=== PATIENT | female | born 1930 | race Caucasian/White ===

== ENCOUNTER 2017-04-21 15:26 | Emergency (ER) | payer MEDICARE ==
[~2017-04-21] VITALS: Ht 152.4 cm; Wt 44.5 kg
[~2017-04-21 15:26] MED LIST: ACET325T9 PO; ALBU2.5V14 NEB; AMOX1TAB10 PO; ASPI-630 PO; BIFI1CAP PO; CALC-614 PO; CHOL100013 PO; HYDR500C16 PO; LORA0.5T PO; OMEG1CAP27 PO
--- NOTE | 2017-04-21 15:51 | PHYS DOC ---
Past Medical History Past Medical History: Anxiety, COPD, Depression, GERD, Pneumonia, UTI Additional Past Medical Histor: ULCER BRONCHIECTASIS POLYCYTHEMIA Past Surgical History: Hysterectomy Additional Past Surgical Histo: RIGHT MESECTOMY COLON RESECTION Alcohol Use: None Drug Use: None Adult General Chief Complaint Chief Complaint: WEAKNESS/GENERALIZED HPI HPI Patient is a 87 year old female who presents with complaint of fatigue and weakness. The patient was brought to the emergency department from a half-way by EMS after they were called due to patient being reported as unresponsive prior to their arrival. The patient has been undergoing care at the half-way after being recently hospitalized and treated for pneumonia. Patient recently finished her last dose of Levaquin for treatment. Patient also notes "they've been giving me a bunch of junk." When asked to clarify the patient was able to identify that she has been taking Ativan and states they have been treating her for anxiety with the medication. The patient states she has not been asking for it but states that they have been giving it to her daily. Patient has history of COPD. The patient currently is on oxygen to keep her oxygen saturations above 92%. Patient states that she does not normally wear oxygen regularly. Patient is currently under the care of Dr. Power at her half-way. Patient denies any other complaints at this time including chest pain, abdominal pain, nausea, vomiting, or shortness of breath. Review of Systems Review of Systems Constitutional: Generalized weakness, fatigue, denies fever or chills [] Eyes: Denies change in visual acuity, redness, or eye pain [] HENT: Denies nasal congestion or sore throat [] Respiratory: Denies cough or shortness of breath [] Cardiovascular: Denies chest pain or edema[] GI: Denies abdominal pain, nausea, vomiting, bloody stools or diarrhea [] : Denies dysuria or hematuria [] Musculoskeletal: Denies back pain or joint pain [] Integument: Denies rash or skin lesions [] Neurologic: Denies headache, focal weakness or sensory changes [] Allergies Allergies Allergies Coded Allergies Type Severity Reaction Last Updated Verified Sulfa (Sulfonamide Antibiotics) Allergy Intermediate Rash 01/12/14 Yes codeine Allergy Intermediate 04/07/16 Yes colloidal oatmeal Allergy Intermediate 04/07/16 Yes cyclobenzaprine Allergy Intermediate 04/07/16 Yes dimethicone Allergy Intermediate 04/07/16 Yes fentanyl Allergy Intermediate Shortness of Air 01/02/14 Yes menthol Allergy Intermediate 04/07/16 Yes morphine Allergy Intermediate 04/07/16 Yes moxifloxacin Allergy Intermediate 04/07/16 Yes soap Allergy Intermediate 04/07/16 Yes Physical Exam Physical Exam Constitutional: Alert, afebrile, no acute distress. [] HENT: Normocephalic, atraumatic, bilateral external ears normal, oropharynx moist, no oral exudates, nose normal. [] Eyes: PERRLA, EOMI, conjunctiva normal, no discharge. [] Neck: Normal range of motion, no tenderness, supple, no stridor. [] Cardiovascular:Heart rate regular rhythm, no murmur. [] Lungs & Thorax: Mild to moderate shortness of air movement bilaterally, no wheezes, coarse dry rales bilaterally.[] Abdomen: Bowel sounds normal, soft, no tenderness, no masses, no pulsatile masses. [] Skin: Warm, dry, no erythema, no rash. [] Back: No tenderness, no CVA tenderness. [] Extremities: No tenderness, no cyanosis, no clubbing, ROM intact, no edema. [] Neurologic: Alert and oriented X 3, normal motor function, normal sensory function, no focal deficits noted. [] Current Patient Data Vital Signs Vital Signs Date Time Temp Pulse Resp B/P (MAP) Pulse Ox O2 Delivery O2 Flow Rate FiO2 04/21/17 21:00 72 16 134/67 (89) 94 Room Air 04/21/17 19:00 2.0 04/21/17 15:30 99.0 99.0 Lab Values Laboratory Tests Test 04/21/17 16:00 04/21/17 18:25 White Blood Count 22.5 x10^3/uL (4.0-11.0) H Red Blood Count 3.64 x10^6/uL (3.50-5.40) Hemoglobin 12.1 g/dL (12.0-15.5) Hematocrit 37.3 % (36.0-47.0) Mean Corpuscular Volume 102 fL (79-100) H Mean Corpuscular Hemoglobin 33 pg (25-35) Mean Corpuscular Hemoglobin Concent 33 g/dL (31-37) Red Cell Distribution Width 18.5 % (11.5-14.5) H Platelet Count 741 x10^3/uL (140-400) H Neutrophils (%) (Auto) 98 % (31-73) H Lymphocytes (%) (Auto) 1 % (24-48) L Monocytes (%) (Auto) 0 % (0-9) Eosinophils (%) (Auto) 0 % (0-3) Basophils (%) (Auto) 0 % (0-3) Neutrophils # (Auto) 22.1 x10^3uL (1.8-7.7) H Lymphocytes # (Auto) 0.3 x10^3/uL (1.0-4.8) L Monocytes # (Auto) 0.1 x10^3/uL (0.0-1.1) Eosinophils # (Auto) 0.0 x10^3/uL (0.0-0.7) Basophils # (Auto) 0.1 x10^3/uL (0.0-0.2) Segmented Neutrophils % 89 % (35-66) H Band Neutrophils % 5 % (0-9) Lymphocytes % 5 % (24-48) L Monocytes % 1 % (0-10) Platelet Estimate Increased (ADEQUATE) Giant Platelets Present Poikilocytosis Slight Anisocytosis Slight Macrocytosis Slight Tear Drop Cells Occ Ovalocytes Few Schistocytes Occ Sodium Level 133 mmol/L (136-145) L Potassium Level 4.2 mmol/L (3.5-5.1) Chloride Level 98 mmol/L (98-107) Carbon Dioxide Level 26 mmol/L (21-32) Anion Gap 9 (6-14) Blood Urea Nitrogen 17 mg/dL (7-20) Creatinine 0.9 mg/dL (0.6-1.0) Estimated GFR (Cockcroft-Gault) 59.4 BUN/Creatinine Ratio 19 (6-20) Glucose Level 205 mg/dL (70-99) H Calcium Level 8.5 mg/dL (8.5-10.1) Magnesium Level 2.0 mg/dL (1.8-2.4) Total Bilirubin 0.7 mg/dL (0.2-1.0) Aspartate Amino Transferase (AST) 21 U/L (15-37) Alanine Aminotransferase (ALT) 15 U/L (14-59) Alkaline Phosphatase 86 U/L (46-116) Creatine Kinase 157 U/L (26-192) Creatine Kinase MB (Mass) 1.5 ng/mL (0.0-3.6) Creatine Kinase MB Relative Index 1.0 % (0-4) Troponin I Quantitative < 0.017 ng/mL (0.000-0.055) DO-Pmo-O-Type Natriuretic Peptide 916 pg/mL (0-449) H Total Protein 6.9 g/dL (6.4-8.2) Albumin 3.0 g/dL (3.4-5.0) L Albumin/Globulin Ratio 0.8 (1.0-1.7) L Urine Collection Type U cath Urine Color Yellow Urine Clarity Clear Urine pH 6.5 Urine Specific Saffell 1.015 Urine Protein Negative mg/dL (NEG-TRACE) Urine Glucose (UA) Negative mg/dL (NEG) Urine Ketones (Stick) Negative mg/dL (NEG) Urine Blood Negative (NEG) Urine Nitrite Negative (NEG) Urine Bilirubin Negative (NEG) Urine Urobilinogen Dipstick 0.2 mg/dL (0.2 mg/dL) Urine Leukocyte Esterase Negative (NEG) Urine RBC 0 /HPF (0-2) Urine WBC Occ /HPF (0-4) Urine Bacteria 0 /HPF (0-FEW) Urine Hyaline Casts Few /HPF Urine Mucus Mod /LPF Laboratory Tests 04/21/17 16:00 Laboratory Tests 04/21/17 16:00 EKG EKG Interpreted by me: Heart rate 80, sinus rhythm, normal intervals, normal axis, no acute ST/T-wave abnormalities present[] Radiology/Procedures Radiology/Procedures One view AP chest x-ray interpreted by me: Stable right upper lobe mass, no new pulmonary infiltrates or effusions[] Course & Med Decision Making Course & Med Decision Making Pertinent Labs and Imaging studies reviewed. (See chart for details) Patient was observed in the emergency department. The patient's blood work was remarkable for an elevated white count of 22, however patient has recently completed treatment for pneumonia and was on steroid therapy which could explain the patient's leukocytosis. The patient shows no other obvious signs of acute infection. I suspect that the patient's altered mental status may have been related to administration of Ativan in her half-way for treatment of her anxiety. I recommended that this be held at this time. I spoke with the patient's primary doctor, Dr. Power, who stated he would follow-up with patient in the half-way and reorder a CBC to ensure resolution leukocytosis. Spoke with patient regarding plan of care and she is in agreement with transfer back to the half-way. Advised return emergency department for any worsening symptoms. Patient voiced understanding and in agreement with treatment plan. Dragon Disclaimer Dragon Disclaimer This electronic medical record was generated, in whole or in part, using a voice recognition dictation system. Departure Departure Impression: Primary Impression: Altered mental status Additional Impression: Leukocytosis Disposition: 03 TRANSFER SNF Condition: STABLE Referrals: [facility] HUTCHISON (PCP) Patient Instructions: Altered Mental Status Additional Instructions: It is believed that your symptoms may be due to receiving Ativan for treatment of anxiety. It is recommended that staff hold your Ativan dosing until you have been reevaluated by your physician. Your white count was found to be elevated in the emergency department. We did not identify any source of infection at this time. After speaking with your doctor, it is recommended that you have a CBC rechecked in 2-3 days. Return to the emergency department for any worsening symptoms. Problem Qualifiers Primary Impression: Altered mental status Altered mental status type: somnolence Qualified Codes: R40.0 - Somnolence Additional Impression: Leukocytosis Leukocytosis type: unspecified Qualified Codes: D72.829 - Elevated white blood cell count, unspecified LUZMA FINN MD Apr 21, 2017 15:50
--- NOTE | 2017-04-21 15:59 | EKG ---
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
[2017-04-21 16:18] LABS: BASO % 0 % (0-3); EOS % 0 % (0-3); HEMATOCRIT 37.3 % (36.0-47.0); HEMOGLOBIN 12.1 g/dL (12.0-15.5); LYMPH # 0.3 x10^3/uL (1.0-4.8); LYMPH % 1 % (24-48); MEAN CORPUSCULAR HEMOGLOBIN 33 pg (25-35); MEAN CORPUSCULAR HGB CONC 33 g/dL (31-37); MEAN CORPUSCULAR VOLUME 102 fL (79-100); MONO % 0 % (0-9); NEUT % 98 % (31-73); PLATELET COUNT 741 x10^3/uL (140-400); RED BLOOD COUNT 3.64 x10^6/uL (3.50-5.40); RED CELL DISTRIBUTION WIDTH 18.5 % (11.5-14.5); WHITE BLOOD COUNT 22.5 x10^3/uL (4.0-11.0)
[2017-04-21 16:19] LABS: BASO # 0.1 x10^3/uL (0.0-0.2)
[2017-04-21 16:39] LABS: ANISOCYTOSIS SLIGHT; PLT ESTIMATE INCREASED (ADEQUATE); POIKILOCYTOSIS SLIGHT
[2017-04-21 16:40] LABS: OVALOCYTES FEW; SCHISTOCYTES OCC; TEAR DROP CELLS OCC
[2017-04-21 16:43] LABS: CALCIUM 8.5 mg/dL (8.5-10.1); CREATININE 0.9 mg/dL (0.6-1.0); GFR 59.4; POTASSIUM 4.2 mmol/L (3.5-5.1)
[2017-04-21 16:48] LABS: ALBUMIN/GLOBULIN RATIO 0.8 (1.0-1.7); TOTAL BILIRUBIN 0.7 mg/dL (0.2-1.0); TOTAL PROTEIN 6.9 g/dL (6.4-8.2)
[2017-04-21 16:58] LABS: CKMB MASS 1.5 ng/mL (0.0-3.6)
[2017-04-21 18:49] LABS: BILIRUBIN,URINE NEGATIVE (NEG); GLUCOSE,URINE NEGATIVE (NEG); NITRITE,URINE NEGATIVE (NEG); PH,URINE 6.5; PROTEIN,URINE NEGATIVE (NEG-TRACE); UROBILINOGEN,URINE 0.2 mg/dL (0.2 mg/dL)
[2017-04-21 19:04] LABS: BACTERIA,URINE 0 /HPF (0-FEW); RBC,URINE 0 /HPF (0-2); WBC,URINE OCC /HPF (0-4)
[2017-04-21 21:00] VITALS: BP 134/67
--- NOTE | 2017-04-22 08:47 | RAD ---
Indication change in mental status. Suspect CVA. Protocol exam. A single view of the chest was obtained and is compared to an examination 03/30/2017. Chronic background changes of fibrosis are seen appearing similar to the previous exam. Parenchymal opacity in the right upper lobe is also unchanged. A consolidated pneumonia is not seen. Significant pleural fluid is not seen. There is no pneumothorax. A significant change relative to the previous exam is not seen. IMPRESSION: No acute or focal process. No significant change. Chronic changes are noted.
== END 2017-04-21 21:22 | disposition home or self-care (01) ==
LOC: ER 15:26
DX: D72.829 Elevated white blood cell count, unspecified (principal); R41.82 Altered mental status, unspecified; J44.9 Chronic obstructive pulmonary disease, unspecified; K21.9 Gastro-esophageal reflux disease without esophagitis; Z87.440 Personal history of urinary (tract) infections; Z90.710 Acquired absence of both cervix and uterus; Z88.2 Allergy status to sulfonamides; Z88.5 Allergy status to narcotic agent; Z88.1 Allergy status to other antibiotic agents; Z88.8 Allergy status to other drugs, medicaments and biological substances; Z88.4 Allergy status to anesthetic agent; Z91.018 Allergy to other foods
CPT/HCPCS: 36415; 71010; 80053; 81001; 82553; 83735; 83880; 84484; 85007; 85025; 93005; 99285; P9612

== ENCOUNTER 2017-08-29 15:56 | Emergency (ER) | payer MEDICARE ==
[2017-08-29 16:58] LABS: BASO % 0 % (0-3); EOS % 0 % (0-3); HEMATOCRIT 22.9 % (36.0-47.0); HEMOGLOBIN 7.6 g/dL (12.0-15.5); LYMPH # 0.4 x10^3/uL (1.0-4.8); LYMPH % 9 % (24-48); MEAN CORPUSCULAR HEMOGLOBIN 36 pg (25-35); MEAN CORPUSCULAR HGB CONC 33 g/dL (31-37); MEAN CORPUSCULAR VOLUME 110 fL (79-100); MONO # 0.1 x10^3/uL (0.0-1.1); MONO % 3 % (0-9); NEUT # 3.8 x10^3uL (1.8-7.7); NEUT % 87 % (31-73); PLATELET COUNT 571 x10^3/uL (140-400); RED BLOOD COUNT 2.09 x10^6/uL (3.50-5.40); RED CELL DISTRIBUTION WIDTH 37.9 % (11.5-14.5); WHITE BLOOD COUNT 4.4 x10^3/uL (4.0-11.0)
[2017-08-29 17:02] LABS: ADD MAN DIFF? YES
[2017-08-29 17:12] LABS: ANION GAP 4 (6-14); BLOOD UREA NITROGEN 17 mg/dL (7-20); BUN/CREATININE RATIO 28 (6-20); CALCIUM 8.5 mg/dL (8.5-10.1); CARBON DIOXIDE 29 mmol/L (21-32); CHLORIDE 96 mmol/L (98-107); CREATININE 0.6 mg/dL (0.6-1.0); GFR 94.8; GLUCOSE 125 mg/dL (70-99); SODIUM 129 mmol/L (136-145)
[2017-08-29 17:27] LABS: ALBUMIN 2.9 g/dL (3.4-5.0); ALBUMIN/GLOBULIN RATIO 0.7 (1.0-1.7); ALK PHOS 56 U/L (46-116); ALT (SGPT) 13 U/L (14-59); AST (SGOT) 12 U/L (15-37); MAGNESIUM 2.1 mg/dL (1.8-2.4); TOTAL BILIRUBIN 1.1 mg/dL (0.2-1.0); TOTAL PROTEIN 6.8 g/dL (6.4-8.2)
[2017-08-29] MEDS: diphenhydrAMINE 50 MG/ML VIAL IVP (17:30)
[2017-08-29] MEDS: IV NORMAL SALINE 1000ML BAG 1,000 ML IV (17:30)
[2017-08-29] MEDS: PROCHLORPERAZINE 10 MG/2 ML VIAL. IV (17:31)
[2017-08-29 17:49] LABS: BILIRUBIN,URINE NEGATIVE (NEG); CLARITY,URINE CLEAR; COLOR,URINE YELLOW; GLUCOSE,URINE NEGATIVE (NEG); NITRITE,URINE NEGATIVE (NEG); PROTEIN,URINE NEGATIVE (NEG-TRACE); UROBILINOGEN,URINE 0.2 mg/dL (0.2 mg/dL)
[2017-08-29 18:07] LABS: BACTERIA,URINE FEW /HPF (0-FEW); RBC,URINE 0 /HPF (0-2); SQUAMOUS EPITHELIAL CELL,UR MOD /LPF; WBC,URINE 0 /HPF (0-4)
[2017-08-29 18:27] LABS: % BANDS 7 % (0-9); % BASOS 1 % (0-3); % LYMPHS 7 % (24-48); % MONOS 4 % (0-10); % SEGS 81 % (35-66); PLT ESTIMATE INCREASED (ADEQUATE)
[2017-08-29 18:28] LABS: ANISOCYTOSIS MARKED; BIZZARE CELLS FEW; HYPOCHROMIA SLIGHT; OVALOCYTES MOD; STOMATOCYTES FEW; TEAR DROP CELLS OCC
== END 2017-08-29 19:35 | disposition home or self-care (01) ==
LOC: ER 15:56
DX: G43.909 Migraine, unspecified, not intractable, without status migrainosus (principal); J44.9 Chronic obstructive pulmonary disease, unspecified; D64.9 Anemia, unspecified; E87.1 Hypo-osmolality and hyponatremia; F32.9 Major depressive disorder, single episode, unspecified; F41.9 Anxiety disorder, unspecified; I10 Essential (primary) hypertension; K21.9 Gastro-esophageal reflux disease without esophagitis; Z88.2 Allergy status to sulfonamides; Z88.5 Allergy status to narcotic agent; Z88.4 Allergy status to anesthetic agent; Z88.1 Allergy status to other antibiotic agents; Z88.6 Allergy status to analgesic agent; Z88.8 Allergy status to other drugs, medicaments and biological substances
CPT/HCPCS: 36415; 71045; 80053; 81001; 83735; 85007; 85025; 93005; 96361; 96374; 96375; 99285-25; J0780; J1200; J7030

== ENCOUNTER → 2018-04-04 | Outpatient (CLI) | payer MEDICARE ==
[2017-08-29 18:46] VITALS: BP 124/59
[~2018-04-04] MED LIST changes: +ALPR0.25 PO; +FLUT9.9S NS; +GUAI-108 PO; +LEVO500T59 PO; +MELA3TAB2 PO; +PANT40TA3 PO; +PRED-220 PO; +PRED20TA PO; +PRED5TAB PO
--- NOTE | 2018-04-04 14:22 | RAD ---
Right ankle brachial index.. 04/04/2018 INDICATION: Right lower extremity wound COMPARISON STUDY: None Discussion: Left brachial pressure: 120 mmHg Right brachial pressure: Unobtainable secondary to prior mastectomy Right ankle pressure: 111 mmHg Right LU is 1.08 Impression: Normal right ankle brachial index Electronically signed by: Qasim Souza MD (04/04/2018 2:18 PM) [id number]
--- NOTE | 2018-04-04 16:46 | RAD ---
Right lower extremity arterial Doppler ultrasound HISTORY: non healing wound rt foot TECHNIQUE: Color Doppler, grayscale and duplex analysis performed of the right lower extremity arterial structures, from the common femoral artery through the runoff vessels. COMPARISON: None are available Findings: All velocity measurements are in centimeters per second. Mostly biphasic waveforms from the right common femoral artery through the calf and ankle. Mild irregular mural plaquing identified throughout. Velocities range from 46 through 111. No occlusive disease or high-grade stenosis identified. IMPRESSION: Mild atherosclerotic disease without evidence of high-grade stenosis or occlusion. Electronically signed by: Aldair Paredes MD (04/04/2018 4:42 PM) [id number]
== END | disposition home or self-care (01) ==
LOC: PMGWOUND 09:53
PROVIDERS: ATTEND Emergency Medicine Undersea and Hyperbaric Medicine
DX: I87.311 Chronic venous hypertension (idiopathic) with ulcer of right lower extremity (principal); L97.211 Non-pressure chronic ulcer of right calf limited to breakdown of skin; L89.613 Pressure ulcer of right heel, stage 3; F41.9 Anxiety disorder, unspecified; F32.9 Major depressive disorder, single episode, unspecified; J44.9 Chronic obstructive pulmonary disease, unspecified; M81.0 Age-related osteoporosis without current pathological fracture; G43.909 Migraine, unspecified, not intractable, without status migrainosus; K21.9 Gastro-esophageal reflux disease without esophagitis; Z90.710 Acquired absence of both cervix and uterus; Z85.828 Personal history of other malignant neoplasm of skin; Z85.038 Personal history of other malignant neoplasm of large intestine; Z86.711 Personal history of pulmonary embolism; Z85.3 Personal history of malignant neoplasm of breast; Z87.891 Personal history of nicotine dependence
CPT/HCPCS: 93922; 93926; 99204

== ENCOUNTER → 2018-04-25 | Outpatient (CLI) | payer MEDICARE ==
[2017-08-29 18:46] VITALS: BP 124/59
[~2018-04-25] MED LIST changes: +ACET-1574 PO; +CYAN10005 PO; +DIAZ2TAB PO; +DOCU-109 PO; +FURO40TA4 PO; +GABA-585 PO; +IBUP-1027 PO; +MAG355OR12 PO; +MAGN400O7 PO; +MENT118G TP; +METO25TA4 PO; +MINE396O2 TP; +MIRA25TA PO; +ONDA4TAB10 SL; +POLY119P19 PO; +SODI50DR NS; +TRAM50TA PO
== END | disposition home or self-care (01) ==
LOC: PMGWOUND 13:43
PROVIDERS: ATTEND Emergency Medicine Undersea and Hyperbaric Medicine
DX: I87.311 Chronic venous hypertension (idiopathic) with ulcer of right lower extremity (principal); L97.211 Non-pressure chronic ulcer of right calf limited to breakdown of skin; L89.613 Pressure ulcer of right heel, stage 3; L84 Corns and callosities; F41.9 Anxiety disorder, unspecified; F32.9 Major depressive disorder, single episode, unspecified; J44.9 Chronic obstructive pulmonary disease, unspecified; G43.909 Migraine, unspecified, not intractable, without status migrainosus; M81.0 Age-related osteoporosis without current pathological fracture; K21.9 Gastro-esophageal reflux disease without esophagitis; H91.90 Unspecified hearing loss, unspecified ear; Z90.710 Acquired absence of both cervix and uterus; Z85.3 Personal history of malignant neoplasm of breast; Z86.711 Personal history of pulmonary embolism; Z87.891 Personal history of nicotine dependence; Z85.038 Personal history of other malignant neoplasm of large intestine
CPT/HCPCS: 97597

== ENCOUNTER 2018-05-06 11:51 | Inpatient (IN) | payer MEDICARE ==
[2018-05-06] VITALS (11 sets, daily range): BP systolic 93–135; BP diastolic 43–60
[~2018-05-06] VITALS: Ht 157.5 cm; Wt 41.3 kg
[~2018-05-06 11:51] MED LIST changes: -ACET-1574 PO; -CYAN10005 PO; -DIAZ2TAB PO; -DOCU-109 PO; -FURO40TA4 PO; -GABA-585 PO; -IBUP-1027 PO; -MAG355OR12 PO; -MAGN400O7 PO; -MENT118G TP; -METO25TA4 PO; -MINE396O2 TP; -MIRA25TA PO; -ONDA4TAB10 SL; -POLY119P19 PO; -SODI50DR NS; -TRAM50TA PO
[2018-05-06 12:45] LABS: FECAL OB PT NEGATIVE (NEG)
[2018-05-06 13:03] LABS: BASO % 0 % (0-3); EOS % 0 % (0-3); LYMPH # 0.2 x10^3/uL (1.0-4.8); LYMPH % 7 % (24-48); MEAN CORPUSCULAR HEMOGLOBIN 45 pg (25-35); MEAN CORPUSCULAR HGB CONC 35 g/dL (31-37); MEAN CORPUSCULAR VOLUME 128 fL (79-100); MONO # 0.1 x10^3/uL (0.0-1.1); MONO % 5 % (0-9); NEUT # 2.4 x10^3uL (1.8-7.7); NEUT % 88 % (31-73); PLATELET COUNT 289 x10^3/uL (140-400); WHITE BLOOD COUNT 2.7 x10^3/uL (4.0-11.0)
[2018-05-06 13:08] LABS: HEMATOCRIT 15.3 % (36.0-47.0); HEMOGLOBIN 5.3 g/dL (12.0-15.5)
[2018-05-06 13:11] LABS: PROTHROMBIN TIME PATIENT 14.9 SEC (11.7-14.0)
[2018-05-06 13:14] LABS: CALCIUM 8.7 mg/dL (8.5-10.1); CREATININE 0.8 mg/dL (0.6-1.0); GFR 67.8; POTASSIUM 3.7 mmol/L (3.5-5.1)
[2018-05-06 13:20] LABS: ALBUMIN 3.4 g/dL (3.4-5.0); DIRECT BILIRUBIN 0.4 mg/dL (0.0-0.2); TOTAL BILIRUBIN 1.9 mg/dL (0.2-1.0); TOTAL PROTEIN 7.2 g/dL (6.4-8.2)
[2018-05-06 13:28] LABS: % BANDS 11 % (0-9); % BASOS 1 % (0-3); % LYMPHS 5 % (24-48); % MONOS 3 % (0-10); % SEGS 80 % (35-66); PLT ESTIMATE ADEQUATE (ADEQUATE)
[2018-05-06 13:29] LABS: ANISOCYTOSIS MARKED; POLYCHROMASIA PRESENT; TEAR DROP CELLS FEW
[2018-05-06 13:30] LABS: HYPERSEGS PRESENT; OVALOCYTES MOD; SCHISTOCYTES OCC
[2018-05-06] MEDS ORDERED: ONDANSETRON PF 4 MG/2 ML VIAL. IV PRN (13:30)
[2018-05-06] MEDS ORDERED: ACETAMINOPHEN 325 MG TABLET. PO PRN (13:30)
--- NOTE | 2018-05-06 14:23 | PHYS DOC ---
Past Medical History Past Medical History: Anxiety, COPD, Depression, GERD, Hypertension, Pneumonia , UTI Additional Past Medical Histor: ULCER; BRONCHIECTASIS; POLYCYTHEMIA VERA Past Surgical History: Hysterectomy Additional Past Surgical Histo: RIGHT MASTECTOMY; COLON RESECTION Alcohol Use: None Drug Use: None Adult General Chief Complaint Chief Complaint: OTHER COMPLAINTS [facility] HPI Patient is a 88 year old female who presents with anemia. The patient denies complaints. She [facility] Her hemoglobin was checked this morning and noted to be less than 6. The patient states she was having breakfast when the ambulance personnel came to pick her up and she was unaware why. On arrival to the ER she is awake and alert and pleasant. She has no complaints of dizziness, tachycardia. She denies melena or hematochezia. No abdominal pain. Review of Systems Review of Systems Constitutional: Denies fever or chills Eyes: Denies change in visual acuity HENT: Denies Respiratory: Denies cough Cardiovascular: No additional information not addressed in HPI GI: Denies abdominal pain : Denies dysuria or hematuria Musculoskeletal: Denies back pain Integument: Denies rash Neurologic: Denies headache All other systems were reviewed and found to be within normal limits, except as documented in this note. Allergies Allergies Allergies Coded Allergies Type Severity Reaction Last Updated Verified Sulfa (Sulfonamide Antibiotics) Allergy Intermediate Rash 01/12/14 Yes codeine Allergy Intermediate 04/07/16 Yes colloidal oatmeal Allergy Intermediate 04/07/16 Yes cyclobenzaprine Allergy Intermediate 04/07/16 Yes dimethicone Allergy Intermediate 04/07/16 Yes fentanyl Allergy Intermediate Shortness of Air 01/02/14 Yes menthol Allergy Intermediate 04/07/16 Yes morphine Allergy Intermediate 04/07/16 Yes moxifloxacin Allergy Intermediate 06/26/17 Yes soap Allergy Intermediate 04/07/16 Yes Physical Exam Physical Exam Constitutional: Well developed, well nourished, no acute distress, non-toxic appearance HENT: Normocephalic, atraumatic, bilateral external ears normal, oropharynx moist Eyes: PERRLA, EOMI, conjunctiva are pale Neck: Normal range of motion, no tenderness, supple Cardiovascular:Heart rate regular rhythm, 3/6 systolic murmur heard over globally Lungs & Thorax: Bilateral breath sounds clear to auscultation Abdomen: Bowel sounds normal, soft, no tenderness Skin: Warm, dry, no erythema, no rash, pale Back: No tenderness Extremities: No edema. clean dry dressing over left heel Neurologic: Alert and oriented X 3, normal motor function Psychologic: Affect normal Current Patient Data Vital Signs Vital Signs Date Time Temp Pulse Resp B/P (MAP) Pulse Ox O2 Delivery O2 Flow Rate FiO2 05/06/18 11:51 97.7 81 14 103/52 (69) 97 Room Air 97.7 Lab Values Laboratory Tests Test 05/06/18 12:20 05/06/18 12:45 Stool Occult Blood Negative (NEG) White Blood Count 2.7 x10^3/uL (4.0-11.0) L Red Blood Count 1.20 x10^6/uL (3.50-5.40) L Hemoglobin 5.3 g/dL (12.0-15.5) *L Hematocrit 15.3 % (36.0-47.0) *L Mean Corpuscular Volume 128 fL (79-100) H Mean Corpuscular Hemoglobin 45 pg (25-35) H Mean Corpuscular Hemoglobin Concent 35 g/dL (31-37) Red Cell Distribution Width 21.0 % (11.5-14.5) H Platelet Count 289 x10^3/uL (140-400) Neutrophils (%) (Auto) 88 % (31-73) H Lymphocytes (%) (Auto) 7 % (24-48) L Monocytes (%) (Auto) 5 % (0-9) Eosinophils (%) (Auto) 0 % (0-3) Basophils (%) (Auto) 0 % (0-3) Neutrophils # (Auto) 2.4 x10^3uL (1.8-7.7) Lymphocytes # (Auto) 0.2 x10^3/uL (1.0-4.8) L Monocytes # (Auto) 0.1 x10^3/uL (0.0-1.1) Eosinophils # (Auto) 0.0 x10^3/uL (0.0-0.7) Basophils # (Auto) 0.0 x10^3/uL (0.0-0.2) Segmented Neutrophils % 80 % (35-66) H Band Neutrophils % 11 % (0-9) H Lymphocytes % 5 % (24-48) L Monocytes % 3 % (0-10) Basophils % 1 % (0-3) Hypersegmented Neutrophils Present Platelet Estimate Adequate (ADEQUATE) Large Platelets Few Polychromasia Present Anisocytosis Marked Macrocytosis Marked Tear Drop Cells Few Ovalocytes Mod Schistocytes Occ Reticulocyte Count (auto) 0.9 % (0.5-2.5) Prothrombin Time 14.9 SEC (11.7-14.0) H Prothrombin Time INR 1.2 (0.8-1.1) H PTT 32 SEC (24-38) Sodium Level 137 mmol/L (136-145) Potassium Level 3.7 mmol/L (3.5-5.1) Chloride Level 101 mmol/L (98-107) Carbon Dioxide Level 29 mmol/L (21-32) Anion Gap 7 (6-14) Blood Urea Nitrogen 21 mg/dL (7-20) H Creatinine 0.8 mg/dL (0.6-1.0) Estimated GFR (Cockcroft-Gault) 67.8 Glucose Level 140 mg/dL (70-99) H Calcium Level 8.7 mg/dL (8.5-10.1) Total Bilirubin 1.9 mg/dL (0.2-1.0) H Direct Bilirubin 0.4 mg/dL (0.0-0.2) H Aspartate Amino Transferase (AST) 16 U/L (15-37) Alanine Aminotransferase (ALT) 8 U/L (14-59) L Alkaline Phosphatase 61 U/L (46-116) Lactate Dehydrogenase 398 U/L (81-234) H Total Protein 7.2 g/dL (6.4-8.2) Albumin 3.4 g/dL (3.4-5.0) Laboratory Tests 05/06/18 12:45 Laboratory Tests 05/06/18 12:45 EKG EKG [] Radiology/Procedures Radiology/Procedures [] Course & Med Decision Making Course & Med Decision Making Pertinent Labs and Imaging studies reviewed. (See chart for details) Patient was evaluated in the emergency department for anemia. Her hemoglobin was found to be 5.2. 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 Because of this, I did consult with hematology physician liaison. Some additional labs were ordered at the request including reticulocyte count, vitamin B studies, iron studies. Today, the patient is macrocytic with an MCV over 120. In the emergency department, her vital signs remained stable. She was not tachycardic. She had no complaints. Orders are placed to type and cross and transfuse for 2 units of packed red blood cells on admission. Consult was placed for oncology to see the patient. Bridge orders placed. I spoke to Dr. Mckoy, the patient's primary, who was agreeable to admit the patient. Dragon Disclaimer Dragon Disclaimer This electronic medical record was generated, in whole or in part, using a voice recognition dictation system. Departure Departure Referrals: KYLE MCKOY MD (PCP) JOHNNY JOHNSON DO May 06, 2018 14:23
--- NOTE | 2018-05-06 16:04 | PDOC2 ---
CONSULT Date of Consult Date of Consult DATE: 05/06/18 TIME: 15:51 Reason for Consult Reason for Consult: Anemia with MCV >120 Referring Physician Referring Physician: Dr. Zamna Source Source: Chart review, Patient History of Present Illness Reason for Visit: 88 yo female who has a history of polycythemia with myelofibrosis for many years. She was last seen by hematology 07/19/[address] Salazar. At that time she was on Hydrea 1000mg daily. She had a cbc that showed her hgb was <6 and she was sent to the ED for evaluation. Upon arrival she had a repeat cbc that showed a wbc of 2.7, hgb of 5.3 and plt count of 289 with an MCV of 128. The patient denies any bleeding or other symptoms. From talking to her and reviewing her med list it appears she has been continuing her hydrea but at a dose of 1000mg twice daily. She denies any sob, chest pain. I spoke to the ED about her case and iron studies, b12, folic acid, retic, haptoglobin, LDH labs were ordered prior to her being transfused. Past Medical History Cardiovascular: HTN Pulmonary: COPD, Other Heme/Onc: Cancer Past Surgical History Past Surgical History: Mastectomy, Tonsillectomy, Hysterectomy, Colon Resection Family History Family History: Cancer Social History ALCOHOL: occassional Drugs: None Current Medications Current Medications Current Medications Ondansetron HCl (Zofran) 4 mg PRN Q8HRS PRN IV NAUSEA/VOMITING; Start at 13:30; Stop 05/07/18 at 13:29 Acetaminophen (Tylenol) 650 mg PRN Q4HRS PRN PO FEVER; Start 05/06/18 at 13:30 ; Stop 05/07/18 at 13:29 Active Scripts Active Reported Xanax (Alprazolam) 0.25 Mg Tablet 1 Tab PO DAILY Protonix (Pantoprazole Sodium) 40 Mg Tablet.dr 1 Tab PO DAILY Prednisone 20 Mg Tablet 40 Mg PO DAILY Prednisone 20 Mg Tablet 1 Tab PO DAILY Prednisone 10 Mg Tablet 30 Mg PO DAILY Prednisone 5 Mg Tablet 5 Mg PO Melatonin 3 Mg Tablet 6 Mg PO Levaquin (Levofloxacin) 500 Mg Tablet 1 Tab PO DAILY Mucinex Dm Er 600-30 Mg Tablet (Guaifenesin/Dextromethorphan) 1 Each Tab.er.12h 1 Tab PO PRN Q12HRS Flonase Allergy Relief (Fluticasone Propionate) 9.9 Ml [place].susp 2 Sprays NS DAILY Albuterol Sulfate Conc Neb Soln (Albuterol Sulfate) 2.5 Mg/0.5 Ml Vial.neb 2.5 Mg NEB PRN Q4HRS PRN Tylenol (Acetaminophen) 325 Mg Tablet 1 Tab PO PRN Q4HRS PRN Digestive Probiotic (Bifidobacterium Infantis) 1 Each Capsule 1 Each PO DAILY Lorazepam 0.5 Mg Tablet 0.5 Mg PO BID Fish Oil 1,000 Mg Softgel (Fellows-3 Fatty Acids/Fish Oil) 1 Each Capsule 1 Each PO DAILY Vitamin D (Cholecalciferol (Vitamin D3)) 1,000 Unit Capsule 1,000 Unit PO DAILY Calcium Citrate 200 Mg Tablet 200 Mg PO DAILY Hydroxyurea 500 Mg Capsule 500 Mg PO DAILY Allergies Allergies: Coded Allergies: Sulfa (Sulfonamide Antibiotics) (Verified Allergy, Intermediate, Rash, ) codeine (Verified Allergy, Intermediate, 05/06/18) colloidal oatmeal (Verified Allergy, Intermediate, 05/06/18) cyclobenzaprine (Verified Allergy, Intermediate, 05/06/18) dimethicone (Verified Allergy, Intermediate, 05/06/18) fentanyl (Verified Allergy, Intermediate, Shortness of Air, 05/06/18) menthol (Verified Allergy, Intermediate, 05/06/18) morphine (Verified Allergy, Intermediate, 05/06/18) moxifloxacin (Verified Allergy, Intermediate, 05/06/18) PT CURRENTLY TAKING LEVAQUIN PO WITH NO PROBLEM soap (Verified Allergy, Intermediate, 05/06/18) ROS General: No: Chills, Night Sweats, Fatigue, Malaise, Appetite, Other PSYCHOLOGICAL ROS: No: Anxiety, Behavioral Disorder, Concentration difficultie , Decreased libido, Depression, Disorientation, Hallucinations, Hostility, Irritablity, Memory difficulties, Mood Swings, Obsessive thoughts, Physical abuse, Sexual abuse, Sleep disturbances, Suicidal ideation, Other Eyes: No Blurry vision, No Decreased vision, No Double vision, No Dry eyes, No Excessive tearing, No Eye Pain, No Itchy Eyes, No Loss of vision, No Photophobia , No Scotomata, No Uses contacts, No Uses glasses, No Other HEENT: No: Heacaches, Visual Changes, Hearing change, Nasal congestion, Nasal discharge, Oral lesions, Sinus pain, Sore Throat, Epistaxis, Sneezing, Snoring, Tinnitus, Vertigo, Vocal changes, Other ALLERGY AND IMMUNOLOGY: No: Hives, Insect Bite Sensitivity, Itchy/Watery Eyes, Nasal Congestion, Post Nasal Drip, Seasonal Allergies, Other Hematological and Lymphatic: No: Bleeding Problems, Blood Clots, Blood Transfusions, Brusing, Night Sweats, Pallor, Swollen Lymph Nodes, Other ENDOCRINE: No: Breast Changes, Galactorrhea, Hair Pattern Changes, Hot Flashes , Malaise/lethargy, Mood Swings, Palpitations, Polydipsia/polyuria, Skin Changes , Temperature Intolerance, Unexpected Weight Changes, Other Breast: No New/Changing Breast Lumps, No Nipple changes, No Nipple discharge, No Other Respiratory: No: Cough, Hemoptysis, Orthopnea, Pleuritic Pain, Shortness of breath, SOB with excertion, Sputum Changes, Stridor, Tachypnea, Wheezing, Other Cardiovascular: No Chest Pain, No Palpitations, No Orthopnea, No Paroxysmal Noc. Dyspnea, No Edema, No Lt Headedness, No Other Gastrointestinal: No Nausea, No Vomiting, No Abdominal Pain, No Diarrhea, No Constipation, No Melena, No Hematochezia, No Other Genitourinary: No Dysuria, No Frequency, No Incontinence, No Hematuria, No Retention, No Discharge, No Urgency, No Pain, No Flank Pain, No Other, No , No , No , No , No , No , No Musculoskeletal: No Gait Disturbance, No Joint Pain, No Joint Stiffness, No Joint Swelling, No Muscle Pain, No Muscular Weakness, No Pain In:, No Swelling In:, No Other Neurological: No Behavorial Changes, No Bowel/Bladder ControlChng, No Confusion , No Dizziness, No Gait Disturbance, No Headaches, No Impaired Coord/balance, No Memory Loss, No Numbness/Tingling, No Seizures, No Speech Problems, No Tremors, No Visual Changes, No Weakness, No Other Skin: No Dry Skin, No Eczema, No Hair Changes, No Lumps, No Mole Changes, No Mottling, No Nail Changes, No Pruritus, No Rash, No Skin Lesion Changes, No Other, No Acne Physical Exam General: Alert, Cooperative, No acute distress HEENT: PERRLA Lungs: Clear to auscultation, Normal air movement Heart: Regular rate, Normal S1, Other (positive murmur ?flow) Abdomen: Normal bowel sounds, Soft, No tenderness Extremities: No clubbing Vitals VITALS Vital Signs Date Time Temp Pulse Resp B/P (MAP) Pulse Ox O2 Delivery O2 Flow Rate FiO2 05/06/18 15:24 Nasal Cannula 2.0 05/06/18 15:22 97.9 79 18 93/43 97.9 05/06/18 15:07 2 Labs Labs Laboratory Tests Test 05/06/18 12:20 05/06/18 12:45 05/06/18 13:55 Stool Occult Blood Negative (NEG) White Blood Count 2.7 x10^3/uL (4.0-11.0) Red Blood Count 1.20 x10^6/uL (3.50-5.40) Hemoglobin 5.3 g/dL (12.0-15.5) Hematocrit 15.3 % (36.0-47.0) Mean Corpuscular Volume 128 fL (79-100) Mean Corpuscular Hemoglobin 45 pg (25-35) Mean Corpuscular Hemoglobin Concent 35 g/dL (31-37) Red Cell Distribution Width 21.0 % (11.5-14.5) Platelet Count 289 x10^3/uL (140-400) Neutrophils (%) (Auto) 88 % (31-73) Lymphocytes (%) (Auto) 7 % (24-48) Monocytes (%) (Auto) 5 % (0-9) Eosinophils (%) (Auto) 0 % (0-3) Basophils (%) (Auto) 0 % (0-3) Neutrophils # (Auto) 2.4 x10^3uL (1.8-7.7) Lymphocytes # (Auto) 0.2 x10^3/uL (1.0-4.8) Monocytes # (Auto) 0.1 x10^3/uL (0.0-1.1) Eosinophils # (Auto) 0.0 x10^3/uL (0.0-0.7) Basophils # (Auto) 0.0 x10^3/uL (0.0-0.2) Segmented Neutrophils % 80 % (35-66) Band Neutrophils % 11 % (0-9) Lymphocytes % 5 % (24-48) Monocytes % 3 % (0-10) Basophils % 1 % (0-3) Hypersegmented Neutrophils Present Platelet Estimate Adequate (ADEQUATE) Large Platelets Few Polychromasia Present Anisocytosis Marked Macrocytosis Marked Tear Drop Cells Few Ovalocytes Mod Schistocytes Occ Reticulocyte Count (auto) 0.9 % (0.5-2.5) Prothrombin Time 14.9 SEC (11.7-14.0) Prothromb Time International Ratio 1.2 (0.8-1.1) Activated Partial Thromboplast Time 32 SEC (24-38) Sodium Level 137 mmol/L (136-145) Potassium Level 3.7 mmol/L (3.5-5.1) Chloride Level 101 mmol/L (98-107) Carbon Dioxide Level 29 mmol/L (21-32) Anion Gap 7 (6-14) Blood Urea Nitrogen 21 mg/dL (7-20) Creatinine 0.8 mg/dL (0.6-1.0) Estimated GFR (Cockcroft-Gault) 67.8 Glucose Level 140 mg/dL (70-99) Calcium Level 8.7 mg/dL (8.5-10.1) Total Bilirubin 1.9 mg/dL (0.2-1.0) Direct Bilirubin 0.4 mg/dL (0.0-0.2) Aspartate Amino Transf (AST/SGOT) 16 U/L (15-37) Alanine Aminotransferase (ALT/SGPT) 8 U/L (14-59) Alkaline Phosphatase 61 U/L (46-116) Lactate Dehydrogenase 398 U/L (81-234) Total Protein 7.2 g/dL (6.4-8.2) Albumin 3.4 g/dL (3.4-5.0) Iron Level 23 ug/dL (50-170) Total Iron Binding Capacity 206 ug/dL (250-450) Iron Saturation 11 % (15-34) Laboratory Tests Test 05/06/18 12:20 05/06/18 12:45 05/06/18 13:55 Stool Occult Blood Negative (NEG) White Blood Count 2.7 x10^3/uL (4.0-11.0) Red Blood Count 1.20 x10^6/uL (3.50-5.40) Hemoglobin 5.3 g/dL (12.0-15.5) Hematocrit 15.3 % (36.0-47.0) Mean Corpuscular Volume 128 fL (79-100) Mean Corpuscular Hemoglobin 45 pg (25-35) Mean Corpuscular Hemoglobin Concent 35 g/dL (31-37) Red Cell Distribution Width 21.0 % (11.5-14.5) Platelet Count 289 x10^3/uL (140-400) Neutrophils (%) (Auto) 88 % (31-73) Lymphocytes (%) (Auto) 7 % (24-48) Monocytes (%) (Auto) 5 % (0-9) Eosinophils (%) (Auto) 0 % (0-3) Basophils (%) (Auto) 0 % (0-3) Neutrophils # (Auto) 2.4 x10^3uL (1.8-7.7) Lymphocytes # (Auto) 0.2 x10^3/uL (1.0-4.8) Monocytes # (Auto) 0.1 x10^3/uL (0.0-1.1) Eosinophils # (Auto) 0.0 x10^3/uL (0.0-0.7) Basophils # (Auto) 0.0 x10^3/uL (0.0-0.2) Segmented Neutrophils % 80 % (35-66) Band Neutrophils % 11 % (0-9) Lymphocytes % 5 % (24-48) Monocytes % 3 % (0-10) Basophils % 1 % (0-3) Hypersegmented Neutrophils Present Platelet Estimate Adequate (ADEQUATE) Large Platelets Few Polychromasia Present Anisocytosis Marked Macrocytosis Marked Tear Drop Cells Few Ovalocytes Mod Schistocytes Occ Reticulocyte Count (auto) 0.9 % (0.5-2.5) Prothrombin Time 14.9 SEC (11.7-14.0) Prothromb Time International Ratio 1.2 (0.8-1.1) Activated Partial Thromboplast Time 32 SEC (24-38) Sodium Level 137 mmol/L (136-145) Potassium Level 3.7 mmol/L (3.5-5.1) Chloride Level 101 mmol/L (98-107) Carbon Dioxide Level 29 mmol/L (21-32) Anion Gap 7 (6-14) Blood Urea Nitrogen 21 mg/dL (7-20) Creatinine 0.8 mg/dL (0.6-1.0) Estimated GFR (Cockcroft-Gault) 67.8 Glucose Level 140 mg/dL (70-99) Calcium Level 8.7 mg/dL (8.5-10.1) Total Bilirubin 1.9 mg/dL (0.2-1.0) Direct Bilirubin 0.4 mg/dL (0.0-0.2) Aspartate Amino Transf (AST/SGOT) 16 U/L (15-37) Alanine Aminotransferase (ALT/SGPT) 8 U/L (14-59) Alkaline Phosphatase 61 U/L (46-116) Lactate Dehydrogenase 398 U/L (81-234) Total Protein 7.2 g/dL (6.4-8.2) Albumin 3.4 g/dL (3.4-5.0) Iron Level 23 ug/dL (50-170) Total Iron Binding Capacity 206 ug/dL (250-450) Iron Saturation 11 % (15-34) Assessment/Plan Assessment/Plan 1. Leukopenia 2. Anemia with hgb 5.3 MCV 128 She has a long history of polycythemia vera and more recently has developed some myelofibrosis. She also has a history of iron deficiency in the past. Agree with transfusion, which she is currently receiving. Await iron studies, b12, folic acid, haptoglobin labs to come back. I also ordered a TSH. From reviewing her NH medications she was taking Hydrea 500mg 2 tabs twice daily and this could give the picture of a macrocytic anemia. I have asked her nurse to HOLD hydrea for the time being. Eventually, she may need to be restarted but with her significant cytopenia it should be held. Last records from state she was on 1000mg daily so I am not sure where it was increased. She will need to follow up with Dr. Salazar as an outpatient for further management once she is discharged. The last evaluation from hematology was in July and she missed her follow up and never rescheduled. 2. Lung mass. She has a known lung mass and it has been documented in the past that she did not want further workup. AUBREE MALIK MD May 06, 2018 16:04
[2018-05-06] MEDS ORDERED: DOCU-109 PO (17:19)
[2018-05-06] MEDS ORDERED: MINE396O2 TP (17:19)
[2018-05-06] MEDS ORDERED: SODI50DR NS (17:19)
[2018-05-06] MEDS ORDERED: MIRA25TA PO (17:19)
[2018-05-06] MEDS ORDERED: FURO40TA4 PO (17:19)
[2018-05-06] MEDS ORDERED: GABA-585 PO (17:19)
[2018-05-06] MEDS ORDERED: TRAM50TA PO (17:19)
[2018-05-06] MEDS ORDERED: MAGN400O7 PO (17:19)
[2018-05-06] MEDS ORDERED: DIAZ2TAB PO (17:19)
[2018-05-06] MEDS ORDERED: METO25TA4 PO (17:19)
[2018-05-06] MEDS ORDERED: IBUP-1027 PO (17:19)
[2018-05-06] MEDS ORDERED: MENT118G TP (17:19)
[2018-05-06] MEDS ORDERED: HYDR500C16 PO (17:19)
[2018-05-06] MEDS ORDERED: ASPI-630 PO (17:19)
[2018-05-06] MEDS ORDERED: ACET-1574 PO (17:19)
[2018-05-06] MEDS ORDERED: POLY119P19 PO (17:19)
[2018-05-06] MEDS ORDERED: ONDA4TAB10 SL (17:19)
[2018-05-06] MEDS ORDERED: CYAN10005 PO (17:19)
[2018-05-06] MEDS ORDERED: MAG355OR12 PO (17:19)
[2018-05-07] VITALS (8 sets, daily range): BP systolic 115–146; BP diastolic 50–60
[2018-05-07 06:31] LABS: BASO % 0 % (0-3); EOS % 0 % (0-3); HEMATOCRIT 25.4 % (36.0-47.0); HEMOGLOBIN 8.7 g/dL (12.0-15.5); LYMPH # 0.3 x10^3/uL (1.0-4.8); LYMPH % 10 % (24-48); MEAN CORPUSCULAR HEMOGLOBIN 36 pg (25-35); MEAN CORPUSCULAR HGB CONC 34 g/dL (31-37); MEAN CORPUSCULAR VOLUME 104 fL (79-100); MONO # 0.1 x10^3/uL (0.0-1.1); MONO % 4 % (0-9); NEUT # 2.9 x10^3uL (1.8-7.7); NEUT % 86 % (31-73); PLATELET COUNT 260 x10^3/uL (140-400); RED BLOOD COUNT 2.44 x10^6/uL (3.50-5.40); RED CELL DISTRIBUTION WIDTH 28.9 % (11.5-14.5); WHITE BLOOD COUNT 3.3 x10^3/uL (4.0-11.0)
--- NOTE | 2018-05-07 10:52 | PDOC ---
PROGRESS NOTES Subjective Subjective Pt seen in follow-up of macrocytic anemia. She also has a history of P vera and was on Hydrea. She received 2 units of blood and her hgb improved from 5.3 to 8.7. She is having pain at her right foot where she has an ulcer Objective Objective Vital Signs Date Time Temp Pulse Resp B/P (MAP) Pulse Ox O2 Delivery O2 Flow Rate FiO2 05/07/18 08:00 Room Air 2.0 05/07/18 07:47 98.1 82 17 128/60 (82) 96 98.1 Intake and Output 05/07/18 07:00 Intake Total 305 ml Balance 305 ml Intake Oral 0 ml Blood Product IV Normal Saline Flush 305 ml Physical Exam Abdomen: Normal bowel sounds, Soft Heart: Regular rate, Normal S1, Normal S2 Extremities: No clubbing General: Alert HEENT: PERRLA Lungs: Clear to auscultation MUSCULOSKELETAL: Other (Ulcer right foot) Neuro: Normal gait Assessment Assessment Mactrocytic anemia. I think that this is most likely from her being on the Hydrea. Would continue to hold. Her hgb has improved and would continue to monitor. On labs that were ordered when I talked to the ED, her haptoglobin was a little on the low side with a slightly high bilirubin. However, I do not think she is significantly hemolyzing given her improvement. I would repeat these labs to double check. Her Hydrea should NOT be restarted until she follows with Dr. Salazar as an outpatient. I discussed this with her son and [id number] Comment Review of Relevant I have reviewed the following items raudel (where applicable) has been applied. Labs Laboratory Tests Test 05/06/18 12:20 05/06/18 12:45 05/06/18 13:55 05/07/18 05:45 Stool Occult Blood Negative (NEG) White Blood Count 2.7 x10^3/uL (4.0-11.0) 3.3 x10^3/uL (4.0-11.0) Red Blood Count 1.20 x10^6/uL (3.50-5.40) 2.44 x10^6/uL (3.50-5.40) Hemoglobin 5.3 g/dL (12.0-15.5) 8.7 g/dL (12.0-15.5) Hematocrit 15.3 % (36.0-47.0) 25.4 % (36.0-47.0) Mean Corpuscular Volume 128 fL (79-100) 104 fL (79-100) Mean Corpuscular Hemoglobin 45 pg (25-35) 36 pg (25-35) Mean Corpuscular Hemoglobin Concent 35 g/dL (31-37) 34 g/dL (31-37) Red Cell Distribution Width 21.0 % (11.5-14.5) 28.9 % (11.5-14.5) Platelet Count 289 x10^3/uL (140-400) 260 x10^3/uL (140-400) Neutrophils (%) (Auto) 88 % (31-73) 86 % (31-73) Lymphocytes (%) (Auto) 7 % (24-48) 10 % (24-48) Monocytes (%) (Auto) 5 % (0-9) 4 % (0-9) Eosinophils (%) (Auto) 0 % (0-3) 0 % (0-3) Basophils (%) (Auto) 0 % (0-3) 0 % (0-3) Neutrophils # (Auto) 2.4 x10^3uL (1.8-7.7) 2.9 x10^3uL (1.8-7.7) Lymphocytes # (Auto) 0.2 x10^3/uL (1.0-4.8) 0.3 x10^3/uL (1.0-4.8) Monocytes # (Auto) 0.1 x10^3/uL (0.0-1.1) 0.1 x10^3/uL (0.0-1.1) Eosinophils # (Auto) 0.0 x10^3/uL (0.0-0.7) 0.0 x10^3/uL (0.0-0.7) Basophils # (Auto) 0.0 x10^3/uL (0.0-0.2) 0.0 x10^3/uL (0.0-0.2) Segmented Neutrophils % 80 % (35-66) Band Neutrophils % 11 % (0-9) Lymphocytes % 5 % (24-48) Monocytes % 3 % (0-10) Basophils % 1 % (0-3) Hypersegmented Neutrophils Present Platelet Estimate Adequate (ADEQUATE) Large Platelets Few Polychromasia Present Anisocytosis Marked Macrocytosis Marked Tear Drop Cells Few Ovalocytes Mod Schistocytes Occ Reticulocyte Count (auto) 0.9 % (0.5-2.5) Prothrombin Time 14.9 SEC (11.7-14.0) Prothromb Time International Ratio 1.2 (0.8-1.1) Activated Partial Thromboplast Time 32 SEC (24-38) Sodium Level 137 mmol/L (136-145) Potassium Level 3.7 mmol/L (3.5-5.1) Chloride Level 101 mmol/L (98-107) Carbon Dioxide Level 29 mmol/L (21-32) Anion Gap 7 (6-14) Blood Urea Nitrogen 21 mg/dL (7-20) Creatinine 0.8 mg/dL (0.6-1.0) Estimated GFR (Cockcroft-Gault) 67.8 Glucose Level 140 mg/dL (70-99) Calcium Level 8.7 mg/dL (8.5-10.1) Ferritin 372 ng/mL (8-252) Total Bilirubin 1.9 mg/dL (0.2-1.0) Direct Bilirubin 0.4 mg/dL (0.0-0.2) Aspartate Amino Transf (AST/SGOT) 16 U/L (15-37) Alanine Aminotransferase (ALT/SGPT) 8 U/L (14-59) Alkaline Phosphatase 61 U/L (46-116) Lactate Dehydrogenase 398 U/L (81-234) Total Protein 7.2 g/dL (6.4-8.2) Albumin 3.4 g/dL (3.4-5.0) Haptoglobin 21 mg/dL (34-200) Iron Level 23 ug/dL (50-170) Total Iron Binding Capacity 206 ug/dL (250-450) Iron Saturation 11 % (15-34) Thyroid Stimulating Hormone (TSH) 1.393 uIU/mL (0.358-3.74) Laboratory Tests Test 05/06/18 12:20 05/06/18 12:45 05/06/18 13:55 05/07/18 05:45 Stool Occult Blood Negative (NEG) White Blood Count 2.7 x10^3/uL (4.0-11.0) 3.3 x10^3/uL (4.0-11.0) Red Blood Count 1.20 x10^6/uL (3.50-5.40) 2.44 x10^6/uL (3.50-5.40) Hemoglobin 5.3 g/dL (12.0-15.5) 8.7 g/dL (12.0-15.5) Hematocrit 15.3 % (36.0-47.0) 25.4 % (36.0-47.0) Mean Corpuscular Volume 128 fL (79-100) 104 fL (79-100) Mean Corpuscular Hemoglobin 45 pg (25-35) 36 pg (25-35) Mean Corpuscular Hemoglobin Concent 35 g/dL (31-37) 34 g/dL (31-37) Red Cell Distribution Width 21.0 % (11.5-14.5) 28.9 % (11.5-14.5) Platelet Count 289 x10^3/uL (140-400) 260 x10^3/uL (140-400) Neutrophils (%) (Auto) 88 % (31-73) 86 % (31-73) Lymphocytes (%) (Auto) 7 % (24-48) 10 % (24-48) Monocytes (%) (Auto) 5 % (0-9) 4 % (0-9) Eosinophils (%) (Auto) 0 % (0-3) 0 % (0-3) Basophils (%) (Auto) 0 % (0-3) 0 % (0-3) Neutrophils # (Auto) 2.4 x10^3uL (1.8-7.7) 2.9 x10^3uL (1.8-7.7) Lymphocytes # (Auto) 0.2 x10^3/uL (1.0-4.8) 0.3 x10^3/uL (1.0-4.8) Monocytes # (Auto) 0.1 x10^3/uL (0.0-1.1) 0.1 x10^3/uL (0.0-1.1) Eosinophils # (Auto) 0.0 x10^3/uL (0.0-0.7) 0.0 x10^3/uL (0.0-0.7) Basophils # (Auto) 0.0 x10^3/uL (0.0-0.2) 0.0 x10^3/uL (0.0-0.2) Segmented Neutrophils % 80 % (35-66) Band Neutrophils % 11 % (0-9) Lymphocytes % 5 % (24-48) Monocytes % 3 % (0-10) Basophils % 1 % (0-3) Hypersegmented Neutrophils Present Platelet Estimate Adequate (ADEQUATE) Large Platelets Few Polychromasia Present Anisocytosis Marked Macrocytosis Marked Tear Drop Cells Few Ovalocytes Mod Schistocytes Occ Reticulocyte Count (auto) 0.9 % (0.5-2.5) Prothrombin Time 14.9 SEC (11.7-14.0) Prothromb Time International Ratio 1.2 (0.8-1.1) Activated Partial Thromboplast Time 32 SEC (24-38) Sodium Level 137 mmol/L (136-145) Potassium Level 3.7 mmol/L (3.5-5.1) Chloride Level 101 mmol/L (98-107) Carbon Dioxide Level 29 mmol/L (21-32) Anion Gap 7 (6-14) Blood Urea Nitrogen 21 mg/dL (7-20) Creatinine 0.8 mg/dL (0.6-1.0) Estimated GFR (Cockcroft-Gault) 67.8 Glucose Level 140 mg/dL (70-99) Calcium Level 8.7 mg/dL (8.5-10.1) Ferritin 372 ng/mL (8-252) Total Bilirubin 1.9 mg/dL (0.2-1.0) Direct Bilirubin 0.4 mg/dL (0.0-0.2) Aspartate Amino Transf (AST/SGOT) 16 U/L (15-37) Alanine Aminotransferase (ALT/SGPT) 8 U/L (14-59) Alkaline Phosphatase 61 U/L (46-116) Lactate Dehydrogenase 398 U/L (81-234) Total Protein 7.2 g/dL (6.4-8.2) Albumin 3.4 g/dL (3.4-5.0) Haptoglobin 21 mg/dL (34-200) Iron Level 23 ug/dL (50-170) Total Iron Binding Capacity 206 ug/dL (250-450) Iron Saturation 11 % (15-34) Thyroid Stimulating Hormone (TSH) 1.393 uIU/mL (0.358-3.74) Medications Current Medications Ondansetron HCl (Zofran) 4 mg PRN Q8HRS PRN IV NAUSEA/VOMITING; Start at 13:30; Stop 05/07/18 at 13:29 Acetaminophen (Tylenol) 650 mg PRN Q4HRS PRN PO FEVER Last administered on at 08:59; Start 05/06/18 at 13:30; Stop 05/07/18 at 13:29 Active Scripts Active Reported Zofran Odt (Ondansetron) 4 Mg Tab.rapdis 0.5 Tab SL PRN Q6HRS PRN Biofreeze (Menthol) 118 Ml Gel..ml. 118 Ml TP PRN QID PRN [place] Saline (Sodium Chloride) 50 Ml Drops 2 Drop NS TID Hydroxyurea 500 Mg Capsule 1,000 Mg PO BID Milk Of Magnesia (Magnesium Hydroxide) 400 Mg/5 Ml Oral.susp 30 Ml PO PRN DAILY PRN Maalox Maximum Strength Susp (Mag Hydrox/Al Hydrox/Simeth) 355 Ml Oral.susp 30 Ml PO PRN Q4HRS PRN Aquaphor Ointment (Mineral Oil/Hydrophil Petrolat) 396 Gm Oint...g. 396 Gm TP BID Furosemide 40 Mg Tablet 1 Tab PO DAILY Valium (Diazepam) 2 Mg Tablet 2 Mg PO PRN TID PRN Metoprolol Tartrate 25 Mg Tablet 1 Tab PO DAILY Myrbetriq (Mirabegron) 25 Mg Tab.er.24h 25 Mg PO DAILY Acetaminophen Ext.release (Acetaminophen) 650 Mg Tablet.er 650 Mg PO Q6HRS Ibuprofen 400 Mg Tablet 400 Mg PO QID PRN Tramadol Hcl 50 Mg Tablet 50 Mg PO PRN Q8HRS PRN Colace (Docusate Sodium) 100 Mg Capsule 1 Cap PO DAILYWLUN Glycolax (Polyethylene Glycol 3350) 119 Gm Powder 17 Gm PO DAILY Aspirin 81 Mg Tab.chew 1 Tab PO DAILY Vitamin B-12 (Cyanocobalamin (Vitamin B-12)) 1,000 Mcg Tablet 1 Tab PO DAILYWLUN Gabapentin 100 Mg Capsule 100 Mg PO QHS Prednisone 5 Mg Tablet 5 Mg PO DAILY Albuterol Sulfate Conc Neb Soln (Albuterol Sulfate) 2.5 Mg/0.5 Ml Vial.neb 2.5 Mg NEB PRN Q4HRS PRN Vitals/I & O Vital Sign - Last 24 Hours 05/06/18 05/06/18 05/06/18 05/06/18 11:51 12:24 12:54 13:24 Temp 97.7 97.7 Pulse 81 80 74 74 Resp 14 22 20 20 B/P (MAP) 103/52 (69) 98/54 (69) 95/53 (67) 98/53 (68) Pulse Ox 97 91 97 96 O2 Delivery Room Air Room Air Nasal Cannula Nasal Cannula O2 Flow Rate 2.0 2.0 05/06/18 05/06/18 05/06/18 05/06/18 13:54 15:07 15:22 15:24 Temp 97.9 97.9 97.9 97.9 Pulse 72 79 79 Resp 20 18 18 B/P (MAP) 100/52 (68) 93/43 (60) 93/43 Pulse Ox 96 2 O2 Delivery Nasal Cannula Nasal Cannula Nasal Cannula O2 Flow Rate 2.0 2.0 05/06/18 05/06/18 05/06/18 05/06/18 15:37 16:40 17:38 18:36 Temp 98.4 98.1 97.9 97.7 98.4 98.1 97.9 97.7 Pulse 79 80 77 84 Resp 18 17 18 19 B/P (MAP) 113/59 108/54 109/50 109/55 05/06/18 05/06/18 05/06/18 05/06/18 18:56 19:12 20:00 23:28 Temp 98.4 98.3 99.1 98.4 98.3 99.1 Pulse 77 83 86 Resp 17 16 18 B/P (MAP) 102/47 117/52 (73) 135/58 Pulse Ox 96 O2 Delivery Nasal Cannula Nasal Cannula O2 Flow Rate 2.0 2.0 05/06/18 05/06/18 05/07/18 05/07/18 23:40 23:42 00:49 01:48 Temp 99.4 98.4 98.4 98.2 99.4 98.4 98.4 98.2 Pulse 85 95 81 84 Resp 18 18 18 18 B/P (MAP) 135/58 (83) 129/60 121/50 126/56 Pulse Ox 97 O2 Delivery Nasal Cannula O2 Flow Rate 2.0 05/07/18 05/07/18 05/07/18 03:10 07:47 08:00 Temp 99.1 98.1 99.1 98.1 Pulse 58 82 Resp 18 17 B/P (MAP) 129/59 (82) 128/60 (82) Pulse Ox 99 96 O2 Delivery Nasal Cannula Nasal Cannula Room Air O2 Flow Rate 2.0 2.0 2.0 Intake and Output 05/06/18 05/06/18 05/07/18 15:00 23:00 07:00 Intake Total 55 ml 250 ml Balance 55 ml 250 ml AUBREE MALIK MD May 07, 2018 10:52
--- NOTE | 2018-05-07 11:01 | PDOC ---
Provider Note Provider Note [id number] SUSAN LNAIER MD May 07, 2018 11:01
[2018-05-07 11:43] LABS: ALBUMIN 3.2 g/dL (3.4-5.0); DIRECT BILIRUBIN 0.4 mg/dL (0.0-0.2); TOTAL BILIRUBIN 3.4 mg/dL (0.2-1.0)
--- NOTE | 2018-05-07 13:06 | HP ---
ADMIT DATE: 05/06/2018 CHIEF COMPLAINT: Anemia. HISTORY OF PRESENT ILLNESS: An 88-year-old white female with known polycythemia vera and some myelofibrosis, is followed at [facility] for this. She has been on hydroxyurea for some time, but came in with the severe anemia, macrocytic in nature, which has not been macrocytic in the past. Her white count is borderline low as well. Multiple blood tests including B12 levels are pending at this time and she has received 2 units of packed cells. Her red cells are up to 8.7. PAST MEDICAL HISTORY: Lung mass on CT, which has not been evaluated per the patient's request. ALLERGIES: Multiple allergies listed in the chart. SOCIAL HISTORY: Unknown. Nonsmoker. FAMILY HISTORY: Unremarkable. REVIEW OF SYSTEMS: No other known complaints. PHYSICAL EXAMINATION: EENT: Moderate pallor, otherwise no jaundice or other findings. NECK: No masses, nodes or bruits. LUNGS: Decreased breath sounds. CARDIOVASCULAR: Regular rate. Heart tones distant. Grade 2 systolic murmur is heard. ABDOMEN: Benign. EXTREMITIES: Unremarkable. She has no obvious bruising or bleeding. Nail beds are pale. NEUROLOGIC: Physiologic. ASSESSMENT: Severe anemia, macrocytic in nature at this time with a history of myelofibrosis in the past on hydroxyurea. Hemolysis and B12 deficiency must be considered given the severe macrocytic indices. PLAN: As ordered. SUSAN LANIER MD DR: TAPAN/brian JOB#: [id number] / [id number]
[2018-05-07] MEDS: ACETAMINOPHEN 325 MG TABLET. PO PRN (22:25)
[2018-05-08 03:15] VITALS: BP 154/76
[2018-05-08 07:00] VITALS: BP 137/64
[2018-05-08] MEDS: traMADol 50 MG TABLET PO PRN ×2 (08:26→21:08)
[2018-05-08 09:38] LABS: BASO % 0 % (0-3); EOS % 0 % (0-3); HEMATOCRIT 27.4 % (36.0-47.0); HEMOGLOBIN 9.4 g/dL (12.0-15.5); LYMPH # 0.2 x10^3/uL (1.0-4.8); LYMPH % 5 % (24-48); MEAN CORPUSCULAR HEMOGLOBIN 36 pg (25-35); MEAN CORPUSCULAR HGB CONC 34 g/dL (31-37); MEAN CORPUSCULAR VOLUME 104 fL (79-100); MONO # 0.2 x10^3/uL (0.0-1.1); MONO % 4 % (0-9); NEUT # 3.9 x10^3uL (1.8-7.7); NEUT % 91 % (31-73); PLATELET COUNT 254 x10^3/uL (140-400); RED BLOOD COUNT 2.63 x10^6/uL (3.50-5.40); RED CELL DISTRIBUTION WIDTH 28.5 % (11.5-14.5); WHITE BLOOD COUNT 4.3 x10^3/uL (4.0-11.0)
--- NOTE | 2018-05-08 10:15 | PDOC ---
PROGRESS NOTES Subjective Subjective HPI -f/u of anemia ROS - no bleeding Objective Objective Vital Signs Date Time Temp Pulse Resp B/P (MAP) Pulse Ox O2 Delivery O2 Flow Rate FiO2 05/08/18 09:35 Room Air 05/08/18 08:26 95 2.0 05/08/18 07:00 97.9 79 16 137/64 (88) 97.9 Intake and Output 05/08/18 07:00 Intake Total 870 ml Output Total 0 ml Balance 870 ml Intake Oral 870 ml Output Urine Total 0 ml # Voids 2 # Bowel Movements 1 Physical Exam Heart: Normal S1, Normal S2 General: Alert, Oriented X3, No acute distress Neuro: Normal speech Psych/Mental Status: Mental status NL Assessment Assessment Assessment/Plan 1. P.Vera - hold hydrea due to anemia. f/u with Dr Salazar at . She has a long history of polycythemia vera and more recently has developed some myelofibrosis. From reviewing her NH medications she was taking Hydrea 500mg 2 tabs twice daily and this could give the picture of a macrocytic anemia. I have asked her nurse to HOLD hydrea. 2. Anemia with hgb 5.3 MCV 128 Hb now better at 9.4. She will need to follow up with Dr. Salazar as an outpatient for further management once she is discharged. The last evaluation from hematology was in July and she missed her follow up and never rescheduled. 2. Lung mass. She has a known lung mass and it has been documented in the past that she did not want further workup. Comment Review of Relevant I have reviewed the following items raudel (where applicable) has been applied. Labs Laboratory Tests Test 05/06/18 12:20 05/06/18 12:45 05/06/18 13:55 05/06/18 16:15 Stool Occult Blood Negative (NEG) White Blood Count 2.7 x10^3/uL (4.0-11.0) Red Blood Count 1.20 x10^6/uL (3.50-5.40) Hemoglobin 5.3 g/dL (12.0-15.5) Hematocrit 15.3 % (36.0-47.0) Mean Corpuscular Volume 128 fL (79-100) Mean Corpuscular Hemoglobin 45 pg (25-35) Mean Corpuscular Hemoglobin Concent 35 g/dL (31-37) Red Cell Distribution Width 21.0 % (11.5-14.5) Platelet Count 289 x10^3/uL (140-400) Neutrophils (%) (Auto) 88 % (31-73) Lymphocytes (%) (Auto) 7 % (24-48) Monocytes (%) (Auto) 5 % (0-9) Eosinophils (%) (Auto) 0 % (0-3) Basophils (%) (Auto) 0 % (0-3) Neutrophils # (Auto) 2.4 x10^3uL (1.8-7.7) Lymphocytes # (Auto) 0.2 x10^3/uL (1.0-4.8) Monocytes # (Auto) 0.1 x10^3/uL (0.0-1.1) Eosinophils # (Auto) 0.0 x10^3/uL (0.0-0.7) Basophils # (Auto) 0.0 x10^3/uL (0.0-0.2) Segmented Neutrophils % 80 % (35-66) Band Neutrophils % 11 % (0-9) Lymphocytes % 5 % (24-48) Monocytes % 3 % (0-10) Basophils % 1 % (0-3) Hypersegmented Neutrophils Present Platelet Estimate Adequate (ADEQUATE) Large Platelets Few Polychromasia Present Anisocytosis Marked Macrocytosis Marked Tear Drop Cells Few Ovalocytes Mod Schistocytes Occ Reticulocyte Count (auto) 0.9 % (0.5-2.5) Prothrombin Time 14.9 SEC (11.7-14.0) Prothromb Time International Ratio 1.2 (0.8-1.1) Activated Partial Thromboplast Time 32 SEC (24-38) Sodium Level 137 mmol/L (136-145) Potassium Level 3.7 mmol/L (3.5-5.1) Chloride Level 101 mmol/L (98-107) Carbon Dioxide Level 29 mmol/L (21-32) Anion Gap 7 (6-14) Blood Urea Nitrogen 21 mg/dL (7-20) Creatinine 0.8 mg/dL (0.6-1.0) Estimated GFR (Cockcroft-Gault) 67.8 Glucose Level 140 mg/dL (70-99) Calcium Level 8.7 mg/dL (8.5-10.1) Ferritin 372 ng/mL (8-252) Total Bilirubin 1.9 mg/dL (0.2-1.0) Direct Bilirubin 0.4 mg/dL (0.0-0.2) Aspartate Amino Transf (AST/SGOT) 16 U/L (15-37) Alanine Aminotransferase (ALT/SGPT) 8 U/L (14-59) Alkaline Phosphatase 61 U/L (46-116) Lactate Dehydrogenase 398 U/L (81-234) Total Protein 7.2 g/dL (6.4-8.2) Albumin 3.4 g/dL (3.4-5.0) Haptoglobin 21 mg/dL (34-200) Iron Level 23 ug/dL (50-170) Total Iron Binding Capacity 206 ug/dL (250-450) Iron Saturation 11 % (15-34) Vitamin B12 Level 1575 pg/mL (247-911) Serum Folate 12.89 ng/ml (3.2-20.0) Nasal Screen MRSA (PCR) Negative (Negative) Test 05/07/18 05:45 05/07/18 12:55 05/08/18 09:10 White Blood Count 3.3 x10^3/uL (4.0-11.0) 4.3 x10^3/uL (4.0-11.0) Red Blood Count 2.44 x10^6/uL (3.50-5.40) 2.63 x10^6/uL (3.50-5.40) Hemoglobin 8.7 g/dL (12.0-15.5) 9.4 g/dL (12.0-15.5) Hematocrit 25.4 % (36.0-47.0) 27.4 % (36.0-47.0) Mean Corpuscular Volume 104 fL (79-100) 104 fL (79-100) Mean Corpuscular Hemoglobin 36 pg (25-35) 36 pg (25-35) Mean Corpuscular Hemoglobin Concent 34 g/dL (31-37) 34 g/dL (31-37) Red Cell Distribution Width 28.9 % (11.5-14.5) 28.5 % (11.5-14.5) Platelet Count 260 x10^3/uL (140-400) 254 x10^3/uL (140-400) Neutrophils (%) (Auto) 86 % (31-73) 91 % (31-73) Lymphocytes (%) (Auto) 10 % (24-48) 5 % (24-48) Monocytes (%) (Auto) 4 % (0-9) 4 % (0-9) Eosinophils (%) (Auto) 0 % (0-3) 0 % (0-3) Basophils (%) (Auto) 0 % (0-3) 0 % (0-3) Neutrophils # (Auto) 2.9 x10^3uL (1.8-7.7) 3.9 x10^3uL (1.8-7.7) Lymphocytes # (Auto) 0.3 x10^3/uL (1.0-4.8) 0.2 x10^3/uL (1.0-4.8) Monocytes # (Auto) 0.1 x10^3/uL (0.0-1.1) 0.2 x10^3/uL (0.0-1.1) Eosinophils # (Auto) 0.0 x10^3/uL (0.0-0.7) 0.0 x10^3/uL (0.0-0.7) Basophils # (Auto) 0.0 x10^3/uL (0.0-0.2) 0.0 x10^3/uL (0.0-0.2) Total Bilirubin 3.4 mg/dL (0.2-1.0) Direct Bilirubin 0.4 mg/dL (0.0-0.2) Aspartate Amino Transf (AST/SGOT) 30 U/L (15-37) Alanine Aminotransferase (ALT/SGPT) 7 U/L (14-59) Alkaline Phosphatase 60 U/L (46-116) Lactate Dehydrogenase 617 U/L (81-234) Total Protein 7.0 g/dL (6.4-8.2) Albumin 3.2 g/dL (3.4-5.0) Thyroid Stimulating Hormone (TSH) 1.393 uIU/mL (0.358-3.74) Haptoglobin 17 mg/dL (34-200) Laboratory Tests Test 05/07/18 12:55 05/08/18 09:10 Haptoglobin 17 mg/dL (34-200) White Blood Count 4.3 x10^3/uL (4.0-11.0) Red Blood Count 2.63 x10^6/uL (3.50-5.40) Hemoglobin 9.4 g/dL (12.0-15.5) Hematocrit 27.4 % (36.0-47.0) Mean Corpuscular Volume 104 fL (79-100) Mean Corpuscular Hemoglobin 36 pg (25-35) Mean Corpuscular Hemoglobin Concent 34 g/dL (31-37) Red Cell Distribution Width 28.5 % (11.5-14.5) Platelet Count 254 x10^3/uL (140-400) Neutrophils (%) (Auto) 91 % (31-73) Lymphocytes (%) (Auto) 5 % (24-48) Monocytes (%) (Auto) 4 % (0-9) Eosinophils (%) (Auto) 0 % (0-3) Basophils (%) (Auto) 0 % (0-3) Neutrophils # (Auto) 3.9 x10^3uL (1.8-7.7) Lymphocytes # (Auto) 0.2 x10^3/uL (1.0-4.8) Monocytes # (Auto) 0.2 x10^3/uL (0.0-1.1) Eosinophils # (Auto) 0.0 x10^3/uL (0.0-0.7) Basophils # (Auto) 0.0 x10^3/uL (0.0-0.2) Medications Current Medications Ondansetron HCl (Zofran) 4 mg PRN Q8HRS PRN IV NAUSEA/VOMITING; Start at 13:30; Stop 05/07/18 at 13:29; Status DC Acetaminophen (Tylenol) 650 mg PRN Q4HRS PRN PO FEVER Last administered on at 08:59; Start 05/06/18 at 13:30; Stop 05/07/18 at 13:29; Status DC Acetaminophen (Tylenol) 650 mg PRN Q6HRS PRN PO MILD PAIN Last administered on 05/07/18at 22:25; Start 05/07/18 at 20:15 Tramadol HCl (Ultram) 50 mg PRN Q6HRS PRN PO MILD TO MODERATE PAIN Last administered on 05/08/18at 08:26; Start 05/07/18 at 20:15 Active Scripts Active Reported Zofran Odt (Ondansetron) 4 Mg Tab.rapdis 0.5 Tab SL PRN Q6HRS PRN Biofreeze (Menthol) 118 Ml Gel..ml. 118 Ml TP PRN QID PRN [place] Saline (Sodium Chloride) 50 Ml Drops 2 Drop NS TID Hydroxyurea 500 Mg Capsule 1,000 Mg PO BID Milk Of Magnesia (Magnesium Hydroxide) 400 Mg/5 Ml Oral.susp 30 Ml PO PRN DAILY PRN Maalox Maximum Strength Susp (Mag Hydrox/Al Hydrox/Simeth) 355 Ml Oral.susp 30 Ml PO PRN Q4HRS PRN Aquaphor Ointment (Mineral Oil/Hydrophil Petrolat) 396 Gm Oint...g. 396 Gm TP BID Furosemide 40 Mg Tablet 1 Tab PO DAILY Valium (Diazepam) 2 Mg Tablet 2 Mg PO PRN TID PRN Metoprolol Tartrate 25 Mg Tablet 1 Tab PO DAILY Myrbetriq (Mirabegron) 25 Mg Tab.er.24h 25 Mg PO DAILY Acetaminophen Ext.release (Acetaminophen) 650 Mg Tablet.er 650 Mg PO Q6HRS Ibuprofen 400 Mg Tablet 400 Mg PO QID PRN Tramadol Hcl 50 Mg Tablet 50 Mg PO PRN Q8HRS PRN Colace (Docusate Sodium) 100 Mg Capsule 1 Cap PO DAILYWLUN Glycolax (Polyethylene Glycol 3350) 119 Gm Powder 17 Gm PO DAILY Aspirin 81 Mg Tab.chew 1 Tab PO DAILY Vitamin B-12 (Cyanocobalamin (Vitamin B-12)) 1,000 Mcg Tablet 1 Tab PO DAILYWLUN Gabapentin 100 Mg Capsule 100 Mg PO QHS Prednisone 5 Mg Tablet 5 Mg PO DAILY Albuterol Sulfate Conc Neb Soln (Albuterol Sulfate) 2.5 Mg/0.5 Ml Vial.neb 2.5 Mg NEB PRN Q4HRS PRN Vitals/I & O Vital Sign - Last 24 Hours 05/07/18 05/07/18 05/07/18 05/07/18 11:10 15:17 19:15 23:46 Temp 99.9 97.7 97.9 97.7 99.9 97.7 97.9 97.7 Pulse 92 79 84 79 Resp 18 18 18 18 B/P (MAP) 119/54 (75) 115/57 (76) 137/53 (81) 146/58 (87) Pulse Ox 95 96 98 96 O2 Delivery Nasal Cannula Nasal Cannula Nasal Cannula Nasal Cannula O2 Flow Rate 2.0 2.0 2.0 2.0 05/08/18 05/08/18 05/08/18 05/08/18 03:15 07:00 08:26 09:35 Temp 98.1 97.9 98.1 97.9 Pulse 82 79 Resp 18 16 B/P (MAP) 154/76 (102) 137/64 (88) Pulse Ox 95 97 95 O2 Delivery Nasal Cannula Room Air Room Air Room Air O2 Flow Rate 2.0 2.0 Intake and Output 05/07/18 05/07/18 05/08/18 15:00 23:00 07:00 Intake Total 540 ml 280 ml 50 ml Output Total 0 ml 0 ml Balance 540 ml 280 ml 50 ml CONNOR MONTEZ MD May 08, 2018 10:15
[2018-05-08 11:00] VITALS: BP 112/54
[2018-05-08] MEDS: ACETAMINOPHEN 325 MG TABLET. PO PRN (14:35)
[2018-05-08 15:00] VITALS: BP 128/61
[2018-05-08 19:20] VITALS: BP 133/59
--- NOTE | 2018-05-08 19:20 | PN ---
DATE: 05/08/2018 LOCATION: She is in room 650. SUBJECTIVE: The patient is awake and alert, bitterly complained about right heel pain. Otherwise, thinks she feels a little bit better after the transfusion. OBJECTIVE: VITAL SIGNS: Stable. T-max 99.9. Hematology help appreciated, and hydroxyurea is on hold currently. Hemoglobin is up to 8.7 after transfusion. White count was 3300 yesterday. Platelets 260. The patient, a month or so ago, did have vascular study on her right leg, arterial Doppler, that was normal. She does have 2 ulcers, one on the back of her heel and one on the lateral aspect of the heel that are exquisitely painful on exam and there is some smell to them today. CHEST: Reveals decreased breath sounds, but clear. HEART: Regular. ABDOMEN: Benign. IMPRESSION: 1. Anemia, improved with transfusion. 2. Polycythemia vera with macrocytic anemia. Normal platelet count with Hematology following. Hydroxyurea been on hold. 3. Heel ulcers, awaiting wound care opinion on the same. PLAN: At this point, we will continue present care. Check a CBC tomorrow and we will await wound care. Wound care suggestions for the heel ulcers as she is discharged. KYLE MCKOY MD DR: YOLANDA/brian JOB#: [id number] / [id number]
[2018-05-08 23:15] VITALS: BP 143/64
[2018-05-09 03:55] VITALS: BP 136/64
[2018-05-09 06:22] LABS: BASO % 0 % (0-3); EOS % 0 % (0-3); HEMATOCRIT 25.6 % (36.0-47.0); HEMOGLOBIN 8.7 g/dL (12.0-15.5); LYMPH # 0.2 x10^3/uL (1.0-4.8); LYMPH % 5 % (24-48); MEAN CORPUSCULAR HEMOGLOBIN 36 pg (25-35); MEAN CORPUSCULAR HGB CONC 34 g/dL (31-37); MEAN CORPUSCULAR VOLUME 104 fL (79-100); MONO # 0.3 x10^3/uL (0.0-1.1); MONO % 7 % (0-9); NEUT # 3.8 x10^3uL (1.8-7.7); NEUT % 88 % (31-73); PLATELET COUNT 256 x10^3/uL (140-400); RED BLOOD COUNT 2.46 x10^6/uL (3.50-5.40); RED CELL DISTRIBUTION WIDTH 28.3 % (11.5-14.5); WHITE BLOOD COUNT 4.3 x10^3/uL (4.0-11.0)
[2018-05-09 07:00] VITALS: BP 137/68
--- NOTE | 2018-05-09 09:28 | PDOC ---
PROGRESS NOTES Subjective Subjective HPI - f/u of anemia Objective Objective Vital Signs Date Time Temp Pulse Resp B/P (MAP) Pulse Ox O2 Delivery O2 Flow Rate FiO2 05/09/18 07:00 97.7 80 16 137/68 (91) 97 Room Air 97.7 05/08/18 08:26 2.0 Intake and Output 05/09/18 07:00 Intake Total 540 ml Balance 540 ml Intake Oral 540 ml # Voids 3 Physical Exam Heart: Normal S1, Normal S2 General: Alert, Oriented X3 Lungs: Clear to auscultation Neuro: Normal speech Psych/Mental Status: Mental status NL Assessment Assessment Assessment/Plan 1. P.Vera - hold hydrea due to anemia. f/u with Dr Salazar at . She has a long history of polycythemia vera and more recently has developed some myelofibrosis. From reviewing her NH medications she was taking Hydrea 500mg 2 tabs twice daily and this could give the picture of a macrocytic anemia. I have asked her nurse to HOLD hydrea. 2. Anemia with hgb 5.3 MCV 128 Hb now 8.7. She will need to follow up with Dr. Salazar as an outpatient for further management once she is discharged. The last evaluation from hematology was in July and she missed her follow up and never rescheduled. 2. Lung mass. She has a known lung mass and it has been documented in the past that she did not want further workup. Comment Review of Relevant I have reviewed the following items raudel (where applicable) has been applied. Labs Laboratory Tests Test 05/07/18 12:55 05/08/18 09:10 05/09/18 04:10 Haptoglobin 17 mg/dL (34-200) White Blood Count 4.3 x10^3/uL (4.0-11.0) 4.3 x10^3/uL (4.0-11.0) Red Blood Count 2.63 x10^6/uL (3.50-5.40) 2.46 x10^6/uL (3.50-5.40) Hemoglobin 9.4 g/dL (12.0-15.5) 8.7 g/dL (12.0-15.5) Hematocrit 27.4 % (36.0-47.0) 25.6 % (36.0-47.0) Mean Corpuscular Volume 104 fL (79-100) 104 fL (79-100) Mean Corpuscular Hemoglobin 36 pg (25-35) 36 pg (25-35) Mean Corpuscular Hemoglobin Concent 34 g/dL (31-37) 34 g/dL (31-37) Red Cell Distribution Width 28.5 % (11.5-14.5) 28.3 % (11.5-14.5) Platelet Count 254 x10^3/uL (140-400) 256 x10^3/uL (140-400) Neutrophils (%) (Auto) 91 % (31-73) 88 % (31-73) Lymphocytes (%) (Auto) 5 % (24-48) 5 % (24-48) Monocytes (%) (Auto) 4 % (0-9) 7 % (0-9) Eosinophils (%) (Auto) 0 % (0-3) 0 % (0-3) Basophils (%) (Auto) 0 % (0-3) 0 % (0-3) Neutrophils # (Auto) 3.9 x10^3uL (1.8-7.7) 3.8 x10^3uL (1.8-7.7) Lymphocytes # (Auto) 0.2 x10^3/uL (1.0-4.8) 0.2 x10^3/uL (1.0-4.8) Monocytes # (Auto) 0.2 x10^3/uL (0.0-1.1) 0.3 x10^3/uL (0.0-1.1) Eosinophils # (Auto) 0.0 x10^3/uL (0.0-0.7) 0.0 x10^3/uL (0.0-0.7) Basophils # (Auto) 0.0 x10^3/uL (0.0-0.2) 0.0 x10^3/uL (0.0-0.2) Laboratory Tests Test 05/09/18 04:10 White Blood Count 4.3 x10^3/uL (4.0-11.0) Red Blood Count 2.46 x10^6/uL (3.50-5.40) Hemoglobin 8.7 g/dL (12.0-15.5) Hematocrit 25.6 % (36.0-47.0) Mean Corpuscular Volume 104 fL (79-100) Mean Corpuscular Hemoglobin 36 pg (25-35) Mean Corpuscular Hemoglobin Concent 34 g/dL (31-37) Red Cell Distribution Width 28.3 % (11.5-14.5) Platelet Count 256 x10^3/uL (140-400) Neutrophils (%) (Auto) 88 % (31-73) Lymphocytes (%) (Auto) 5 % (24-48) Monocytes (%) (Auto) 7 % (0-9) Eosinophils (%) (Auto) 0 % (0-3) Basophils (%) (Auto) 0 % (0-3) Neutrophils # (Auto) 3.8 x10^3uL (1.8-7.7) Lymphocytes # (Auto) 0.2 x10^3/uL (1.0-4.8) Monocytes # (Auto) 0.3 x10^3/uL (0.0-1.1) Eosinophils # (Auto) 0.0 x10^3/uL (0.0-0.7) Basophils # (Auto) 0.0 x10^3/uL (0.0-0.2) Medications Current Medications Ondansetron HCl (Zofran) 4 mg PRN Q8HRS PRN IV NAUSEA/VOMITING; Start at 13:30; Stop 05/07/18 at 13:29; Status DC Acetaminophen (Tylenol) 650 mg PRN Q4HRS PRN PO FEVER Last administered on at 08:59; Start 05/06/18 at 13:30; Stop 05/07/18 at 13:29; Status DC Acetaminophen (Tylenol) 650 mg PRN Q6HRS PRN PO MILD PAIN Last administered on 05/08/18at 14:35; Start 05/07/18 at 20:15 Tramadol HCl (Ultram) 50 mg PRN Q6HRS PRN PO MODERATE PAIN Last administered on 05/08/18at 21:08; Start 05/07/18 at 20:15 Active Scripts Active Reported Zofran Odt (Ondansetron) 4 Mg Tab.rapdis 0.5 Tab SL PRN Q6HRS PRN Biofreeze (Menthol) 118 Ml Gel..ml. 118 Ml TP PRN QID PRN [place] Saline (Sodium Chloride) 50 Ml Drops 2 Drop NS TID Hydroxyurea 500 Mg Capsule 1,000 Mg PO BID Milk Of Magnesia (Magnesium Hydroxide) 400 Mg/5 Ml Oral.susp 30 Ml PO PRN DAILY PRN Maalox Maximum Strength Susp (Mag Hydrox/Al Hydrox/Simeth) 355 Ml Oral.susp 30 Ml PO PRN Q4HRS PRN Aquaphor Ointment (Mineral Oil/Hydrophil Petrolat) 396 Gm Oint...g. 396 Gm TP BID Furosemide 40 Mg Tablet 1 Tab PO DAILY Valium (Diazepam) 2 Mg Tablet 2 Mg PO PRN TID PRN Metoprolol Tartrate 25 Mg Tablet 1 Tab PO DAILY Myrbetriq (Mirabegron) 25 Mg Tab.er.24h 25 Mg PO DAILY Acetaminophen Ext.release (Acetaminophen) 650 Mg Tablet.er 650 Mg PO Q6HRS Ibuprofen 400 Mg Tablet 400 Mg PO QID PRN Tramadol Hcl 50 Mg Tablet 50 Mg PO PRN Q8HRS PRN Colace (Docusate Sodium) 100 Mg Capsule 1 Cap PO DAILYWLUN Glycolax (Polyethylene Glycol 3350) 119 Gm Powder 17 Gm PO DAILY Aspirin 81 Mg Tab.chew 1 Tab PO DAILY Vitamin B-12 (Cyanocobalamin (Vitamin B-12)) 1,000 Mcg Tablet 1 Tab PO DAILYWLUN Gabapentin 100 Mg Capsule 100 Mg PO QHS Prednisone 5 Mg Tablet 5 Mg PO DAILY Albuterol Sulfate Conc Neb Soln (Albuterol Sulfate) 2.5 Mg/0.5 Ml Vial.neb 2.5 Mg NEB PRN Q4HRS PRN Vitals/I & O Vital Sign - Last 24 Hours 05/08/18 05/08/18 05/08/18 05/08/18 09:35 11:00 15:00 19:20 Temp 98.2 98.2 98.2 98.2 98.2 98.2 Pulse 86 84 78 Resp 16 16 18 B/P (MAP) 112/54 (73) 128/61 (83) 133/59 (83) Pulse Ox 96 96 98 O2 Delivery Room Air Room Air Room Air Room Air 05/08/18 05/08/18 05/09/18 05/09/18 20:05 23:15 03:55 07:00 Temp 97.7 98.0 97.7 97.7 98.0 97.7 Pulse 72 78 80 Resp 18 18 16 B/P (MAP) 143/64 (90) 136/64 (88) 137/68 (91) Pulse Ox 97 98 97 O2 Delivery Room Air Room Air Room Air Room Air Intake and Output 05/08/18 05/08/18 05/09/18 15:00 23:00 07:00 Intake Total 240 ml 200 ml 100 ml Balance 240 ml 200 ml 100 ml Nutrition Consultation Dietary Evaluation: Recommendations by RD: Increase Calorie Intake, Protein supplementation Comments: ensure bid REC mvi and vit c for wound healing per protocal Expected Outcomes/Goals: to meet > 75% est nutr needs Malnutrition Findings: Body Fat Depletion (Non Severe: Mild Depletion Weight Status: Underweight CONNOR MONTEZ MD May 09, 2018 09:28
[2018-05-09 11:00] VITALS: BP 115/62
--- NOTE | 2018-05-09 13:36 | DS ---
DATE OF DISCHARGE: 05/09/2018 PRIMARY DIAGNOSIS: Microcytic anemia, symptomatic with hemoglobin of 5.2 on admission. ADDITIONAL DIAGNOSES: Polycythemia vera, chronic obstructive pulmonary disease and right heel ulcer x 2. CHIEF COMPLAINT AND HISTORY OF PRESENT ILLNESS: This 88-year-old white female was admitted with symptomatic anemia for transfusion and Hematology evaluation. SUMMARY OF STAY: The patient was admitted, transfused. Hemoglobin came up in the 8.7 range and remained there. Hematology saw her in consultation and recommended that her hydroxyurea be held for the time being and that she follow up with Dr. Rudd at the . White count was also depressed on admission at 2.7 and platelet count was down in the normal range at 289,000. She had an MCV of 128. She was also noted to have some myelofibrosis. It was felt that macrocytic anemia could be from the Hydrea 500 mg 2 tablets twice a day. The patient was seen by wound care with wound care orders for right heel ulcers instituted and it was felt that she could be dismissed with further outpatient followup back to her assisted living status. DISPOSITION: The patient is discharged back to assisted living. Regular diet. Activity as tolerated. We will follow her there. DISCHARGE MEDICATIONS: Will be those of her regular admissions minus the hydroxyurea. KYLE MCKOY MD DR: YOLANDA/brian JOB#: [id number] / [id number]
== END 2018-05-09 12:52 | disposition home or self-care (01) | DRG 812 ==
LOC: ER 11:51 → 6 SOUTH 13:15
PROVIDERS: ADMIT Family Medicine; ATTEND Family Medicine
PROC: 30233N1 Transfusion of Nonautologous Red Blood Cells into Peripheral Vein, Percutaneous Approach (ICD-10-PCS; principal; 2018-05-06)
DX: D53.9 Nutritional anemia, unspecified (principal); L97.412 Non-pressure chronic ulcer of right heel and midfoot with fat layer exposed; D72.819 Decreased white blood cell count, unspecified; K21.9 Gastro-esophageal reflux disease without esophagitis; F41.9 Anxiety disorder, unspecified; J44.9 Chronic obstructive pulmonary disease, unspecified; I10 Essential (primary) hypertension; D45 Polycythemia vera; F32.9 Major depressive disorder, single episode, unspecified; Z90.710 Acquired absence of both cervix and uterus; Z90.11 Acquired absence of right breast and nipple; Z90.49 Acquired absence of other specified parts of digestive tract; Z88.6 Allergy status to analgesic agent; Z88.1 Allergy status to other antibiotic agents; Z88.2 Allergy status to sulfonamides; Z88.8 Allergy status to other drugs, medicaments and biological substances
CPT/HCPCS: 36415; 80048; 80076; 82274; 82607; 82728; 82746; 83010; 83540; 83550; 83615; 84443; 85007; 85025; 85045; 85610; 85730; 86850; 86900; 86901; 86920; 87641; P9016; 99285-25

== ENCOUNTER → 2018-06-05 | Outpatient (CLI) | payer MEDICARE ==
[2018-05-09 11:00] VITALS: BP 115/62
[~2018-06-05] MED LIST changes: +ACET-1574 PO; +CYAN10005 PO; +DIAZ2TAB PO; +DOCU-109 PO; +FURO40TA4 PO; +GABA-585 PO; +IBUP-1027 PO; +MAG355OR12 PO; +MAGN400O7 PO; +MENT118G TP; +METO25TA4 PO; +MINE396O2 TP; +MIRA25TA PO; +ONDA4TAB10 SL; +POLY119P19 PO; +SODI50DR NS; +TRAM50TA PO
--- NOTE | 2018-06-06 11:09 | PATHOLOGY ---
[facility] Accession Number: [id number] . 01 Material submitted: . RIGHT HEAL WOUND . 01 Clinical history: . Right heel wound . 02 Diagnosis: Fibroadipose tissue, right heel wound biopsy: - Ulcer with intense acute inflammation. [facility]/06/06/2018 . 02 Comment: Sections of the right heel wound biopsy reveal a segment of fibroadipose tissue showing an apparent ulcer base with intense acute inflammation. There is no epidermis present. There is fibrinoid necrosis of small vessels within the ulcer base. There is no evidence of malignancy. (JPM:[facility] 06/06/2018) . 02 Electronically signed: . He Zamorano MD, Pathologist NPI- [id number] . 01 Gross description: . Received in formalin labeled "Jagruti Cuevas, right heel biopsy," is a punch biopsy measuring 0.4 x 0.3 x 0.4 cm in maximum dimension. The surface is alexander and displays no grossly identifiable lesion. The margin is inked and the specimen is bisected and entirely submitted in cassette A1. ([facility]; 06/05/2018) TOB/TOB . 02 Pathologist provided ICD-10: L89.613 . 02 CPT . 073028 Specimen Comment: A courtesy copy of this report has been sent to Specimen Comment: [phone], . Specimen Comment: Report sent to / DR MCKOY Specimen Comment: A duplicate report has been generated due to demographic updates. Performed at: 01 [facility] [address], [place], [place] [id number] MD Farhad Shook MD Phone: [phone] Performed at: 02 [facility] [address], [place] [id number] MD He Zamorano MD Phone: [phone]
== END | disposition home or self-care (01) ==
LOC: PMGWOUND 11:33
PROVIDERS: ATTEND Emergency Medicine Undersea and Hyperbaric Medicine
DX: I87.311 Chronic venous hypertension (idiopathic) with ulcer of right lower extremity (principal); L89.613 Pressure ulcer of right heel, stage 3; L97.221 Non-pressure chronic ulcer of left calf limited to breakdown of skin; F32.9 Major depressive disorder, single episode, unspecified; H91.90 Unspecified hearing loss, unspecified ear; G43.909 Migraine, unspecified, not intractable, without status migrainosus; K21.9 Gastro-esophageal reflux disease without esophagitis; M81.0 Age-related osteoporosis without current pathological fracture; Z87.891 Personal history of nicotine dependence; Z85.3 Personal history of malignant neoplasm of breast
CPT/HCPCS: 11100; 87071; 87075; 88304; 97597

== ENCOUNTER 2018-07-01 19:49 | Inpatient (IN) | payer MEDICARE ==
[~2018-07-01] VITALS: Ht 157.5 cm; Wt 62.3 kg
[2018-07-01] MEDS ORDERED: ONDANSETRON PF 4 MG/2 ML VIAL. IV ONE (20:15)
[2018-07-01] MEDS ORDERED: IV NORMAL SALINE 1000ML BAG 1,000 ML IV ONE ×2 (20:15→21:30)
[2018-07-01 20:50] LABS: BASO # 0.1 x10^3/uL (0.0-0.2); BASO % 1 % (0-3); EOS # 0.1 x10^3/uL (0.0-0.7); EOS % 0 % (0-3); HEMATOCRIT 35.5 % (36.0-47.0); HEMOGLOBIN 11.8 g/dL (12.0-15.5); LYMPH # 0.3 x10^3/uL (1.0-4.8); LYMPH % 1 % (24-48); MEAN CORPUSCULAR HEMOGLOBIN 34 pg (25-35); MEAN CORPUSCULAR HGB CONC 33 g/dL (31-37); MEAN CORPUSCULAR VOLUME 103 fL (79-100); MONO # 0.6 x10^3/uL (0.0-1.1); MONO % 2 % (0-9); NEUT # 23.8 x10^3uL (1.8-7.7); NEUT % 96 % (31-73); RED BLOOD COUNT 3.45 x10^6/uL (3.50-5.40); RED CELL DISTRIBUTION WIDTH 23.2 % (11.5-14.5); WHITE BLOOD COUNT 24.9 x10^3/uL (4.0-11.0)
[2018-07-01 20:54] LABS: PLATELET COUNT 982 x10^3/uL (140-400)
[2018-07-01 21:00] LABS: CALCIUM 8.8 mg/dL (8.5-10.1); CREATININE 0.7 mg/dL (0.6-1.0); GFR 79.2; POTASSIUM 4.6 mmol/L (3.5-5.1)
[2018-07-01 21:06] LABS: ALBUMIN 3.1 g/dL (3.4-5.0); ALBUMIN/GLOBULIN RATIO 0.9 (1.0-1.7); TOTAL BILIRUBIN 0.6 mg/dL (0.2-1.0); TOTAL PROTEIN 6.4 g/dL (6.4-8.2)
[2018-07-01 21:07] LABS: % BANDS 2 % (0-9); % LYMPHS 1 % (24-48); % SEGS 97 % (35-66); ANISOCYTOSIS MOD; PLT ESTIMATE INCREASED (ADEQUATE); POIKILOCYTOSIS SLIGHT; POLYCHROMASIA SLIGHT
[2018-07-01 21:08] LABS: OVALOCYTES FEW
[2018-07-01 21:08] LABS: BILIRUBIN,URINE SMALL (NEG); CLARITY,URINE CLEAR; COLOR,URINE YELLOW; NITRITE,URINE NEGATIVE (NEG); PROTEIN,URINE NEGATIVE (NEG-TRACE); UROBILINOGEN,URINE 0.2 mg/dL (0.2 mg/dL)
[2018-07-01 21:14] LABS: BACTERIA,URINE 0 /HPF (0-FEW); RBC,URINE 0 /HPF (0-2); SQUAMOUS EPITHELIAL CELL,UR OCC /LPF
[2018-07-01] MEDS ORDERED: CONTRAST GIVEN. MC PRN (21:45)
[2018-07-01 21:49] LABS: BASE EXCESS ABG 0 mmol/L (-3-3); HCO3 ABG 24 mmol/L (21-28); PCO2 ABG 37 mmHg (35-46); PO2 ABG 78 mmHg (65-108); SAT O2 ABG 95 % (92-99)
[2018-07-01 21:59] LABS: FIO2 ABG 28
[2018-07-01] MEDS ORDERED: IOHEXOL 300 MG/ML 100ML VIAL. IV ONE (22:00)
--- NOTE | 2018-07-01 22:37 | RAD ---
CT abdomen and pelvis with contrast. HISTORY: Right lower quadrant pain CT scan of the abdomen and pelvis was done using 75 mL Omnipaque 300 contrast. There is peribronchial thickening in both lower lobes and in the lingula. There is an acute infiltrate in the right lower lobe suggesting pneumonia. A splenic lesion is not identified. There is a cyst in the liver. No other liver lesion is noted. There is no calcified gallstone or gallbladder wall thickening. There is no mass or hydronephrosis in the left kidney. There is a small left renal cyst. There is right hydronephrosis or a dilated renal pelvis. Bladder is distended. There are fluid-filled bowel loops without a definite obstruction. Appendix is not identified. Lack of oral contrast limits evaluation for the appendix has there is no fat the bowel loops. There is scoliosis and degenerative change in the lumbar spine. IMPRESSION: 1. Right hydronephrosis. 2. Distended bladder. 3. Nonspecific bowel pattern without definite obstruction. 4. The appendix is not identified. 5. Right lower lobe pneumonia. Electronically signed by: Cheng Elder MD (07/01/2018 10:33 PM) [facility]
--- NOTE | 2018-07-01 22:58 | PHYS DOC ---
Past Medical History Past Medical History: Anxiety, Bronchitis, Cancer, COPD, Depression, GERD, Hypertension, Migraines, Pneumonia, UTI, Other Additional Past Medical Histor: ULCER; BRONCHIECTASIS; POLYCYTHEMIA VERA, DUODENAL & BREAST CA Past Surgical History: Hysterectomy Additional Past Surgical Histo: RIGHT MASTECTOMY; COLON RESECTION Alcohol Use: None Drug Use: None Adult General Chief Complaint Chief Complaint: NAUSEA/VOMITING/DIARRHA HPI HPI Patient is a 88 year old female with history of chronic bronchitis, bronchiectasis, presents with generalized weakness, malaise, chronic productive cough, and nausea vomiting. Nausea and vomiting started 2 days ago. Patient also reports right upper quadrant/right sided chest wall pain. Denies fever, chills, sweats. Denies urinary frequency urgency or burning. She requires occasional supplemental oxygen at home. [] Review of Systems Review of Systems Review symptoms as per history of present illness. All other review symptoms are negative. All other systems were reviewed and found to be within normal limits, except as documented in this note. Current Medications Current Medications Current Medications Medications (Trade) Dose Ordered Sig/Gee Start Time Stop Time Status Last Admin Dose Admin Azithromycin 250 ml @ 250 mls/hr 1X ONCE 07/01/18 23:30 07/02/18 00:29 Ceftriaxone Sodium (Rocephin) 1 gm 1X ONCE 07/01/18 23:00 07/01/18 23:01 Info (CONTRAST GIVEN -- Rx MONITORING) 1 each PRN DAILY PRN 07/01/18 21:45 07/03/18 21:44 Iohexol (Omnipaque 300 Mg/ml) 75 ml 1X ONCE 07/01/18 22:00 07/01/18 22:01 DC 07/01/18 22:14 75 ML Ondansetron HCl (Zofran) 4 mg 1X ONCE 07/01/18 20:15 07/01/18 20:16 DC 07/01/18 20:16 4 MG Sodium Chloride 1,000 ml @ 1,000 mls/hr 1X ONCE 07/01/18 21:30 07/01/18 22:29 DC Allergies Allergies Allergies Coded Allergies Type Severity Reaction Last Updated Verified Sulfa (Sulfonamide Antibiotics) Allergy Intermediate Rash 05/06/18 Yes codeine Allergy Intermediate 05/06/18 Yes colloidal oatmeal Allergy Intermediate 05/06/18 Yes cyclobenzaprine Allergy Intermediate 05/06/18 Yes dimethicone Allergy Intermediate 05/06/18 Yes fentanyl Allergy Intermediate Shortness of Air 05/06/18 Yes menthol Allergy Intermediate 05/06/18 Yes morphine Allergy Intermediate 05/06/18 Yes moxifloxacin Allergy Intermediate 05/06/18 Yes soap Allergy Intermediate 05/06/18 Yes Physical Exam Physical Exam Constitutional: Well developed, well nourished, no acute distress, non-toxic appearance. [] HENT: Normocephalic, atraumatic, bilateral external ears normal, oropharynx moist, no oral exudates, nose normal. [] Eyes: PERRLA, EOMI, conjunctiva normal, no discharge. [] Neck: Normal range of motion, no tenderness, supple, no stridor. [] Cardiovascular:Heart rate regular rhythm, no murmur [] Lungs & Thorax: Patient's nonlabored, coarse rhonchi bilaterally, right greater than left.[] Abdomen: Bowel sounds normal, soft, and upper quadrant pain, chest wall pain tenderness.. [] Skin: Warm, dry, no erythema, no rash. [] Back: No tenderness, no CVA tenderness. [] Extremities: No tenderness, no cyanosis, no clubbing, ROM intact, no edema. [] Neurologic: Alert and oriented X 3, normal motor function, normal sensory function, no focal deficits noted. [] Psychologic: Affect normal, judgement normal, mood normal. [] Current Patient Data Vital Signs Vital Signs Date Time Temp Pulse Resp B/P (MAP) Pulse Ox O2 Delivery O2 Flow Rate FiO2 07/01/18 21:55 98 16 95/50 (65) 96 Nasal Cannula 2.0 07/01/18 19:50 98.0 98.0 Lab Values Laboratory Tests Test 07/01/18 20:35 07/01/18 21:01 07/01/18 21:47 White Blood Count 24.9 x10^3/uL (4.0-11.0) H Red Blood Count 3.45 x10^6/uL (3.50-5.40) L Hemoglobin 11.8 g/dL (12.0-15.5) L Hematocrit 35.5 % (36.0-47.0) L Mean Corpuscular Volume 103 fL (79-100) H Mean Corpuscular Hemoglobin 34 pg (25-35) Mean Corpuscular Hemoglobin Concent 33 g/dL (31-37) Red Cell Distribution Width 23.2 % (11.5-14.5) H Platelet Count 982 x10^3/uL (140-400) *H Neutrophils (%) (Auto) 96 % (31-73) H Lymphocytes (%) (Auto) 1 % (24-48) L Monocytes (%) (Auto) 2 % (0-9) Eosinophils (%) (Auto) 0 % (0-3) Basophils (%) (Auto) 1 % (0-3) Neutrophils # (Auto) 23.8 x10^3uL (1.8-7.7) H Lymphocytes # (Auto) 0.3 x10^3/uL (1.0-4.8) L Monocytes # (Auto) 0.6 x10^3/uL (0.0-1.1) Eosinophils # (Auto) 0.1 x10^3/uL (0.0-0.7) Basophils # (Auto) 0.1 x10^3/uL (0.0-0.2) Segmented Neutrophils % 97 % (35-66) H Band Neutrophils % 2 % (0-9) Lymphocytes % 1 % (24-48) L Platelet Estimate Increased (ADEQUATE) Large Platelets Present Polychromasia Slight Poikilocytosis Slight Anisocytosis Mod Ovalocytes Few Sodium Level 137 mmol/L (136-145) Potassium Level 4.6 mmol/L (3.5-5.1) Chloride Level 102 mmol/L (98-107) Carbon Dioxide Level 26 mmol/L (21-32) Anion Gap 9 (6-14) Blood Urea Nitrogen 20 mg/dL (7-20) Creatinine 0.7 mg/dL (0.6-1.0) Estimated GFR (Cockcroft-Gault) 79.2 BUN/Creatinine Ratio 29 (6-20) H Glucose Level 108 mg/dL (70-99) H Lactic Acid Level 1.4 mmol/L (0.4-2.0) Calcium Level 8.8 mg/dL (8.5-10.1) Total Bilirubin 0.6 mg/dL (0.2-1.0) Aspartate Amino Transferase (AST) 15 U/L (15-37) Alanine Aminotransferase (ALT) 11 U/L (14-59) L Alkaline Phosphatase 89 U/L (46-116) Troponin I Quantitative < 0.017 ng/mL (0.000-0.055) Total Protein 6.4 g/dL (6.4-8.2) Albumin 3.1 g/dL (3.4-5.0) L Albumin/Globulin Ratio 0.9 (1.0-1.7) L Urine Collection Type U cath Urine Color Yellow Urine Clarity Clear Urine pH 6.0 Urine Specific [place] 1.020 Urine Protein Negative mg/dL (NEG-TRACE) Urine Glucose (UA) Negative mg/dL (NEG) Urine Ketones (Stick) Trace mg/dL (NEG) Urine Blood Negative (NEG) Urine Nitrite Negative (NEG) Urine Bilirubin Small (NEG) Urine Urobilinogen Dipstick 0.2 mg/dL (0.2 mg/dL) Urine Leukocyte Esterase Small (NEG) Urine RBC 0 /HPF (0-2) Urine WBC 5-10 /HPF (0-4) Urine Squamous Epithelial Cells Occ /LPF Urine Bacteria 0 /HPF (0-FEW) Urine Mucus Slight /LPF O2 Saturation 95 % (92-99) Arterial Blood pH 7.42 (7.35-7.45) Arterial Blood pCO2 at Patient Temp 37 mmHg (35-46) Arterial Blood pO2 at Patient Temp 78 mmHg (65-108) Arterial Blood HCO3 24 mmol/L (21-28) Arterial Blood Base Excess 0 mmol/L (-3-3) FiO2 28 Laboratory Tests 07/01/18 20:35 Laboratory Tests 07/01/18 20:35 EKG EKG [EKG: Reviewed] Radiology/Procedures Radiology/Procedures [CT abd/pelvis: Right hydronephrosis, distended bladder, nonspecific bowel last pattern without definite obstruction. Appendix is not identified. Right lower lobe infiltrate] Course & Med Decision Making Course & Med Decision Making Pertinent Labs and Imaging studies reviewed. (See chart for details) [IV fluids, antibiotics given. Blood pressure improved. Patient with polycythemia vera. Infiltrate, no pneumonia noted on chest x-ray/CT abdomen and pelvis. IV antibiotics given. Vital signs stable. Dr. Mckoy to admit.] Leilani Disclaimer Leilani Disclaimer This electronic medical record was generated, in whole or in part, using a voice recognition dictation system. Departure Departure Impression: Primary Impression: Pneumonia Additional Impression: Sepsis Disposition: 09 ADMITTED INPATIENT Admitting Physician: Other Condition: STABLE Referrals: KYLE MCKOY MD (PCP) Problem Qualifiers REMY FARIAS DO Jul 01, 2018 22:58
[2018-07-01] MEDS ORDERED: cefTRIAXone IV Push 1 GM VIAL. IVP ONE (23:00)
[2018-07-01] MEDS ORDERED: AZITHRMYCN 500MG IVPB FOR OMNI 250 ML IV ONE (23:30)
--- NOTE | 2018-07-01 23:36 | RAD ---
AP portable chest 07/01/2018. Reason for exam: Sepsis and pneumonia. Comparison is made with a study of 08/29/2017. An opacity is again shown toward the right apex and does not appear significantly changed, allowing for difference in projection. Extensive abnormal markings are again seen through the chest and also appears similar. No new infiltrate or effusion is seen. The heart may be mildly enlarged, but appears unchanged. IMPRESSION: Chronic findings. No definite acute abnormality. Electronically signed by: Jason Silver Jr., MD (07/01/2018 11:31 PM) [facility]
[2018-07-02] VITALS (7 sets, daily range): BP systolic 100–121; BP diastolic 50–72
[2018-07-02] MEDS ORDERED: TRAM50TA PO (01:57)
[2018-07-02] MEDS: traMADol 50 MG TABLET PO PRN (02:34)
[2018-07-02] MEDS ORDERED: CYAN10005 PO (03:05)
[2018-07-02] MEDS ORDERED: POLY17PO29 PO (03:05)
[2018-07-02] MEDS ORDERED: METO25TA4 PO (03:05)
[2018-07-02] MEDS ORDERED: MULT-245 PO (03:05)
[2018-07-02] MEDS ORDERED: MINE50OI TP (03:05)
[2018-07-02] MEDS ORDERED: MENT118G TP (03:05)
[2018-07-02] MEDS ORDERED: IPRA3AMP29 NEB (03:05)
[2018-07-02] MEDS: ACETAMINOPHEN 325 MG TABLET. PO SCH ×4 (05:50→18:40)
--- NOTE | 2018-07-02 08:02 | EKG ---
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
--- NOTE | 2018-07-02 09:00 | PDOC1 ---
H & P. HPI: Ms. Cuevas is an 88-year-old female who is a patient of Dr. Alonzo with chronic bronchitis, bronchiectasis, polycythemia vera and some myelofibrosis, is followed at [facility] for this, as well as history of a lung mass on CT which she did not want further evaluation for. She presents to the emergency room yesterday for increasing productive cough, weakness, malaise, nausea and vomiting. Symptoms started approximately 2 days ago. She also reports right upper quadrant/right sided chest pain. She notes subjective fever at home. Denies chills, sweats. She requires occasional supplemental oxygen at home. She lives alone and ambulates well with a walker. ROS: Constitutional: Admits subjective fever, fatigue, denies chills HEENT: Denies sore throat, vision changes Cardio: Admits right sided chest pain, dyspnea with exertion at baseline; denies syncope, palpitations, edema Pulmonary: Admits shortness of breath, productive cough somewhat increased from baseline; denies wheezing GI: Denies nausea, vomiting, diarrhea, constipation : Denies dysuria, frequency, urgency, incontinence Skin: Denies new lesions Neuro: Denies weakness, paresthesias PMH: As above FAMILY HX: Unremarkable SOCIAL HX: Former smoker, quit ~50 years ago, smoked for a very short time. Denies alcohol , drug use. MEDS: Reviewed and reconciled ALLERGIES: Reviewed PE: Alert, oriented, no acute distress EOMI, sclera non-icteric Neck supple RRR, no murmur Crackles appreciated throughout with intermittent coarse expiratory Soft, NT, ND, normal bowel sounds No edema, cyanosis. Normal capillary refill. Calm, cooperative, mood/affect within normal limits ASSESSMENT & PLAN: Right lower lobe pneumonia History of chronic and The cysts/bronchitis Polycythemia vera Myelofibrosis History of lung mass on CT for which she did not want any further workup or treatment Rocephin and azithromycin Pulmonology consult Sputum culture Follow bld cxs LONNY WALKER MD Jul 02, 2018 09:00
[2018-07-02] MEDS: IBUPROFEN 400 MG TABLET. PO SCH ×4 (09:21→20:15)
[2018-07-02] MEDS ORDERED: ALBUTEROL SULFATE 2.5 MG/3 ML NEBU. NEB PRN ×2 (09:30→10:00)
[2018-07-02] MEDS ORDERED: ONDANSETRON PF 4 MG/2 ML VIAL. IV PRN (09:30)
[2018-07-02] MEDS: cefTRIAXone IV Push 1 GM VIAL. IVP SCH (09:38)
[2018-07-02] MEDS ORDERED: diazePAM 2 MG TABLET PO PRN (09:45)
[2018-07-02] MEDS ORDERED: predniSONE 5 MG TABLET PO SCH (10:00)
[2018-07-02] MEDS ORDERED: AZITHROMYCIN 250 MG in IV NORMAL SALINE 250ML 250 ML IV SCH (10:00)
[2018-07-02] MEDS: ASPIRIN CHEWABLE 81 MG TABLET. PO SCH (10:02)
[2018-07-02] MEDS: FUROSEMIDE 40 MG TABLET. PO SCH ×2 (10:02→18:39)
[2018-07-02] MEDS: METOPROLOL TART IMMED RELEASE 25 MG TABLET. PO SCH ×2 (10:05→18:40)
[2018-07-02] MEDS: HYDROXYUREA 500 MG CAPSULE PO SCH ×2 (10:26→18:42)
--- NOTE | 2018-07-02 11:09 | PDOC ---
PULMONARY PROGRESS NOTES Vitals Vital Signs Date Time Temp Pulse Resp B/P (MAP) Pulse Ox O2 Delivery O2 Flow Rate FiO2 07/02/18 10:05 88 112/54 07/02/18 08:00 Nasal Cannula 2.0 07/02/18 07:00 98.6 18 95 98.6 General: Alert, Oriented X4, No acute distress HEENT: Other Lungs: Clear Cardiovascular: S1, S2 Abdomen: Soft, Non-tender Extremities: No Edema Labs Laboratory Tests Test 07/01/18 20:35 07/01/18 21:01 07/01/18 21:47 White Blood Count 24.9 x10^3/uL (4.0-11.0) Red Blood Count 3.45 x10^6/uL (3.50-5.40) Hemoglobin 11.8 g/dL (12.0-15.5) Hematocrit 35.5 % (36.0-47.0) Mean Corpuscular Volume 103 fL (79-100) Mean Corpuscular Hemoglobin 34 pg (25-35) Mean Corpuscular Hemoglobin Concent 33 g/dL (31-37) Red Cell Distribution Width 23.2 % (11.5-14.5) Platelet Count 982 x10^3/uL (140-400) Neutrophils (%) (Auto) 96 % (31-73) Lymphocytes (%) (Auto) 1 % (24-48) Monocytes (%) (Auto) 2 % (0-9) Eosinophils (%) (Auto) 0 % (0-3) Basophils (%) (Auto) 1 % (0-3) Neutrophils # (Auto) 23.8 x10^3uL (1.8-7.7) Lymphocytes # (Auto) 0.3 x10^3/uL (1.0-4.8) Monocytes # (Auto) 0.6 x10^3/uL (0.0-1.1) Eosinophils # (Auto) 0.1 x10^3/uL (0.0-0.7) Basophils # (Auto) 0.1 x10^3/uL (0.0-0.2) Segmented Neutrophils % 97 % (35-66) Band Neutrophils % 2 % (0-9) Lymphocytes % 1 % (24-48) Platelet Estimate Increased (ADEQUATE) Large Platelets Present Polychromasia Slight Poikilocytosis Slight Anisocytosis Mod Ovalocytes Few Sodium Level 137 mmol/L (136-145) Potassium Level 4.6 mmol/L (3.5-5.1) Chloride Level 102 mmol/L (98-107) Carbon Dioxide Level 26 mmol/L (21-32) Anion Gap 9 (6-14) Blood Urea Nitrogen 20 mg/dL (7-20) Creatinine 0.7 mg/dL (0.6-1.0) Estimated GFR (Cockcroft-Gault) 79.2 BUN/Creatinine Ratio 29 (6-20) Glucose Level 108 mg/dL (70-99) Lactic Acid Level 1.4 mmol/L (0.4-2.0) Calcium Level 8.8 mg/dL (8.5-10.1) Total Bilirubin 0.6 mg/dL (0.2-1.0) Aspartate Amino Transf (AST/SGOT) 15 U/L (15-37) Alanine Aminotransferase (ALT/SGPT) 11 U/L (14-59) Alkaline Phosphatase 89 U/L (46-116) Troponin I Quantitative < 0.017 ng/mL (0.000-0.055) Total Protein 6.4 g/dL (6.4-8.2) Albumin 3.1 g/dL (3.4-5.0) Albumin/Globulin Ratio 0.9 (1.0-1.7) Urine Collection Type U cath Urine Color Yellow Urine Clarity Clear Urine pH 6.0 Urine Specific [place] 1.020 Urine Protein Negative mg/dL (NEG-TRACE) Urine Glucose (UA) Negative mg/dL (NEG) Urine Ketones (Stick) Trace mg/dL (NEG) Urine Blood Negative (NEG) Urine Nitrite Negative (NEG) Urine Bilirubin Small (NEG) Urine Urobilinogen Dipstick 0.2 mg/dL (0.2 mg/dL) Urine Leukocyte Esterase Small (NEG) Urine RBC 0 /HPF (0-2) Urine WBC 5-10 /HPF (0-4) Urine Squamous Epithelial Cells Occ /LPF Urine Bacteria 0 /HPF (0-FEW) Urine Mucus Slight /LPF O2 Saturation 95 % (92-99) Arterial Blood pH 7.42 (7.35-7.45) Arterial Blood pCO2 at Patient Temp 37 mmHg (35-46) Arterial Blood pO2 at Patient Temp 78 mmHg (65-108) Arterial Blood HCO3 24 mmol/L (21-28) Arterial Blood Base Excess 0 mmol/L (-3-3) FiO2 28 Laboratory Tests Test 07/01/18 20:35 07/01/18 21:01 07/01/18 21:47 White Blood Count 24.9 x10^3/uL (4.0-11.0) Red Blood Count 3.45 x10^6/uL (3.50-5.40) Hemoglobin 11.8 g/dL (12.0-15.5) Hematocrit 35.5 % (36.0-47.0) Mean Corpuscular Volume 103 fL (79-100) Mean Corpuscular Hemoglobin 34 pg (25-35) Mean Corpuscular Hemoglobin Concent 33 g/dL (31-37) Red Cell Distribution Width 23.2 % (11.5-14.5) Platelet Count 982 x10^3/uL (140-400) Neutrophils (%) (Auto) 96 % (31-73) Lymphocytes (%) (Auto) 1 % (24-48) Monocytes (%) (Auto) 2 % (0-9) Eosinophils (%) (Auto) 0 % (0-3) Basophils (%) (Auto) 1 % (0-3) Neutrophils # (Auto) 23.8 x10^3uL (1.8-7.7) Lymphocytes # (Auto) 0.3 x10^3/uL (1.0-4.8) Monocytes # (Auto) 0.6 x10^3/uL (0.0-1.1) Eosinophils # (Auto) 0.1 x10^3/uL (0.0-0.7) Basophils # (Auto) 0.1 x10^3/uL (0.0-0.2) Segmented Neutrophils % 97 % (35-66) Band Neutrophils % 2 % (0-9) Lymphocytes % 1 % (24-48) Platelet Estimate Increased (ADEQUATE) Large Platelets Present Polychromasia Slight Poikilocytosis Slight Anisocytosis Mod Ovalocytes Few Sodium Level 137 mmol/L (136-145) Potassium Level 4.6 mmol/L (3.5-5.1) Chloride Level 102 mmol/L (98-107) Carbon Dioxide Level 26 mmol/L (21-32) Anion Gap 9 (6-14) Blood Urea Nitrogen 20 mg/dL (7-20) Creatinine 0.7 mg/dL (0.6-1.0) Estimated GFR (Cockcroft-Gault) 79.2 BUN/Creatinine Ratio 29 (6-20) Glucose Level 108 mg/dL (70-99) Lactic Acid Level 1.4 mmol/L (0.4-2.0) Calcium Level 8.8 mg/dL (8.5-10.1) Total Bilirubin 0.6 mg/dL (0.2-1.0) Aspartate Amino Transf (AST/SGOT) 15 U/L (15-37) Alanine Aminotransferase (ALT/SGPT) 11 U/L (14-59) Alkaline Phosphatase 89 U/L (46-116) Troponin I Quantitative < 0.017 ng/mL (0.000-0.055) Total Protein 6.4 g/dL (6.4-8.2) Albumin 3.1 g/dL (3.4-5.0) Albumin/Globulin Ratio 0.9 (1.0-1.7) Urine Collection Type U cath Urine Color Yellow Urine Clarity Clear Urine pH 6.0 Urine Specific [place] 1.020 Urine Protein Negative mg/dL (NEG-TRACE) Urine Glucose (UA) Negative mg/dL (NEG) Urine Ketones (Stick) Trace mg/dL (NEG) Urine Blood Negative (NEG) Urine Nitrite Negative (NEG) Urine Bilirubin Small (NEG) Urine Urobilinogen Dipstick 0.2 mg/dL (0.2 mg/dL) Urine Leukocyte Esterase Small (NEG) Urine RBC 0 /HPF (0-2) Urine WBC 5-10 /HPF (0-4) Urine Squamous Epithelial Cells Occ /LPF Urine Bacteria 0 /HPF (0-FEW) Urine Mucus Slight /LPF O2 Saturation 95 % (92-99) Arterial Blood pH 7.42 (7.35-7.45) Arterial Blood pCO2 at Patient Temp 37 mmHg (35-46) Arterial Blood pO2 at Patient Temp 78 mmHg (65-108) Arterial Blood HCO3 24 mmol/L (21-28) Arterial Blood Base Excess 0 mmol/L (-3-3) FiO2 28 Medications Active Scripts Medications Dose Route/Sig Max Daily Dose Days Date Category Multi Vitamin Daily (Multivitamin) 1 Each Tablet 1 Tab PO DAILY 07/02/18 Reported Miralax (Polyethylene Glycol 3350) Unknown Strength Powd.pack Unknown Dose PO BID 07/02/18 Reported Metoprolol Tartrate 25 Mg Tablet 1 Tab PO DAILY 07/02/18 Reported Duoneb 0.5-3(2.5) Mg/3 Ml (Albuterol/Ipratropium) 3 Ml Ampul.neb 3 Ml NEB Q6HRS PRN 07/02/18 Reported Vitamin B-12 (Cyanocobalamin (Vitamin B-12)) 1,000 Mcg Tablet 1 Tab PO DAILY 07/02/18 Reported Tramadol Hcl 50 Mg Tablet 100 Mg PO Q6HRS PRN 07/02/18 Reported Zofran Odt (Ondansetron) 4 Mg Tab.rapdis 0.5 Tab SL PRN Q6HRS PRN 05/06/18 Reported Biofreeze (Menthol) 118 Ml Gel..ml. 118 Ml TP PRN QID PRN 05/06/18 Reported [place] Saline (Sodium Chloride) 50 Ml Drops 1 Tu NS TID PRN 05/06/18 Reported Hydroxyurea 500 Mg Capsule 500 Mg PO BID 05/06/18 Reported Milk Of Magnesia (Magnesium Hydroxide) 400 Mg/5 Ml Oral.susp 30 Ml PO PRN DAILY PRN 05/06/18 Reported Maalox Maximum Strength Susp (Mag Hydrox/Al Hydrox/Simeth) 355 Ml Oral.susp 30 Ml PO PRN Q4HRS PRN 05/06/18 Reported Aquaphor Ointment (Mineral Oil/Hydrophil Petrolat) 396 Gm Oint...g. 396 Gm TP BID 05/06/18 Reported Furosemide 40 Mg Tablet 1 Tab PO DAILY 05/06/18 Reported Valium (Diazepam) 2 Mg Tablet 2 Mg PO PRN TID PRN 05/06/18 Reported Myrbetriq (Mirabegron) 25 Mg Tab.er.24h 25 Mg PO DAILY 05/06/18 Reported Acetaminophen Ext.release (Acetaminophen) 650 Mg Tablet.er 650 Mg PO Q6HRS 05/06/18 Reported Ibuprofen 400 Mg Tablet 400 Mg PO QID 05/06/18 Reported Colace (Docusate Sodium) 100 Mg Capsule 1 Cap PO DAILYWLUN 05/06/18 Reported Aspirin 81 Mg Tab.chew 1 Tab PO DAILY 05/06/18 Reported Vitamin B-12 (Cyanocobalamin (Vitamin B-12)) 1,000 Mcg Tablet 1 Tab PO DAILYWLUN 05/06/18 Reported Gabapentin (Gabapentin) 100 Mg Capsule 300 Mg PO QHS 05/06/18 Reported Prednisone 5 Mg Tablet 5 Mg PO DAILY 06/26/17 Reported Albuterol Sulfate Conc Neb Soln (Albuterol Sulfate) 2.5 Mg/0.5 Ml Vial.neb 2.5 Mg NEB PRN Q4HRS PRN 04/01/17 Reported Impression . NOTE DICTATED AGREE WITH TREATMENT OF PNEUMONIA AND AECOPD JACKLYN BUCIO MD Jul 02, 2018 11:08
[2018-07-02] MEDS: CYANOCOBALAMIN (VITAMIN B-12) 1,000 MCG TABLET. PO SCH ×2 (11:25→18:39)
[2018-07-02] MEDS: DOCUSATE SODIUM 100 MG CAPSULE. PO SCH (11:25)
[2018-07-02 11:32] LABS: BASO % 0 % (0-3); EOS % 0 % (0-3); HEMATOCRIT 30.5 % (36.0-47.0); LYMPH # 0.5 x10^3/uL (1.0-4.8); LYMPH % 2 % (24-48); MEAN CORPUSCULAR HEMOGLOBIN 34 pg (25-35); MEAN CORPUSCULAR HGB CONC 33 g/dL (31-37); MEAN CORPUSCULAR VOLUME 103 fL (79-100); MONO # 0.6 x10^3/uL (0.0-1.1); MONO % 3 % (0-9); NEUT # 20.3 x10^3uL (1.8-7.7); NEUT % 95 % (31-73); PLATELET COUNT 798 x10^3/uL (140-400); RED BLOOD COUNT 2.96 x10^6/uL (3.50-5.40); RED CELL DISTRIBUTION WIDTH 22.9 % (11.5-14.5); WHITE BLOOD COUNT 21.4 x10^3/uL (4.0-11.0)
--- NOTE | 2018-07-02 20:00 | CONS ---
DATE OF CONSULTATION: 07/02/2018 ATTENDING PHYSICIAN: Dr. Jaime Power REASON FOR CONSULTATION: The patient was seen in pulmonary consultation at the request of Dr. Nazario for increasing shortness of air. HISTORY OF PRESENT ILLNESS: The patient is an 88-year-old that does not wear oxygen at home. She normally sees Dr. Miguel A Gan for COPD. She has a history of bronchitis, bronchiectasis, polycythemia vera and myelofibrosis. Followed at . She also has a history of lung cancer on CT, which she did not want any further evaluation for. According to the patient, she does not have a history of lung cancer. She presented to the Emergency Room with increasing shortness of breath, weakness, malaise, nausea and vomiting. Two days prior to admission, she started experiencing the above symptoms. She also reports right upper quadrant and right-sided chest discomfort. She was evaluated and underwent a chest x-ray, which I personally reviewed. I do not appreciate any infiltrates. There is opacity in the right apex that has not changed in comparison to previous film. She had a CT abdomen and pelvis, which revealed right hydronephrosis, distended bladder, nonspecific bowel pattern. She also had an infiltrate in the right lower lobe. PAST MEDICAL HISTORY: Otherwise remarkable as indicated above, mild fibrosis, bronchiectasis, abnormal CT of the chest compatible with primary lung cancer in the past and chronic bronchitis. PAST SURGICAL HISTORY: No recent major surgery. SOCIAL HISTORY: She is a former smoker, quit many years ago. Denies any alcohol intake. ALLERGIES: MULTIPLE MEDICATIONS: Please see the list. REVIEW OF SYSTEMS: As indicated above. Otherwise, the 10-point system was reviewed and negative. CONSTITUTIONAL: Some subjective fever and malaise. EYES: No change in visual acuity. HENT: No nasal congestion or sore throat. PULMONARY: As indicated above. GASTROINTESTINAL: As indicated above. GENITOURINARY: No dysuria or frequency. MUSCULOSKELETAL: No localized muscle aches or joint pains. SKIN: No new skin rashes. NEUROLOGIC: No headaches, diplopia or blurred vision. CURRENT MEDICATION: List was reviewed. PHYSICAL EXAMINATION: GENERAL: The patient was in no respiratory distress, currently on 2 liters of oxygen supplementation. HEENT: Eyes, the sclerae were nonicteric. NECK: Jugular venous distention was not elevated. No lymphadenopathy. CHEST: Full expansion. LUNGS: Poor airway flow with no wheezes. CARDIOVASCULAR: Regular rate and rhythm with S1, S2, no S3. ABDOMEN: Soft, nontender and nondistended. EXTREMITIES: No clubbing, cyanosis or edema. NEUROLOGIC: The patient was awake, alert and following commands. Detailed neuro exam was not performed. LABORATORY DATA: Reviewed. White count was elevated. Electrolytes were noted. Arterial blood gas; pH of 7.42, PaCO2 of 37, PaO2 of 78 on 28%. Chest x-ray as indicated above. IMPRESSION: 1. Abnormal x-ray compatible with pneumonia. 2. Previously abnormal CT of the chest revealing right upper lobe mass along with bronchiectasis in the lingular and right lower lobe. She has had previous workup by Dr. Miguel A Gan at [facility]. A CT-guided biopsy did not reveal evidence of malignancy. The patient has refused further workup. 3. Chronic lymphocytic leukemia. 4. Acute exacerbation of chronic obstructive pulmonary disease. 5. Leukocytosis. 6. Pneumonia. 7. Acute respiratory failure. 8. Protein malnutrition present upon admission. PLAN: 1. Continue current IV antibiotics. 2. Nebulized treatments. 3. DVT prophylaxis. 4. Continue home meds. 5. Steroids. I do appreciate the privilege in sharing in the patient's care. 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 Migeul A Gan. JACKLYN BUCIO MD DR: WALLY/brian JOB#: [id number] / [id number]
[2018-07-02] MEDS: GABAPENTIN 100 MG CAPSULE. PO SCH (20:14)
[2018-07-03] MEDS: traMADol 50 MG TABLET PO PRN (01:15)
[2018-07-03 03:00] VITALS: BP 121/68
[2018-07-03] MEDS: ACETAMINOPHEN 325 MG TABLET. PO SCH ×3 (05:03→17:14)
[2018-07-03 07:00] VITALS: BP 124/57
[2018-07-03 07:31] LABS: BASO # 0.1 x10^3/uL (0.0-0.2); BASO % 1 % (0-3); EOS % 0 % (0-3); HEMOGLOBIN 11.3 g/dL (12.0-15.5); LYMPH # 0.8 x10^3/uL (1.0-4.8); LYMPH % 4 % (24-48); MEAN CORPUSCULAR HEMOGLOBIN 33 pg (25-35); MEAN CORPUSCULAR HGB CONC 32 g/dL (31-37); MEAN CORPUSCULAR VOLUME 106 fL (79-100); MONO # 0.5 x10^3/uL (0.0-1.1); MONO % 3 % (0-9); NEUT # 20.2 x10^3uL (1.8-7.7); NEUT % 93 % (31-73); PLATELET COUNT 882 x10^3/uL (140-400); RED BLOOD COUNT 3.39 x10^6/uL (3.50-5.40); RED CELL DISTRIBUTION WIDTH 23.3 % (11.5-14.5); WHITE BLOOD COUNT 21.8 x10^3/uL (4.0-11.0)
[2018-07-03 07:42] LABS: CALCIUM 8.6 mg/dL (8.5-10.1); CREATININE 0.7 mg/dL (0.6-1.0); GFR 79.2; POTASSIUM 3.8 mmol/L (3.5-5.1)
--- NOTE | 2018-07-03 07:42 | PDOC ---
PULMONARY PROGRESS NOTES Vitals Vital Signs Date Time Temp Pulse Resp B/P (MAP) Pulse Ox O2 Delivery O2 Flow Rate FiO2 07/03/18 07:00 97.8 73 17 124/57 (79) 93 Room Air 97.8 07/02/18 15:24 2.0 General: Alert, Oriented X4, No acute distress HEENT: Other Lungs: Clear Cardiovascular: S1, S2 Abdomen: Soft, Non-tender Extremities: No Edema Labs Laboratory Tests Test 07/01/18 20:35 07/01/18 21:01 07/01/18 21:47 07/02/18 01:30 White Blood Count 24.9 x10^3/uL (4.0-11.0) Red Blood Count 3.45 x10^6/uL (3.50-5.40) Hemoglobin 11.8 g/dL (12.0-15.5) Hematocrit 35.5 % (36.0-47.0) Mean Corpuscular Volume 103 fL (79-100) Mean Corpuscular Hemoglobin 34 pg (25-35) Mean Corpuscular Hemoglobin Concent 33 g/dL (31-37) Red Cell Distribution Width 23.2 % (11.5-14.5) Platelet Count 982 x10^3/uL (140-400) Neutrophils (%) (Auto) 96 % (31-73) Lymphocytes (%) (Auto) 1 % (24-48) Monocytes (%) (Auto) 2 % (0-9) Eosinophils (%) (Auto) 0 % (0-3) Basophils (%) (Auto) 1 % (0-3) Neutrophils # (Auto) 23.8 x10^3uL (1.8-7.7) Lymphocytes # (Auto) 0.3 x10^3/uL (1.0-4.8) Monocytes # (Auto) 0.6 x10^3/uL (0.0-1.1) Eosinophils # (Auto) 0.1 x10^3/uL (0.0-0.7) Basophils # (Auto) 0.1 x10^3/uL (0.0-0.2) Segmented Neutrophils % 97 % (35-66) Band Neutrophils % 2 % (0-9) Lymphocytes % 1 % (24-48) Platelet Estimate Increased (ADEQUATE) Large Platelets Present Polychromasia Slight Poikilocytosis Slight Anisocytosis Mod Ovalocytes Few Sodium Level 137 mmol/L (136-145) Potassium Level 4.6 mmol/L (3.5-5.1) Chloride Level 102 mmol/L (98-107) Carbon Dioxide Level 26 mmol/L (21-32) Anion Gap 9 (6-14) Blood Urea Nitrogen 20 mg/dL (7-20) Creatinine 0.7 mg/dL (0.6-1.0) Estimated GFR (Cockcroft-Gault) 79.2 BUN/Creatinine Ratio 29 (6-20) Glucose Level 108 mg/dL (70-99) Lactic Acid Level 1.4 mmol/L (0.4-2.0) Calcium Level 8.8 mg/dL (8.5-10.1) Total Bilirubin 0.6 mg/dL (0.2-1.0) Aspartate Amino Transf (AST/SGOT) 15 U/L (15-37) Alanine Aminotransferase (ALT/SGPT) 11 U/L (14-59) Alkaline Phosphatase 89 U/L (46-116) Troponin I Quantitative < 0.017 ng/mL (0.000-0.055) Total Protein 6.4 g/dL (6.4-8.2) Albumin 3.1 g/dL (3.4-5.0) Albumin/Globulin Ratio 0.9 (1.0-1.7) Urine Collection Type U cath Urine Color Yellow Urine Clarity Clear Urine pH 6.0 Urine Specific [place] 1.020 Urine Protein Negative mg/dL (NEG-TRACE) Urine Glucose (UA) Negative mg/dL (NEG) Urine Ketones (Stick) Trace mg/dL (NEG) Urine Blood Negative (NEG) Urine Nitrite Negative (NEG) Urine Bilirubin Small (NEG) Urine Urobilinogen Dipstick 0.2 mg/dL (0.2 mg/dL) Urine Leukocyte Esterase Small (NEG) Urine RBC 0 /HPF (0-2) Urine WBC 5-10 /HPF (0-4) Urine Squamous Epithelial Cells Occ /LPF Urine Bacteria 0 /HPF (0-FEW) Urine Mucus Slight /LPF O2 Saturation 95 % (92-99) Arterial Blood pH 7.42 (7.35-7.45) Arterial Blood pCO2 at Patient Temp 37 mmHg (35-46) Arterial Blood pO2 at Patient Temp 78 mmHg (65-108) Arterial Blood HCO3 24 mmol/L (21-28) Arterial Blood Base Excess 0 mmol/L (-3-3) FiO2 28 Nasal Screen MRSA (PCR) Negative (Negative) Test 07/02/18 10:55 07/03/18 05:57 White Blood Count 21.4 x10^3/uL (4.0-11.0) 21.8 x10^3/uL (4.0-11.0) Red Blood Count 2.96 x10^6/uL (3.50-5.40) 3.39 x10^6/uL (3.50-5.40) Hemoglobin 10.0 g/dL (12.0-15.5) 11.3 g/dL (12.0-15.5) Hematocrit 30.5 % (36.0-47.0) 36.0 % (36.0-47.0) Mean Corpuscular Volume 103 fL (79-100) 106 fL (79-100) Mean Corpuscular Hemoglobin 34 pg (25-35) 33 pg (25-35) Mean Corpuscular Hemoglobin Concent 33 g/dL (31-37) 32 g/dL (31-37) Red Cell Distribution Width 22.9 % (11.5-14.5) 23.3 % (11.5-14.5) Platelet Count 798 x10^3/uL (140-400) 882 x10^3/uL (140-400) Neutrophils (%) (Auto) 95 % (31-73) 93 % (31-73) Lymphocytes (%) (Auto) 2 % (24-48) 4 % (24-48) Monocytes (%) (Auto) 3 % (0-9) 3 % (0-9) Eosinophils (%) (Auto) 0 % (0-3) 0 % (0-3) Basophils (%) (Auto) 0 % (0-3) 1 % (0-3) Neutrophils # (Auto) 20.3 x10^3uL (1.8-7.7) 20.2 x10^3uL (1.8-7.7) Lymphocytes # (Auto) 0.5 x10^3/uL (1.0-4.8) 0.8 x10^3/uL (1.0-4.8) Monocytes # (Auto) 0.6 x10^3/uL (0.0-1.1) 0.5 x10^3/uL (0.0-1.1) Eosinophils # (Auto) 0.0 x10^3/uL (0.0-0.7) 0.0 x10^3/uL (0.0-0.7) Basophils # (Auto) 0.0 x10^3/uL (0.0-0.2) 0.1 x10^3/uL (0.0-0.2) Laboratory Tests Test 07/02/18 10:55 07/03/18 05:57 White Blood Count 21.4 x10^3/uL (4.0-11.0) 21.8 x10^3/uL (4.0-11.0) Red Blood Count 2.96 x10^6/uL (3.50-5.40) 3.39 x10^6/uL (3.50-5.40) Hemoglobin 10.0 g/dL (12.0-15.5) 11.3 g/dL (12.0-15.5) Hematocrit 30.5 % (36.0-47.0) 36.0 % (36.0-47.0) Mean Corpuscular Volume 103 fL (79-100) 106 fL (79-100) Mean Corpuscular Hemoglobin 34 pg (25-35) 33 pg (25-35) Mean Corpuscular Hemoglobin Concent 33 g/dL (31-37) 32 g/dL (31-37) Red Cell Distribution Width 22.9 % (11.5-14.5) 23.3 % (11.5-14.5) Platelet Count 798 x10^3/uL (140-400) 882 x10^3/uL (140-400) Neutrophils (%) (Auto) 95 % (31-73) 93 % (31-73) Lymphocytes (%) (Auto) 2 % (24-48) 4 % (24-48) Monocytes (%) (Auto) 3 % (0-9) 3 % (0-9) Eosinophils (%) (Auto) 0 % (0-3) 0 % (0-3) Basophils (%) (Auto) 0 % (0-3) 1 % (0-3) Neutrophils # (Auto) 20.3 x10^3uL (1.8-7.7) 20.2 x10^3uL (1.8-7.7) Lymphocytes # (Auto) 0.5 x10^3/uL (1.0-4.8) 0.8 x10^3/uL (1.0-4.8) Monocytes # (Auto) 0.6 x10^3/uL (0.0-1.1) 0.5 x10^3/uL (0.0-1.1) Eosinophils # (Auto) 0.0 x10^3/uL (0.0-0.7) 0.0 x10^3/uL (0.0-0.7) Basophils # (Auto) 0.0 x10^3/uL (0.0-0.2) 0.1 x10^3/uL (0.0-0.2) Medications Active Scripts Medications Dose Route/Sig Max Daily Dose Days Date Category Multi Vitamin Daily (Multivitamin) 1 Each Tablet 1 Tab PO DAILY 07/02/18 Reported Miralax (Polyethylene Glycol 3350) Unknown Strength Powd.pack Unknown Dose PO BID 07/02/18 Reported Metoprolol Tartrate 25 Mg Tablet 1 Tab PO DAILY 07/02/18 Reported Duoneb 0.5-3(2.5) Mg/3 Ml (Albuterol/Ipratropium) 3 Ml Ampul.neb 3 Ml NEB Q6HRS PRN 07/02/18 Reported Vitamin B-12 (Cyanocobalamin (Vitamin B-12)) 1,000 Mcg Tablet 1 Tab PO DAILY 07/02/18 Reported Tramadol Hcl 50 Mg Tablet 100 Mg PO Q6HRS PRN 07/02/18 Reported Zofran Odt (Ondansetron) 4 Mg Tab.rapdis 0.5 Tab SL PRN Q6HRS PRN 05/06/18 Reported Biofreeze (Menthol) 118 Ml Gel..ml. 118 Ml TP PRN QID PRN 05/06/18 Reported [place] Saline (Sodium Chloride) 50 Ml Drops 1 Tu NS TID PRN 05/06/18 Reported Hydroxyurea 500 Mg Capsule 500 Mg PO BID 05/06/18 Reported Milk Of Magnesia (Magnesium Hydroxide) 400 Mg/5 Ml Oral.susp 30 Ml PO PRN DAILY PRN 05/06/18 Reported Maalox Maximum Strength Susp (Mag Hydrox/Al Hydrox/Simeth) 355 Ml Oral.susp 30 Ml PO PRN Q4HRS PRN 05/06/18 Reported Aquaphor Ointment (Mineral Oil/Hydrophil Petrolat) 396 Gm Oint...g. 396 Gm TP BID 05/06/18 Reported Furosemide 40 Mg Tablet 1 Tab PO DAILY 05/06/18 Reported Valium (Diazepam) 2 Mg Tablet 2 Mg PO PRN TID PRN 05/06/18 Reported Myrbetriq (Mirabegron) 25 Mg Tab.er.24h 25 Mg PO DAILY 05/06/18 Reported Acetaminophen Ext.release (Acetaminophen) 650 Mg Tablet.er 650 Mg PO Q6HRS 05/06/18 Reported Ibuprofen 400 Mg Tablet 400 Mg PO QID 05/06/18 Reported Colace (Docusate Sodium) 100 Mg Capsule 1 Cap PO DAILYWLUN 05/06/18 Reported Aspirin 81 Mg Tab.chew 1 Tab PO DAILY 05/06/18 Reported Vitamin B-12 (Cyanocobalamin (Vitamin B-12)) 1,000 Mcg Tablet 1 Tab PO DAILYWLUN 05/06/18 Reported Gabapentin (Gabapentin) 100 Mg Capsule 300 Mg PO QHS 05/06/18 Reported Prednisone 5 Mg Tablet 5 Mg PO DAILY 06/26/17 Reported Albuterol Sulfate Conc Neb Soln (Albuterol Sulfate) 2.5 Mg/0.5 Ml Vial.neb 2.5 Mg NEB PRN Q4HRS PRN 04/01/17 Reported Impression . IMPRESSION: 1. Abnormal x-ray compatible with pneumonia. 2. Previously abnormal CT of the chest revealing right upper lobe mass along with bronchiectasis in the lingular and right lower lobe. She has had previous workup by Dr. Miguel A Gan at [facility]. A CT-guided biopsy did not reveal evidence of malignancy. The patient has refused further workup. 3. Chronic lymphocytic leukemia. 4. Acute exacerbation of chronic obstructive pulmonary disease. 5. Leukocytosis. 6. Pneumonia. 7. Acute respiratory failure. 8. Protein malnutrition present upon admission. Plan . RESP STATUS IS COMPENSATED ON RA WILL CONTINUE THE SAME 1. Continue current IV antibiotics. 2. Nebulized treatments. 3. DVT prophylaxis. 4. Continue home meds. 5. Steroids. JACKLYN BUCIO MD Jul 03, 2018 07:42
[2018-07-03] MEDS: IBUPROFEN 400 MG TABLET. PO SCH ×4 (08:56→21:43)
[2018-07-03] MEDS: ASPIRIN CHEWABLE 81 MG TABLET. PO SCH (08:57)
--- NOTE | 2018-07-03 08:58 | PDOC ---
Provider Note Provider Note vss, no temp, sleeping w/o dyspnea- known CLL, wbc up from 04/27 re RLL pneumonia- ct shows R hydronephrosis- ua clear, hydro not seen 2016 ct- uro consult, cont rocep/azith re SUSAN GUERRERO MD Jul 03, 2018 08:58
[2018-07-03] MEDS ORDERED: predniSONE 5 MG TABLET PO SCH (09:00)
[2018-07-03] MEDS ORDERED: CYANOCOBALAMIN (VITAMIN B-12) 1,000 MCG TABLET. PO SCH (09:00)
[2018-07-03] MEDS: AZITHROMYCIN 250 MG TABLET. PO SCH (09:04)
[2018-07-03] MEDS: HYDROXYUREA 500 MG CAPSULE PO SCH ×2 (09:05→22:00)
[2018-07-03] MEDS: cefTRIAXone IV Push 1 GM VIAL. IVP SCH (10:54)
[2018-07-03 11:00] VITALS: BP 127/67
[2018-07-03] MEDS: DOCUSATE SODIUM 100 MG CAPSULE. PO SCH (13:15)
--- NOTE | 2018-07-03 13:26 | PDOC2 ---
UROLOGY CONSULT Date of Consult Date of Consult DATE: 07/03/18 TIME: 13:17 Reason for Consult Reason for Consult: right hydronephrosis Referring Physician Referring Physician: Dr. Ramirez Identification/Chief Complaint Chief Complaint cough Source Source: Chart review, Patient History of Present Illness Reason for Visit: 88 yo F with multiple chronic health condition admitted with pneumonia. Evaluation included a CT scan of the C/A/P and per the report identified mild right hydronephrosis. Patient has no knowledge of having hydronephrosis, no right sided flank pain, personal or family hx. She has never seen blood in her urine. Cr is <1.0 and UA in unremarkable. Past Medical History Cardiovascular: HTN Pulmonary: COPD, Other Heme/Onc: Cancer Past Surgical History Past Surgical History: Mastectomy, Tonsillectomy, Hysterectomy, Colon Resection Family History Family History: Cancer Social History ALCOHOL: occassional Drugs: None Current Medications Current Medications Current Medications Azithromycin (Zithromax) 250 mg DAILY PO Last administered on 07/03/18at 09:04 ; Start 07/03/18 at 09:00 Cyanocobalamin (Vitamin B-12) 1,000 mcg DAILY PO ; Start 07/03/18 at 09:00; Status UNV Gabapentin (Neurontin) 300 mg QHS PO Last administered on 07/02/18at 20:14; Start 07/02/18 at 21:00 Prednisone (Prednisone) 30 mg DAILY PO Last administered on 07/03/18at 08:57; Start 07/03/18 at 09:00 Allergies Allergies: Coded Allergies: Sulfa (Sulfonamide Antibiotics) (Verified Allergy, Intermediate, Rash, ) codeine (Verified Allergy, Intermediate, 05/06/18) colloidal oatmeal (Verified Allergy, Intermediate, 05/06/18) cyclobenzaprine (Verified Allergy, Intermediate, 05/06/18) dimethicone (Verified Allergy, Intermediate, 05/06/18) fentanyl (Verified Allergy, Intermediate, Shortness of Air, 05/06/18) menthol (Verified Allergy, Intermediate, 05/06/18) morphine (Verified Allergy, Intermediate, 05/06/18) moxifloxacin (Verified Allergy, Intermediate, 05/06/18) PT CURRENTLY TAKING LEVAQUIN PO WITH NO PROBLEM soap (Verified Allergy, Intermediate, 05/06/18) ROS Review Of Systems: Pertinent positives and negatives reviewed and included in the HPI. Physical Exam Physical Exam: General: Pleasant, no acute distress Eyes: conjunctiva anicteric ENT: moist oral mucosa, multiple missing teeth Neck: Trachea midline Respiratory: unlabored breathing, not using accessory muscles Cardiovascular: Normal temperature Abdomen: nontender, nondistended, no CVA tenderness Skin: no rashes or skin lesions on visualized skin Psych: normal mood, affect. Alert and oriented x 3. Vitals VITALS Vital Signs Date Time Temp Pulse Resp B/P (MAP) Pulse Ox O2 Delivery O2 Flow Rate FiO2 07/03/18 11:00 97.8 80 18 127/67 (87) 91 Room Air 97.8 07/03/18 07:30 2.0 Labs Labs Laboratory Tests Test 07/01/18 20:35 07/01/18 21:01 07/01/18 21:47 07/02/18 01:30 White Blood Count 24.9 x10^3/uL (4.0-11.0) Red Blood Count 3.45 x10^6/uL (3.50-5.40) Hemoglobin 11.8 g/dL (12.0-15.5) Hematocrit 35.5 % (36.0-47.0) Mean Corpuscular Volume 103 fL (79-100) Mean Corpuscular Hemoglobin 34 pg (25-35) Mean Corpuscular Hemoglobin Concent 33 g/dL (31-37) Red Cell Distribution Width 23.2 % (11.5-14.5) Platelet Count 982 x10^3/uL (140-400) Neutrophils (%) (Auto) 96 % (31-73) Lymphocytes (%) (Auto) 1 % (24-48) Monocytes (%) (Auto) 2 % (0-9) Eosinophils (%) (Auto) 0 % (0-3) Basophils (%) (Auto) 1 % (0-3) Neutrophils # (Auto) 23.8 x10^3uL (1.8-7.7) Lymphocytes # (Auto) 0.3 x10^3/uL (1.0-4.8) Monocytes # (Auto) 0.6 x10^3/uL (0.0-1.1) Eosinophils # (Auto) 0.1 x10^3/uL (0.0-0.7) Basophils # (Auto) 0.1 x10^3/uL (0.0-0.2) Segmented Neutrophils % 97 % (35-66) Band Neutrophils % 2 % (0-9) Lymphocytes % 1 % (24-48) Platelet Estimate Increased (ADEQUATE) Large Platelets Present Polychromasia Slight Poikilocytosis Slight Anisocytosis Mod Ovalocytes Few Sodium Level 137 mmol/L (136-145) Potassium Level 4.6 mmol/L (3.5-5.1) Chloride Level 102 mmol/L (98-107) Carbon Dioxide Level 26 mmol/L (21-32) Anion Gap 9 (6-14) Blood Urea Nitrogen 20 mg/dL (7-20) Creatinine 0.7 mg/dL (0.6-1.0) Estimated GFR (Cockcroft-Gault) 79.2 BUN/Creatinine Ratio 29 (6-20) Glucose Level 108 mg/dL (70-99) Lactic Acid Level 1.4 mmol/L (0.4-2.0) Calcium Level 8.8 mg/dL (8.5-10.1) Total Bilirubin 0.6 mg/dL (0.2-1.0) Aspartate Amino Transf (AST/SGOT) 15 U/L (15-37) Alanine Aminotransferase (ALT/SGPT) 11 U/L (14-59) Alkaline Phosphatase 89 U/L (46-116) Troponin I Quantitative < 0.017 ng/mL (0.000-0.055) Total Protein 6.4 g/dL (6.4-8.2) Albumin 3.1 g/dL (3.4-5.0) Albumin/Globulin Ratio 0.9 (1.0-1.7) Urine Collection Type U cath Urine Color Yellow Urine Clarity Clear Urine pH 6.0 Urine Specific [place] 1.020 Urine Protein Negative mg/dL (NEG-TRACE) Urine Glucose (UA) Negative mg/dL (NEG) Urine Ketones (Stick) Trace mg/dL (NEG) Urine Blood Negative (NEG) Urine Nitrite Negative (NEG) Urine Bilirubin Small (NEG) Urine Urobilinogen Dipstick 0.2 mg/dL (0.2 mg/dL) Urine Leukocyte Esterase Small (NEG) Urine RBC 0 /HPF (0-2) Urine WBC 5-10 /HPF (0-4) Urine Squamous Epithelial Cells Occ /LPF Urine Bacteria 0 /HPF (0-FEW) Urine Mucus Slight /LPF O2 Saturation 95 % (92-99) Arterial Blood pH 7.42 (7.35-7.45) Arterial Blood pCO2 at Patient Temp 37 mmHg (35-46) Arterial Blood pO2 at Patient Temp 78 mmHg (65-108) Arterial Blood HCO3 24 mmol/L (21-28) Arterial Blood Base Excess 0 mmol/L (-3-3) FiO2 28 Nasal Screen MRSA (PCR) Negative (Negative) Test 07/02/18 10:55 07/03/18 05:57 White Blood Count 21.4 x10^3/uL (4.0-11.0) 21.8 x10^3/uL (4.0-11.0) Red Blood Count 2.96 x10^6/uL (3.50-5.40) 3.39 x10^6/uL (3.50-5.40) Hemoglobin 10.0 g/dL (12.0-15.5) 11.3 g/dL (12.0-15.5) Hematocrit 30.5 % (36.0-47.0) 36.0 % (36.0-47.0) Mean Corpuscular Volume 103 fL (79-100) 106 fL (79-100) Mean Corpuscular Hemoglobin 34 pg (25-35) 33 pg (25-35) Mean Corpuscular Hemoglobin Concent 33 g/dL (31-37) 32 g/dL (31-37) Red Cell Distribution Width 22.9 % (11.5-14.5) 23.3 % (11.5-14.5) Platelet Count 798 x10^3/uL (140-400) 882 x10^3/uL (140-400) Neutrophils (%) (Auto) 95 % (31-73) 93 % (31-73) Lymphocytes (%) (Auto) 2 % (24-48) 4 % (24-48) Monocytes (%) (Auto) 3 % (0-9) 3 % (0-9) Eosinophils (%) (Auto) 0 % (0-3) 0 % (0-3) Basophils (%) (Auto) 0 % (0-3) 1 % (0-3) Neutrophils # (Auto) 20.3 x10^3uL (1.8-7.7) 20.2 x10^3uL (1.8-7.7) Lymphocytes # (Auto) 0.5 x10^3/uL (1.0-4.8) 0.8 x10^3/uL (1.0-4.8) Monocytes # (Auto) 0.6 x10^3/uL (0.0-1.1) 0.5 x10^3/uL (0.0-1.1) Eosinophils # (Auto) 0.0 x10^3/uL (0.0-0.7) 0.0 x10^3/uL (0.0-0.7) Basophils # (Auto) 0.0 x10^3/uL (0.0-0.2) 0.1 x10^3/uL (0.0-0.2) Sodium Level 140 mmol/L (136-145) Potassium Level 3.8 mmol/L (3.5-5.1) Chloride Level 106 mmol/L (98-107) Carbon Dioxide Level 26 mmol/L (21-32) Anion Gap 8 (6-14) Blood Urea Nitrogen 9 mg/dL (7-20) Creatinine 0.7 mg/dL (0.6-1.0) Estimated GFR (Cockcroft-Gault) 79.2 Glucose Level 59 mg/dL (70-99) Calcium Level 8.6 mg/dL (8.5-10.1) Laboratory Tests Test 07/03/18 05:57 White Blood Count 21.8 x10^3/uL (4.0-11.0) Red Blood Count 3.39 x10^6/uL (3.50-5.40) Hemoglobin 11.3 g/dL (12.0-15.5) Hematocrit 36.0 % (36.0-47.0) Mean Corpuscular Volume 106 fL (79-100) Mean Corpuscular Hemoglobin 33 pg (25-35) Mean Corpuscular Hemoglobin Concent 32 g/dL (31-37) Red Cell Distribution Width 23.3 % (11.5-14.5) Platelet Count 882 x10^3/uL (140-400) Neutrophils (%) (Auto) 93 % (31-73) Lymphocytes (%) (Auto) 4 % (24-48) Monocytes (%) (Auto) 3 % (0-9) Eosinophils (%) (Auto) 0 % (0-3) Basophils (%) (Auto) 1 % (0-3) Neutrophils # (Auto) 20.2 x10^3uL (1.8-7.7) Lymphocytes # (Auto) 0.8 x10^3/uL (1.0-4.8) Monocytes # (Auto) 0.5 x10^3/uL (0.0-1.1) Eosinophils # (Auto) 0.0 x10^3/uL (0.0-0.7) Basophils # (Auto) 0.1 x10^3/uL (0.0-0.2) Sodium Level 140 mmol/L (136-145) Potassium Level 3.8 mmol/L (3.5-5.1) Chloride Level 106 mmol/L (98-107) Carbon Dioxide Level 26 mmol/L (21-32) Anion Gap 8 (6-14) Blood Urea Nitrogen 9 mg/dL (7-20) Creatinine 0.7 mg/dL (0.6-1.0) Estimated GFR (Cockcroft-Gault) 79.2 Glucose Level 59 mg/dL (70-99) Calcium Level 8.6 mg/dL (8.5-10.1) Images Images Recent CT and CT from 2017 reviewed Assessment/Plan Assessment/Plan 88 yo F with no past urologic hx admitted with pneumonia found to have right hydronephrosis. On my review of the images this was present in 2017 and is very mild. Potentially just an extrarenal pelvis. I am unable to follow the ureter down into the pelvis. She is without sx, has a normal Cr and UA. Recommended continued observation. Would repeat renal US in 6 mo as an outpatient. Patient can call to arrange f/u at the time of discharge [phone]. Will sign-off. Please call with questions. JOSE CHEATHAM MD Jul 03, 2018 13:26
[2018-07-03 15:00] VITALS: BP 127/48
[2018-07-03 19:00] VITALS: BP 111/64
[2018-07-03] MEDS: GABAPENTIN 100 MG CAPSULE. PO SCH (21:44)
[2018-07-03 23:00] VITALS: BP 130/76
[2018-07-04] MEDS: ACETAMINOPHEN 325 MG TABLET. PO SCH ×4 (00:14→17:05)
[2018-07-04 03:00] VITALS: BP 133/75
[2018-07-04 07:00] VITALS: BP 137/73
[2018-07-04] MEDS: cefTRIAXone IV Push 1 GM VIAL. IVP SCH (09:16)
[2018-07-04] MEDS: FUROSEMIDE 40 MG TABLET. PO SCH (09:19)
[2018-07-04] MEDS: ASPIRIN CHEWABLE 81 MG TABLET. PO SCH (09:19)
[2018-07-04] MEDS: predniSONE 10 MG TABLET PO SCH (09:20)
[2018-07-04] MEDS: IBUPROFEN 400 MG TABLET. PO SCH ×4 (09:20→21:28)
[2018-07-04] MEDS: METOPROLOL TART IMMED RELEASE 25 MG TABLET. PO SCH (09:20)
[2018-07-04] MEDS: AZITHROMYCIN 250 MG TABLET. PO SCH (09:21)
[2018-07-04] MEDS: HYDROXYUREA 500 MG CAPSULE PO SCH ×2 (09:24→21:36)
[2018-07-04 11:00] VITALS: BP 136/73
--- NOTE | 2018-07-04 11:29 | PDOC ---
PULMONARY PROGRESS NOTES Subjective PT NOT MORE SOA Vitals Vital Signs Date Time Temp Pulse Resp B/P (MAP) Pulse Ox O2 Delivery O2 Flow Rate FiO2 07/04/18 09:20 80 137/73 07/04/18 07:00 98.5 18 94 Room Air 98.5 07/03/18 15:00 2.0 ROS: No Nausea, No Chest Pain, No Abdominal Pain, No Increase Cough General: Alert, No acute distress Lungs: Clear Cardiovascular: S1, S2 Abdomen: Soft, Non-tender Neuro Exam: Alert Extremities: No Edema Skin: Warm Labs Laboratory Tests Test 07/03/18 05:57 White Blood Count 21.8 x10^3/uL (4.0-11.0) Red Blood Count 3.39 x10^6/uL (3.50-5.40) Hemoglobin 11.3 g/dL (12.0-15.5) Hematocrit 36.0 % (36.0-47.0) Mean Corpuscular Volume 106 fL (79-100) Mean Corpuscular Hemoglobin 33 pg (25-35) Mean Corpuscular Hemoglobin Concent 32 g/dL (31-37) Red Cell Distribution Width 23.3 % (11.5-14.5) Platelet Count 882 x10^3/uL (140-400) Neutrophils (%) (Auto) 93 % (31-73) Lymphocytes (%) (Auto) 4 % (24-48) Monocytes (%) (Auto) 3 % (0-9) Eosinophils (%) (Auto) 0 % (0-3) Basophils (%) (Auto) 1 % (0-3) Neutrophils # (Auto) 20.2 x10^3uL (1.8-7.7) Lymphocytes # (Auto) 0.8 x10^3/uL (1.0-4.8) Monocytes # (Auto) 0.5 x10^3/uL (0.0-1.1) Eosinophils # (Auto) 0.0 x10^3/uL (0.0-0.7) Basophils # (Auto) 0.1 x10^3/uL (0.0-0.2) Sodium Level 140 mmol/L (136-145) Potassium Level 3.8 mmol/L (3.5-5.1) Chloride Level 106 mmol/L (98-107) Carbon Dioxide Level 26 mmol/L (21-32) Anion Gap 8 (6-14) Blood Urea Nitrogen 9 mg/dL (7-20) Creatinine 0.7 mg/dL (0.6-1.0) Estimated GFR (Cockcroft-Gault) 79.2 Glucose Level 59 mg/dL (70-99) Calcium Level 8.6 mg/dL (8.5-10.1) Medications Active Scripts Medications Dose Route/Sig Max Daily Dose Days Date Category Multi Vitamin Daily (Multivitamin) 1 Each Tablet 1 Tab PO DAILY 07/02/18 Reported Miralax (Polyethylene Glycol 3350) Unknown Strength Powd.pack Unknown Dose PO BID 07/02/18 Reported Metoprolol Tartrate 25 Mg Tablet 1 Tab PO DAILY 07/02/18 Reported Duoneb 0.5-3(2.5) Mg/3 Ml (Albuterol/Ipratropium) 3 Ml Ampul.neb 3 Ml NEB Q6HRS PRN 07/02/18 Reported Vitamin B-12 (Cyanocobalamin (Vitamin B-12)) 1,000 Mcg Tablet 1 Tab PO DAILY 07/02/18 Reported Tramadol Hcl 50 Mg Tablet 100 Mg PO Q6HRS PRN 07/02/18 Reported Zofran Odt (Ondansetron) 4 Mg Tab.rapdis 0.5 Tab SL PRN Q6HRS PRN 05/06/18 Reported Biofreeze (Menthol) 118 Ml Gel..ml. 118 Ml TP PRN QID PRN 05/06/18 Reported [place] Saline (Sodium Chloride) 50 Ml Drops 1 Tu NS TID PRN 05/06/18 Reported Hydroxyurea 500 Mg Capsule 500 Mg PO BID 05/06/18 Reported Milk Of Magnesia (Magnesium Hydroxide) 400 Mg/5 Ml Oral.susp 30 Ml PO PRN DAILY PRN 05/06/18 Reported Maalox Maximum Strength Susp (Mag Hydrox/Al Hydrox/Simeth) 355 Ml Oral.susp 30 Ml PO PRN Q4HRS PRN 05/06/18 Reported Aquaphor Ointment (Mineral Oil/Hydrophil Petrolat) 396 Gm Oint...g. 396 Gm TP BID 05/06/18 Reported Furosemide 40 Mg Tablet 1 Tab PO DAILY 05/06/18 Reported Valium (Diazepam) 2 Mg Tablet 2 Mg PO PRN TID PRN 05/06/18 Reported Myrbetriq (Mirabegron) 25 Mg Tab.er.24h 25 Mg PO DAILY 05/06/18 Reported Acetaminophen Ext.release (Acetaminophen) 650 Mg Tablet.er 650 Mg PO Q6HRS 05/06/18 Reported Ibuprofen 400 Mg Tablet 400 Mg PO QID 05/06/18 Reported Colace (Docusate Sodium) 100 Mg Capsule 1 Cap PO DAILYWLUN 05/06/18 Reported Aspirin 81 Mg Tab.chew 1 Tab PO DAILY 05/06/18 Reported Vitamin B-12 (Cyanocobalamin (Vitamin B-12)) 1,000 Mcg Tablet 1 Tab PO DAILYWLUN 05/06/18 Reported Gabapentin (Gabapentin) 100 Mg Capsule 300 Mg PO QHS 05/06/18 Reported Prednisone 5 Mg Tablet 5 Mg PO DAILY 06/26/17 Reported Albuterol Sulfate Conc Neb Soln (Albuterol Sulfate) 2.5 Mg/0.5 Ml Vial.neb 2.5 Mg NEB PRN Q4HRS PRN 04/01/17 Reported Impression . IMPRESSION: 1. Abnormal x-ray compatible with pneumonia. 2. Previously abnormal CT of the chest revealing right upper lobe mass along with bronchiectasis in the lingular and right lower lobe. She has had previous workup by Dr. Miguel A Gan at [facility] [place]. A CT-guided biopsy did not reveal evidence of malignancy. The patient has refused further workup. 3. Chronic lymphocytic leukemia. 4. Acute exacerbation of chronic obstructive pulmonary disease. 5. Leukocytosis. 6. Pneumonia. 7. Acute respiratory failure. 8. Protein malnutrition present upon admission. Plan . FOLLOW UP DR Angie GAN ONCE D/C RESP STATUS IS COMPENSATED ON RA WILL CONTINUE THE SAME ANTIBX JACKLYN BUCIO MD Jul 04, 2018 11:29
--- NOTE | 2018-07-04 11:45 | PDOC ---
Provider Note Provider Note no temp, vss, uro cons noted- cont same meds, likely dc 1-2 days- CLL affects wbc SUSAN LANIER MD Jul 04, 2018 11:45
--- NOTE | 2018-07-04 11:53 | PDOC ---
Provider Note Provider Note iv out so will use cefdinir/azith now po SUSAN LANIER MD Jul 04, 2018 11:53
[2018-07-04] MEDS: DOCUSATE SODIUM 100 MG CAPSULE. PO SCH (12:14)
[2018-07-04] MEDS: CYANOCOBALAMIN (VITAMIN B-12) 1,000 MCG TABLET. PO SCH (12:15)
[2018-07-04 15:00] VITALS: BP 138/74
[2018-07-04 19:00] VITALS: BP 136/75
[2018-07-04] MEDS: GABAPENTIN 100 MG CAPSULE. PO SCH (21:27)
[2018-07-04] MEDS: CEFDINIR 300 MG CAPSULE PO SCH (21:27)
[2018-07-04 22:48] VITALS: BP 157/72
[2018-07-05 02:54] VITALS: BP 158/85
[2018-07-05] MEDS: ACETAMINOPHEN 325 MG TABLET. PO SCH ×4 (06:00→17:48)
[2018-07-05 07:00] VITALS: BP 146/77
[2018-07-05] MEDS: traMADol 50 MG TABLET PO PRN ×2 (08:45→20:19)
[2018-07-05] MEDS: IBUPROFEN 400 MG TABLET. PO SCH ×4 (08:46→20:17)
--- NOTE | 2018-07-05 09:33 | PDOC ---
PULMONARY PROGRESS NOTES Subjective PT NOT MORE SOA Vitals Vital Signs Date Time Temp Pulse Resp B/P (MAP) Pulse Ox O2 Delivery O2 Flow Rate FiO2 07/05/18 08:45 18 Room Air 07/05/18 07:00 98.3 83 146/77 (100) 93 98.3 07/04/18 19:46 2.0 ROS: No Nausea, No Chest Pain, No Abdominal Pain, No Increase Cough General: Alert, No acute distress Lungs: Clear Cardiovascular: S1, S2 Abdomen: Soft, Non-tender Neuro Exam: Alert Extremities: No Edema Skin: Warm Medications Active Scripts Medications Dose Route/Sig Max Daily Dose Days Date Category Multi Vitamin Daily (Multivitamin) 1 Each Tablet 1 Tab PO DAILY 07/02/18 Reported Miralax (Polyethylene Glycol 3350) Unknown Strength Powd.pack Unknown Dose PO BID 07/02/18 Reported Metoprolol Tartrate 25 Mg Tablet 1 Tab PO DAILY 07/02/18 Reported Duoneb 0.5-3(2.5) Mg/3 Ml (Albuterol/Ipratropium) 3 Ml Ampul.neb 3 Ml NEB Q6HRS PRN 07/02/18 Reported Vitamin B-12 (Cyanocobalamin (Vitamin B-12)) 1,000 Mcg Tablet 1 Tab PO DAILY 07/02/18 Reported Tramadol Hcl 50 Mg Tablet 100 Mg PO Q6HRS PRN 07/02/18 Reported Zofran Odt (Ondansetron) 4 Mg Tab.rapdis 0.5 Tab SL PRN Q6HRS PRN 05/06/18 Reported Biofreeze (Menthol) 118 Ml Gel..ml. 118 Ml TP PRN QID PRN 05/06/18 Reported [place] Saline (Sodium Chloride) 50 Ml Drops 1 Tu NS TID PRN 05/06/18 Reported Hydroxyurea 500 Mg Capsule 500 Mg PO BID 05/06/18 Reported Milk Of Magnesia (Magnesium Hydroxide) 400 Mg/5 Ml Oral.susp 30 Ml PO PRN DAILY PRN 05/06/18 Reported Maalox Maximum Strength Susp (Mag Hydrox/Al Hydrox/Simeth) 355 Ml Oral.susp 30 Ml PO PRN Q4HRS PRN 05/06/18 Reported Aquaphor Ointment (Mineral Oil/Hydrophil Petrolat) 396 Gm Oint...g. 396 Gm TP BID 05/06/18 Reported Furosemide 40 Mg Tablet 1 Tab PO DAILY 05/06/18 Reported Valium (Diazepam) 2 Mg Tablet 2 Mg PO PRN TID PRN 05/06/18 Reported Myrbetriq (Mirabegron) 25 Mg Tab.er.24h 25 Mg PO DAILY 05/06/18 Reported Acetaminophen Ext.release (Acetaminophen) 650 Mg Tablet.er 650 Mg PO Q6HRS 05/06/18 Reported Ibuprofen 400 Mg Tablet 400 Mg PO QID 05/06/18 Reported Colace (Docusate Sodium) 100 Mg Capsule 1 Cap PO DAILYWLUN 05/06/18 Reported Aspirin 81 Mg Tab.chew 1 Tab PO DAILY 05/06/18 Reported Vitamin B-12 (Cyanocobalamin (Vitamin B-12)) 1,000 Mcg Tablet 1 Tab PO DAILYWLUN 05/06/18 Reported Gabapentin (Gabapentin) 100 Mg Capsule 300 Mg PO QHS 05/06/18 Reported Prednisone 5 Mg Tablet 5 Mg PO DAILY 06/26/17 Reported Albuterol Sulfate Conc Neb Soln (Albuterol Sulfate) 2.5 Mg/0.5 Ml Vial.neb 2.5 Mg NEB PRN Q4HRS PRN 04/01/17 Reported Impression . IMPRESSION: 1. Abnormal x-ray compatible with pneumonia. 2. Previously abnormal CT of the chest revealing right upper lobe mass along with bronchiectasis in the lingular and right lower lobe. She has had previous workup by Dr. Miguel A Gan at [facility]. A CT-guided biopsy did not reveal evidence of malignancy. The patient has refused further workup. 3. Chronic lymphocytic leukemia. 4. Acute exacerbation of chronic obstructive pulmonary disease. 5. Leukocytosis. 6. Pneumonia. 7. Acute respiratory failure. 8. Protein malnutrition present upon admission. Plan . HOME IN AM OK BY ME FOLLOW UP DR Angie GAN ONCE D/C RESP STATUS IS COMPENSATED ON RA WILL CONTINUE THE SAME ANTIBX JACKLYN BUCIO MD Jul 05, 2018 09:33
[2018-07-05] MEDS: predniSONE 10 MG TABLET PO SCH (10:29)
[2018-07-05] MEDS: CEFDINIR 300 MG CAPSULE PO SCH ×2 (10:29→20:17)
[2018-07-05] MEDS: AZITHROMYCIN 250 MG TABLET. PO SCH (10:29)
[2018-07-05] MEDS: METOPROLOL TART IMMED RELEASE 25 MG TABLET. PO SCH (10:30)
[2018-07-05] MEDS: ASPIRIN CHEWABLE 81 MG TABLET. PO SCH (10:30)
[2018-07-05] MEDS: FUROSEMIDE 40 MG TABLET. PO SCH (10:30)
[2018-07-05] MEDS: HYDROXYUREA 500 MG CAPSULE PO SCH ×2 (10:40→20:25)
[2018-07-05 11:00] VITALS: BP 150/66
--- NOTE | 2018-07-05 11:17 | PN ---
DATE: 07/05/2018 LOCATION: She is in room 506. SUBJECTIVE: The patient is awake, alert, getting ready to eat breakfast and feels like she will eat a good amount this morning. Her major complaint is left heel pain. OBJECTIVE: VITAL SIGNS: Stable. She is afebrile. GENERAL: She is awake, alert. CHEST: Reveals diminished breath sounds bilaterally. HEART: Regular. ABDOMEN: Benign. EXTREMITIES: Reveal the left posterior and lateral heel ulcers, which did not seem to show much improvement despite wound care, follow up as an outpatient and will ask wound care to see her while she is here for the same. IMPRESSION: 1. Pneumonia, clinically improving. 2. Heel ulcer. 3. Polycythemia. 4. Leukocytosis. PLAN: Continue antibiotics. Await wound care consult, would anticipate discharge probably in a day or so. KYLE MCKOY MD DR: YOLANDA/brian JOB#: [id number] / [id number]
[2018-07-05] MEDS: CYANOCOBALAMIN (VITAMIN B-12) 1,000 MCG TABLET. PO SCH (12:07)
[2018-07-05] MEDS: DOCUSATE SODIUM 100 MG CAPSULE. PO SCH (12:07)
[2018-07-05 15:00] VITALS: BP 152/78
[2018-07-05 19:00] VITALS: BP 101/58
[2018-07-05] MEDS: GABAPENTIN 100 MG CAPSULE. PO SCH (20:17)
[2018-07-05 22:55] VITALS: BP 131/71
[2018-07-06 03:00] VITALS: BP 138/75
[2018-07-06] MEDS: ACETAMINOPHEN 325 MG TABLET. PO SCH ×5 (06:00→23:59)
[2018-07-06 06:08] LABS: BASO # 0.2 x10^3/uL (0.0-0.2); BASO % 0 % (0-3); EOS % 0 % (0-3); HEMATOCRIT 37.8 % (36.0-47.0); HEMOGLOBIN 12.2 g/dL (12.0-15.5); LYMPH # 0.8 x10^3/uL (1.0-4.8); LYMPH % 2 % (24-48); MEAN CORPUSCULAR HEMOGLOBIN 33 pg (25-35); MEAN CORPUSCULAR HGB CONC 32 g/dL (31-37); MEAN CORPUSCULAR VOLUME 101 fL (79-100); MONO # 0.6 x10^3/uL (0.0-1.1); MONO % 2 % (0-9); NEUT # 40.9 x10^3uL (1.8-7.7); NEUT % 96 % (31-73); RED BLOOD COUNT 3.73 x10^6/uL (3.50-5.40); RED CELL DISTRIBUTION WIDTH 22.5 % (11.5-14.5)
[2018-07-06 06:14] LABS: WHITE BLOOD COUNT 42.5 x10^3/uL (4.0-11.0)
[2018-07-06 06:15] LABS: PLATELET COUNT 951 x10^3/uL (140-400)
[2018-07-06 07:00] VITALS: BP 136/70
--- NOTE | 2018-07-06 09:15 | PDOC ---
PULMONARY PROGRESS NOTES Subjective PT NOT MORE SOA Vitals Vital Signs Date Time Temp Pulse Resp B/P (MAP) Pulse Ox O2 Delivery O2 Flow Rate FiO2 07/06/18 07:00 98.2 74 18 136/70 (92) 95 Room Air 98.2 07/05/18 08:00 2.0 ROS: No Nausea, No Chest Pain, No Abdominal Pain, No Increase Cough General: Alert, No acute distress Lungs: Clear Cardiovascular: S1, S2 Abdomen: Soft, Non-tender Neuro Exam: Alert Extremities: No Edema Skin: Warm Labs Laboratory Tests Test 07/06/18 05:15 White Blood Count 42.5 x10^3/uL (4.0-11.0) Red Blood Count 3.73 x10^6/uL (3.50-5.40) Hemoglobin 12.2 g/dL (12.0-15.5) Hematocrit 37.8 % (36.0-47.0) Mean Corpuscular Volume 101 fL (79-100) Mean Corpuscular Hemoglobin 33 pg (25-35) Mean Corpuscular Hemoglobin Concent 32 g/dL (31-37) Red Cell Distribution Width 22.5 % (11.5-14.5) Platelet Count 951 x10^3/uL (140-400) Neutrophils (%) (Auto) 96 % (31-73) Lymphocytes (%) (Auto) 2 % (24-48) Monocytes (%) (Auto) 2 % (0-9) Eosinophils (%) (Auto) 0 % (0-3) Basophils (%) (Auto) 0 % (0-3) Neutrophils # (Auto) 40.9 x10^3uL (1.8-7.7) Lymphocytes # (Auto) 0.8 x10^3/uL (1.0-4.8) Monocytes # (Auto) 0.6 x10^3/uL (0.0-1.1) Eosinophils # (Auto) 0.0 x10^3/uL (0.0-0.7) Basophils # (Auto) 0.2 x10^3/uL (0.0-0.2) Laboratory Tests Test 07/06/18 05:15 White Blood Count 42.5 x10^3/uL (4.0-11.0) Red Blood Count 3.73 x10^6/uL (3.50-5.40) Hemoglobin 12.2 g/dL (12.0-15.5) Hematocrit 37.8 % (36.0-47.0) Mean Corpuscular Volume 101 fL (79-100) Mean Corpuscular Hemoglobin 33 pg (25-35) Mean Corpuscular Hemoglobin Concent 32 g/dL (31-37) Red Cell Distribution Width 22.5 % (11.5-14.5) Platelet Count 951 x10^3/uL (140-400) Neutrophils (%) (Auto) 96 % (31-73) Lymphocytes (%) (Auto) 2 % (24-48) Monocytes (%) (Auto) 2 % (0-9) Eosinophils (%) (Auto) 0 % (0-3) Basophils (%) (Auto) 0 % (0-3) Neutrophils # (Auto) 40.9 x10^3uL (1.8-7.7) Lymphocytes # (Auto) 0.8 x10^3/uL (1.0-4.8) Monocytes # (Auto) 0.6 x10^3/uL (0.0-1.1) Eosinophils # (Auto) 0.0 x10^3/uL (0.0-0.7) Basophils # (Auto) 0.2 x10^3/uL (0.0-0.2) Medications Active Scripts Medications Dose Route/Sig Max Daily Dose Days Date Category Multi Vitamin Daily (Multivitamin) 1 Each Tablet 1 Tab PO DAILY 07/02/18 Reported Miralax (Polyethylene Glycol 3350) Unknown Strength Powd.pack Unknown Dose PO BID 07/02/18 Reported Metoprolol Tartrate 25 Mg Tablet 1 Tab PO DAILY 07/02/18 Reported Duoneb 0.5-3(2.5) Mg/3 Ml (Albuterol/Ipratropium) 3 Ml Ampul.neb 3 Ml NEB Q6HRS PRN 07/02/18 Reported Vitamin B-12 (Cyanocobalamin (Vitamin B-12)) 1,000 Mcg Tablet 1 Tab PO DAILY 07/02/18 Reported Tramadol Hcl 50 Mg Tablet 100 Mg PO Q6HRS PRN 07/02/18 Reported Zofran Odt (Ondansetron) 4 Mg Tab.rapdis 0.5 Tab SL PRN Q6HRS PRN 05/06/18 Reported Biofreeze (Menthol) 118 Ml Gel..ml. 118 Ml TP PRN QID PRN 05/06/18 Reported [place] Saline (Sodium Chloride) 50 Ml Drops 1 Tu NS TID PRN 05/06/18 Reported Hydroxyurea 500 Mg Capsule 500 Mg PO BID 05/06/18 Reported Milk Of Magnesia (Magnesium Hydroxide) 400 Mg/5 Ml Oral.susp 30 Ml PO PRN DAILY PRN 05/06/18 Reported Maalox Maximum Strength Susp (Mag Hydrox/Al Hydrox/Simeth) 355 Ml Oral.susp 30 Ml PO PRN Q4HRS PRN 05/06/18 Reported Aquaphor Ointment (Mineral Oil/Hydrophil Petrolat) 396 Gm Oint...g. 396 Gm TP BID 05/06/18 Reported Furosemide 40 Mg Tablet 1 Tab PO DAILY 05/06/18 Reported Valium (Diazepam) 2 Mg Tablet 2 Mg PO PRN TID PRN 05/06/18 Reported Myrbetriq (Mirabegron) 25 Mg Tab.er.24h 25 Mg PO DAILY 05/06/18 Reported Acetaminophen Ext.release (Acetaminophen) 650 Mg Tablet.er 650 Mg PO Q6HRS 05/06/18 Reported Ibuprofen 400 Mg Tablet 400 Mg PO QID 05/06/18 Reported Colace (Docusate Sodium) 100 Mg Capsule 1 Cap PO DAILYWLUN 05/06/18 Reported Aspirin 81 Mg Tab.chew 1 Tab PO DAILY 05/06/18 Reported Vitamin B-12 (Cyanocobalamin (Vitamin B-12)) 1,000 Mcg Tablet 1 Tab PO DAILYWLUN 05/06/18 Reported Gabapentin (Gabapentin) 100 Mg Capsule 300 Mg PO QHS 05/06/18 Reported Prednisone 5 Mg Tablet 5 Mg PO DAILY 06/26/17 Reported Albuterol Sulfate Conc Neb Soln (Albuterol Sulfate) 2.5 Mg/0.5 Ml Vial.neb 2.5 Mg NEB PRN Q4HRS PRN 04/01/17 Reported Impression . IMPRESSION: 1. Abnormal x-ray compatible with pneumonia. 2. Previously abnormal CT of the chest revealing right upper lobe mass along with bronchiectasis in the lingular and right lower lobe. She has had previous workup by Dr. Miguel A Gan at [facility]. A CT-guided biopsy did not reveal evidence of malignancy. The patient has refused further workup. 3. Chronic lymphocytic leukemia. 4. Acute exacerbation of chronic obstructive pulmonary disease. 5. Leukocytosis. 6. Pneumonia. 7. Acute respiratory failure. 8. Protein malnutrition present upon admission. 9. P Vera Plan . SPOKE WITH DR LEELEE CARROLL TO SEE PT FOLLOW UP DR Angie GAN ONCE D/C RESP STATUS IS COMPENSATED ON RA WILL CONTINUE THE SAME ANTIBX JACKLYN BUCIO MD Jul 06, 2018 09:15
[2018-07-06] MEDS: FUROSEMIDE 40 MG TABLET. PO SCH (09:34)
[2018-07-06] MEDS: ASPIRIN CHEWABLE 81 MG TABLET. PO SCH (09:34)
[2018-07-06] MEDS: METOPROLOL TART IMMED RELEASE 25 MG TABLET. PO SCH (09:35)
[2018-07-06] MEDS: IBUPROFEN 400 MG TABLET. PO SCH ×4 (09:36→21:08)
[2018-07-06] MEDS: CEFDINIR 300 MG CAPSULE PO SCH ×2 (09:36→21:08)
[2018-07-06] MEDS: predniSONE 10 MG TABLET PO SCH (09:36)
[2018-07-06] MEDS: AZITHROMYCIN 250 MG TABLET. PO SCH (09:37)
[2018-07-06] MEDS: HYDROXYUREA 500 MG CAPSULE PO SCH ×2 (09:40→21:19)
[2018-07-06 11:00] VITALS: BP 122/59
[2018-07-06] MEDS: DOCUSATE SODIUM 100 MG CAPSULE. PO SCH (12:06)
[2018-07-06] MEDS: CYANOCOBALAMIN (VITAMIN B-12) 1,000 MCG TABLET. PO SCH (12:07)
--- NOTE | 2018-07-06 12:34 | PDOC ---
Provider Note Provider Note Hem-Onc consult: Assessment/Plan 1. P.Vera - Continue hydrea 1000 mg daily and f/u with Dr Salazar at . 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 WBC and plt are worse likely from sepsis, if remains high, may need to increase dose of hydrea in 2-3 weeks. 2. Lung mass. She has a known lung mass and it has been documented in the past that she did not want further workup. See dictation CONNOR MONTEZ MD Jul 06, 2018 12:34
--- NOTE | 2018-07-06 13:30 | PDOC2 ---
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 Wound began over achilles region. Second, medial wound occurred d/t maceration. Wound care has been following pt at [facility]. Wound bx done recently r/o malignancy. Wound cx revealed psuedomonas and pt recently completed 14d course of Levaquin. Wound debridement attempted on multiple occasions, unsuccessful d/t pt's c/o pain. Tendon present in past. Source of pressure believed to be from pt crossing her feet while asleep. Multiple different offloading techniques attempted. Coccyx wound healed out and reopened recently. Pt denies painful symptoms of the affected area. Past Medical History Cardiovascular: HTN Pulmonary: COPD, Other Heme/Onc: Cancer Past Surgical History Past Surgical History: Mastectomy, Tonsillectomy, Hysterectomy, Colon Resection Family History Family History: Cancer Social History ALCOHOL: occassional Drugs: None Current Problem List Problem List Problems Medical Problems: (1) Pneumonia Status: Acute (2) Sepsis Status: Acute Current Medications Current Medications Current Medications Ondansetron HCl (Zofran) 4 mg 1X ONCE IV Last administered on 07/01/18at 20:16 ; Start 07/01/18 at 20:15; Stop 07/01/18 at 20:16; Status DC Sodium Chloride 1,000 ml @ 1,000 mls/hr 1X ONCE IV Last administered on 07/01at 20:14; Start 07/01/18 at 20:15; Stop 07/01/18 at 21:14; Status DC Sodium Chloride 1,000 ml @ 1,000 mls/hr 1X ONCE IV Last administered on 07/01at 23:35; Start 07/01/18 at 21:30; Stop 07/01/18 at 22:29; Status DC Iohexol (Omnipaque 300 Mg/ml) 75 ml 1X ONCE IV Last administered on at 22:14; Start 07/01/18 at 22:00; Stop 07/01/18 at 22:01; Status DC Info (CONTRAST GIVEN -- Rx MONITORING) 1 each PRN DAILY PRN MC SEE COMMENTS; Start 07/01/18 at 21:45; Stop 07/03/18 at 21:44; Status DC Ceftriaxone Sodium (Rocephin) 1 gm 1X ONCE IVP Last administered on at 00:11; Start 07/01/18 at 23:00; Stop 07/01/18 at 23:01; Status DC Azithromycin 250 ml @ 250 mls/hr 1X ONCE IV Last administered on 07/02/18at 00:16; Start 07/01/18 at 23:30; Stop 07/02/18 at 00:29; Status DC Ibuprofen (Motrin) 400 mg QID PO Last administered on 07/06/18at 09:36; Start 07/02/18 at 09:00 Tramadol HCl (Ultram) 100 mg PRN Q6HRS PRN PO MODERATE PAIN Last administered on 07/05/18at 20:19; Start 07/02/18 at 02:00 Acetaminophen (Tylenol) 650 mg Q6HRS PO Last administered on 07/06/18at 12:07; Start 07/02/18 at 06:00 Ceftriaxone Sodium (Rocephin) 1 gm Q24H IVP Last administered on 07/03/18at 10: 54; Start 07/02/18 at 09:00; Stop 07/04/18 at 11:52; Status DC Azithromycin 250 mg/Sodium Chloride 250 ml @ 250 mls/hr Q24H IV Last administered on 07/02/18at 10:01; Start 07/02/18 at 10:00; Stop 07/03/18 at 08 :51; Status DC Ondansetron HCl (Zofran) 4 mg PRN Q6HRS PRN IV NAUSEA/VOMITING; Start at 09:30 Albuterol Sulfate (Ventolin Neb Soln) 2.5 mg PRN Q4HRS PRN NEB SHORTNESS OF BREATH Last administered on 07/05/18at 21:00; Start 07/02/18 at 09:30 Aspirin (Children'S Aspirin) 81 mg DAILY PO Last administered on 07/06/18at 09: 34; Start 07/02/18 at 10:00 Cyanocobalamin (Vitamin B-12) 1,000 mcg DAILY PO ; Start 07/03/18 at 09:00; Status UNV Cyanocobalamin (Vitamin B-12) 1,000 mcg DAILYWLUN PO Last administered on 07/06at 12:07; Start 07/02/18 at 12:00 Diazepam (Valium) 2 mg PRN TID PRN PO ANXIETY; Start 07/02/18 at 09:45 Docusate Sodium (Colace) 100 mg DAILYWLUN PO Last administered on 07/06/18at 12 :06; Start 07/02/18 at 12:00 Furosemide (Lasix) 40 mg DAILY PO Last administered on 07/06/18at 09:34; Start 07/02/18 at 10:00 Gabapentin (Neurontin) 300 mg QHS PO Last administered on 07/05/18at 20:17; Start 07/02/18 at 21:00 Albuterol Sulfate (Ventolin Neb Soln) 2.5 mg PRN Q6HRS PRN NEB SHORTNESS OF BREATH; Start 07/02/18 at 10:00; Status Cancel Metoprolol Tartrate (Lopressor) 25 mg DAILY PO Last administered on 07/06/18at 09:35; Start 07/02/18 at 10:00 Prednisone (Prednisone) 5 mg DAILY PO Last administered on 07/02/18at 10:05; Start 07/02/18 at 10:00; Stop 07/02/18 at 11:08; Status DC Hydroxyurea (Hydrea) 500 mg BID PO Last administered on 07/06/18at 09:40; Start 07/02/18 at 10:00 Prednisone (Prednisone) 30 mg DAILY PO Last administered on 07/03/18at 08:57; Start 07/03/18 at 09:00; Stop 07/04/18 at 08:45; Status DC Azithromycin (Zithromax) 250 mg DAILY PO Last administered on 07/06/18at 09:37 ; Start 07/03/18 at 09:00 Prednisone (Prednisone) 30 mg DAILY PO Last administered on 07/06/18 09:36; Start 07/04/18 at 09:00 Cefdinir (Omnicef) 300 mg BID PO Last administered on 07/06/18at 09:36; Start 07/04/18 at 21:00 Active Scripts Active Reported Multi Vitamin Daily (Multivitamin) 1 Each Tablet 1 Tab PO DAILY Miralax (Polyethylene Glycol 3350) Unknown Strength Powd.pack Unknown Dose PO BID Metoprolol Tartrate 25 Mg Tablet 1 Tab PO DAILY Duoneb 0.5-3(2.5) Mg/3 Ml (Albuterol/Ipratropium) 3 Ml Ampul.neb 3 Ml NEB Q6HRS PRN Vitamin B-12 (Cyanocobalamin (Vitamin B-12)) 1,000 Mcg Tablet 1 Tab PO DAILY Tramadol Hcl 50 Mg Tablet 100 Mg PO Q6HRS PRN Zofran Odt (Ondansetron) 4 Mg Tab.rapdis 0.5 Tab SL PRN Q6HRS PRN Biofreeze (Menthol) 118 Ml Gel..ml. 118 Ml TP PRN QID PRN [place] Saline (Sodium Chloride) 50 Ml Drops 1 Tu NS TID PRN Hydroxyurea 500 Mg Capsule 500 Mg PO BID Milk Of Magnesia (Magnesium Hydroxide) 400 Mg/5 Ml Oral.susp 30 Ml PO PRN DAILY PRN Maalox Maximum Strength Susp (Mag Hydrox/Al Hydrox/Simeth) 355 Ml Oral.susp 30 Ml PO PRN Q4HRS PRN Aquaphor Ointment (Mineral Oil/Hydrophil Petrolat) 396 Gm Oint...g. 396 Gm TP BID Furosemide 40 Mg Tablet 1 Tab PO DAILY Valium (Diazepam) 2 Mg Tablet 2 Mg PO PRN TID PRN Myrbetriq (Mirabegron) 25 Mg Tab.er.24h 25 Mg PO DAILY Acetaminophen Ext.release (Acetaminophen) 650 Mg Tablet.er 650 Mg PO Q6HRS Ibuprofen 400 Mg Tablet 400 Mg PO QID Colace (Docusate Sodium) 100 Mg Capsule 1 Cap PO DAILYWLUN Aspirin 81 Mg Tab.chew 1 Tab PO DAILY Vitamin B-12 (Cyanocobalamin (Vitamin B-12)) 1,000 Mcg Tablet 1 Tab PO DAILYWLUN Gabapentin (Gabapentin) 100 Mg Capsule 300 Mg PO QHS Prednisone 5 Mg Tablet 5 Mg PO DAILY Albuterol Sulfate Conc Neb Soln (Albuterol Sulfate) 2.5 Mg/0.5 Ml Vial.neb 2.5 Mg NEB PRN Q4HRS PRN Allergies Allergies: Coded Allergies: Sulfa (Sulfonamide Antibiotics) (Verified Allergy, Intermediate, Rash, ) codeine (Verified Allergy, Intermediate, 05/06/18) colloidal oatmeal (Verified Allergy, Intermediate, 05/06/18) cyclobenzaprine (Verified Allergy, Intermediate, 05/06/18) dimethicone (Verified Allergy, Intermediate, 05/06/18) fentanyl (Verified Allergy, Intermediate, Shortness of Air, 05/06/18) menthol (Verified Allergy, Intermediate, 05/06/18) morphine (Verified Allergy, Intermediate, 05/06/18) moxifloxacin (Verified Allergy, Intermediate, 05/06/18) PT CURRENTLY TAKING LEVAQUIN PO WITH NO PROBLEM soap (Verified Allergy, Intermediate, 05/06/18) ROS Review of System CONSTITUTIONAL: No fever or chills EYES: No recent changes SKIN: No rash or itching. Wound to right ankle as described above with painful symptoms to touch. CARDIOVASCULAR: No chest pain, syncope, palpitations, or edema RESPIRATORY: No SOB or cough GASTROINTESTINAL: No nausea, vomiting or abdominal pain NEUROLOGICAL: No headaches or weakness ENDOCRINE: No cold or heat intolerance GENITOURINARY: No urgency or frequency of urination MUSCULOSKELETAL: No back pain or joint pain LYMPHATICS: No enlarged lymph nodes PSYCHIATRIC: No anxiety or depression Physical Exam General: Alert, Oriented X3, Cooperative, No acute distress HEENT: Atraumatic, PERRLA, EOMI Lungs: Normal air movement Heart: Other (No pedal edema) Abdomen: Soft, No tenderness Skin: No rashes, Other (Coccyx wound measures 0.6x0.8x0.1cm. Wound bed pink and moist. Edges attached and not rolling. Surrounding tissue without erythema or edema. Minimal underlying adipose tissue present. Minimal serous drainage. No odor. Right heel, achilles region, with 3x3.5cm, unstageable pressure wound. Wound bed with 70% slough, 30% eschar. Edges attached and not rolling. Surrounding tissue with mild erythema. No edema present. Moderate serous drainage, no odor present. Second right ankle wound, medial, measures 1.5x2.3x0.1cm. Wound bed 100% slough. Edges attached and not rolling. Surrounding tissue with mild erythema. No edema present. Moderate amount of serous drainage present. No odor. ) Vitals VITALS Vital Signs Date Time Temp Pulse Resp B/P (MAP) Pulse Ox O2 Delivery O2 Flow Rate FiO2 07/06/18 11:00 97.4 71 18 122/59 (80) 95 Room Air 97.4 07/05/18 08:00 2.0 Labs Labs Laboratory Tests Test 07/06/18 05:15 White Blood Count 42.5 x10^3/uL (4.0-11.0) Red Blood Count 3.73 x10^6/uL (3.50-5.40) Hemoglobin 12.2 g/dL (12.0-15.5) Hematocrit 37.8 % (36.0-47.0) Mean Corpuscular Volume 101 fL (79-100) Mean Corpuscular Hemoglobin 33 pg (25-35) Mean Corpuscular Hemoglobin Concent 32 g/dL (31-37) Red Cell Distribution Width 22.5 % (11.5-14.5) Platelet Count 951 x10^3/uL (140-400) Neutrophils (%) (Auto) 96 % (31-73) Lymphocytes (%) (Auto) 2 % (24-48) Monocytes (%) (Auto) 2 % (0-9) Eosinophils (%) (Auto) 0 % (0-3) Basophils (%) (Auto) 0 % (0-3) Neutrophils # (Auto) 40.9 x10^3uL (1.8-7.7) Lymphocytes # (Auto) 0.8 x10^3/uL (1.0-4.8) Monocytes # (Auto) 0.6 x10^3/uL (0.0-1.1) Eosinophils # (Auto) 0.0 x10^3/uL (0.0-0.7) Basophils # (Auto) 0.2 x10^3/uL (0.0-0.2) Laboratory Tests Test 07/06/18 05:15 White Blood Count 42.5 x10^3/uL (4.0-11.0) Red Blood Count 3.73 x10^6/uL (3.50-5.40) Hemoglobin 12.2 g/dL (12.0-15.5) Hematocrit 37.8 % (36.0-47.0) Mean Corpuscular Volume 101 fL (79-100) Mean Corpuscular Hemoglobin 33 pg (25-35) Mean Corpuscular Hemoglobin Concent 32 g/dL (31-37) Red Cell Distribution Width 22.5 % (11.5-14.5) Platelet Count 951 x10^3/uL (140-400) Neutrophils (%) (Auto) 96 % (31-73) Lymphocytes (%) (Auto) 2 % (24-48) Monocytes (%) (Auto) 2 % (0-9) Eosinophils (%) (Auto) 0 % (0-3) Basophils (%) (Auto) 0 % (0-3) Neutrophils # (Auto) 40.9 x10^3uL (1.8-7.7) Lymphocytes # (Auto) 0.8 x10^3/uL (1.0-4.8) Monocytes # (Auto) 0.6 x10^3/uL (0.0-1.1) Eosinophils # (Auto) 0.0 x10^3/uL (0.0-0.7) Basophils # (Auto) 0.2 x10^3/uL (0.0-0.2) Assessment/Plan Assessment/Plan Unstageable right heel wounds - bx r/o malignancy - recent cx with pseudomonas, pt treated with round of Levaquin. Mild improvement of wound noted during abx therapy - pt scheduled with General Surgery this week for wound debridement. Pt missed appt d/t hospitalization. Will reschedule. - Cleanse and pat dry. Apply TheraHoney to wound beds. Cover with contact layer and foam adhesive. Change every other day or prn if dressing loose or saturated. - Rooke boot for offloading. Pt to wear at all times. - Will continue to follow pt on outpt basis Coccyx, stage 2 pressure ulcer - Cleanse and pat dry. Apply smith to wound bed and cover with foam adhesive. - Recommend Ahmet connelly for recliner at [facility] to help with offloading. - Will continue to follow pt on outpt basis Thank you for the consult on Mrs Haylee Cuevas. JUAN FRANCISCO [employer] Jul 06, 2018 13:30
--- NOTE | 2018-07-06 14:02 | PDOC2 ---
CONSULT Date of Consult Date of Consult DATE: 07/06/18 TIME: 13:52 Reason for Consult Reason for Consult: Leukocytosis Referring Physician Referring Physician: Dr Power Identification/Chief Complaint Chief Complaint Leukocytosis History of Present Illness Reason for Visit: Patient with long-standing history of polycythemia veraJAK2 positive.She has been on Hydrea for long time. She was on 1000 daily and recently was admitted to [facility] and received blood transfusion for hgb of 5.2. She was admitted again with sepsis and RLL pneumonia on 07/01/18. She was noted to have worsening leukocytosis WBC 42.5 and plt 951 on 07/06/18 and hence I was consulted. She is on hydrea 1000 mg daily. Past Medical History Cardiovascular: HTN Pulmonary: COPD, Other Heme/Onc: Cancer Past Surgical History Past Surgical History: Mastectomy, Tonsillectomy, Hysterectomy, Colon Resection Family History Family History: Cancer Social History ALCOHOL: occassional Drugs: None Current Problem List Problem List Problems Medical Problems: (1) Pneumonia Status: Acute (2) Sepsis Status: Acute Current Medications Current Medications Current Medications Ondansetron HCl (Zofran) 4 mg 1X ONCE IV Last administered on 07/01/18at 20:16 ; Start 07/01/18 at 20:15; Stop 07/01/18 at 20:16; Status DC Sodium Chloride 1,000 ml @ 1,000 mls/hr 1X ONCE IV Last administered on 07/01at 20:14; Start 07/01/18 at 20:15; Stop 07/01/18 at 21:14; Status DC Sodium Chloride 1,000 ml @ 1,000 mls/hr 1X ONCE IV Last administered on 07/01at 23:35; Start 07/01/18 at 21:30; Stop 07/01/18 at 22:29; Status DC Iohexol (Omnipaque 300 Mg/ml) 75 ml 1X ONCE IV Last administered on at 22:14; Start 07/01/18 at 22:00; Stop 07/01/18 at 22:01; Status DC Info (CONTRAST GIVEN -- Rx MONITORING) 1 each PRN DAILY PRN MC SEE COMMENTS; Start 07/01/18 at 21:45; Stop 07/03/18 at 21:44; Status DC Ceftriaxone Sodium (Rocephin) 1 gm 1X ONCE IVP Last administered on at 00:11; Start 07/01/18 at 23:00; Stop 07/01/18 at 23:01; Status DC Azithromycin 250 ml @ 250 mls/hr 1X ONCE IV Last administered on 07/02/18at 00:16; Start 07/01/18 at 23:30; Stop 07/02/18 at 00:29; Status DC Ibuprofen (Motrin) 400 mg QID PO Last administered on 07/06/18at 09:36; Start 07/02/18 at 09:00 Tramadol HCl (Ultram) 100 mg PRN Q6HRS PRN PO MODERATE PAIN Last administered on 07/05/18 20:19; Start 07/02/18 at 02:00 Acetaminophen (Tylenol) 650 mg Q6HRS PO Last administered on 07/06/18 12:07; Start 07/02/18 at 06:00 Ceftriaxone Sodium (Rocephin) 1 gm Q24H IVP Last administered on 07/03/18at 10: 54; Start 07/02/18 at 09:00; Stop 07/04/18 at 11:52; Status DC Azithromycin 250 mg/Sodium Chloride 250 ml @ 250 mls/hr Q24H IV Last administered on 07/02/18at 10:01; Start 07/02/18 at 10:00; Stop 07/03/18 at 08 :51; Status DC Ondansetron HCl (Zofran) 4 mg PRN Q6HRS PRN IV NAUSEA/VOMITING; Start at 09:30 Albuterol Sulfate (Ventolin Neb Soln) 2.5 mg PRN Q4HRS PRN NEB SHORTNESS OF BREATH Last administered on 07/05/18at 21:00; Start 07/02/18 at 09:30 Aspirin (Children'S Aspirin) 81 mg DAILY PO Last administered on 07/06/18at 09: 34; Start 07/02/18 at 10:00 Cyanocobalamin (Vitamin B-12) 1,000 mcg DAILY PO ; Start 07/03/18 at 09:00; Status UNV Cyanocobalamin (Vitamin B-12) 1,000 mcg DAILYWLUN PO Last administered on 07/06at 12:07; Start 07/02/18 at 12:00 Diazepam (Valium) 2 mg PRN TID PRN PO ANXIETY; Start 07/02/18 at 09:45 Docusate Sodium (Colace) 100 mg DAILYWLUN PO Last administered on 07/06/18at 12 :06; Start 07/02/18 at 12:00 Furosemide (Lasix) 40 mg DAILY PO Last administered on 07/06/18at 09:34; Start 07/02/18 at 10:00 Gabapentin (Neurontin) 300 mg QHS PO Last administered on 07/05/18at 20:17; Start 07/02/18 at 21:00 Albuterol Sulfate (Ventolin Neb Soln) 2.5 mg PRN Q6HRS PRN NEB SHORTNESS OF BREATH; Start 07/02/18 at 10:00; Status Cancel Metoprolol Tartrate (Lopressor) 25 mg DAILY PO Last administered on 07/06/18 09:35; Start 07/02/18 at 10:00 Prednisone (Prednisone) 5 mg DAILY PO Last administered on 07/02/18at 10:05; Start 07/02/18 at 10:00; Stop 07/02/18 at 11:08; Status DC Hydroxyurea (Hydrea) 500 mg BID PO Last administered on 07/06/18at 09:40; Start 07/02/18 at 10:00 Prednisone (Prednisone) 30 mg DAILY PO Last administered on 07/03/18at 08:57; Start 07/03/18 at 09:00; Stop 07/04/18 at 08:45; Status DC Azithromycin (Zithromax) 250 mg DAILY PO Last administered on 07/06/18 09:37 ; Start 07/03/18 at 09:00 Prednisone (Prednisone) 30 mg DAILY PO Last administered on 07/06/18 09:36; Start 07/04/18 at 09:00 Cefdinir (Omnicef) 300 mg BID PO Last administered on 07/06/18 09:36; Start 07/04/18 at 21:00 Active Scripts Active Reported Multi Vitamin Daily (Multivitamin) 1 Each Tablet 1 Tab PO DAILY Miralax (Polyethylene Glycol 3350) Unknown Strength Powd.pack Unknown Dose PO BID Metoprolol Tartrate 25 Mg Tablet 1 Tab PO DAILY Duoneb 0.5-3(2.5) Mg/3 Ml (Albuterol/Ipratropium) 3 Ml Ampul.neb 3 Ml NEB Q6HRS PRN Vitamin B-12 (Cyanocobalamin (Vitamin B-12)) 1,000 Mcg Tablet 1 Tab PO DAILY Tramadol Hcl 50 Mg Tablet 100 Mg PO Q6HRS PRN Zofran Odt (Ondansetron) 4 Mg Tab.rapdis 0.5 Tab SL PRN Q6HRS PRN Biofreeze (Menthol) 118 Ml Gel..ml. 118 Ml TP PRN QID PRN Desmet Saline (Sodium Chloride) 50 Ml Drops 1 Tu NS TID PRN Hydroxyurea 500 Mg Capsule 500 Mg PO BID Milk Of Magnesia (Magnesium Hydroxide) 400 Mg/5 Ml Oral.susp 30 Ml PO PRN DAILY PRN Maalox Maximum Strength Susp (Mag Hydrox/Al Hydrox/Simeth) 355 Ml Oral.susp 30 Ml PO PRN Q4HRS PRN Aquaphor Ointment (Mineral Oil/Hydrophil Petrolat) 396 Gm Oint...g. 396 Gm TP BID Furosemide 40 Mg Tablet 1 Tab PO DAILY Valium (Diazepam) 2 Mg Tablet 2 Mg PO PRN TID PRN Myrbetriq (Mirabegron) 25 Mg Tab.er.24h 25 Mg PO DAILY Acetaminophen Ext.release (Acetaminophen) 650 Mg Tablet.er 650 Mg PO Q6HRS Ibuprofen 400 Mg Tablet 400 Mg PO QID Colace (Docusate Sodium) 100 Mg Capsule 1 Cap PO DAILYWLUN Aspirin 81 Mg Tab.chew 1 Tab PO DAILY Vitamin B-12 (Cyanocobalamin (Vitamin B-12)) 1,000 Mcg Tablet 1 Tab PO DAILYWLUN Gabapentin (Gabapentin) 100 Mg Capsule 300 Mg PO QHS Prednisone 5 Mg Tablet 5 Mg PO DAILY Albuterol Sulfate Conc Neb Soln (Albuterol Sulfate) 2.5 Mg/0.5 Ml Vial.neb 2.5 Mg NEB PRN Q4HRS PRN Allergies Allergies: Coded Allergies: Sulfa (Sulfonamide Antibiotics) (Verified Allergy, Intermediate, Rash, ) codeine (Verified Allergy, Intermediate, 05/06/18) colloidal oatmeal (Verified Allergy, Intermediate, 05/06/18) cyclobenzaprine (Verified Allergy, Intermediate, 05/06/18) dimethicone (Verified Allergy, Intermediate, 05/06/18) fentanyl (Verified Allergy, Intermediate, Shortness of Air, 05/06/18) menthol (Verified Allergy, Intermediate, 05/06/18) morphine (Verified Allergy, Intermediate, 05/06/18) moxifloxacin (Verified Allergy, Intermediate, 05/06/18) PT CURRENTLY TAKING LEVAQUIN PO WITH NO PROBLEM soap (Verified Allergy, Intermediate, 05/06/18) ROS General: YES: Fatigue Physical Exam General: Alert, No acute distress HEENT: PERRLA Lungs: Normal air movement Heart: Normal S1, Normal S2 Abdomen: Normal bowel sounds Extremities: No clubbing Skin: No rashes Neuro: Cranial nerves 3-12 NL Psych/Mental Status: Mental status NL MUSCULOSKELETAL: No deformity Vitals VITALS Vital Signs Date Time Temp Pulse Resp B/P (MAP) Pulse Ox O2 Delivery O2 Flow Rate FiO2 07/06/18 11:00 97.4 71 18 122/59 (80) 95 Room Air 97.4 07/05/18 08:00 2.0 Labs Labs Laboratory Tests Test 07/06/18 05:15 White Blood Count 42.5 x10^3/uL (4.0-11.0) Red Blood Count 3.73 x10^6/uL (3.50-5.40) Hemoglobin 12.2 g/dL (12.0-15.5) Hematocrit 37.8 % (36.0-47.0) Mean Corpuscular Volume 101 fL (79-100) Mean Corpuscular Hemoglobin 33 pg (25-35) Mean Corpuscular Hemoglobin Concent 32 g/dL (31-37) Red Cell Distribution Width 22.5 % (11.5-14.5) Platelet Count 951 x10^3/uL (140-400) Neutrophils (%) (Auto) 96 % (31-73) Lymphocytes (%) (Auto) 2 % (24-48) Monocytes (%) (Auto) 2 % (0-9) Eosinophils (%) (Auto) 0 % (0-3) Basophils (%) (Auto) 0 % (0-3) Neutrophils # (Auto) 40.9 x10^3uL (1.8-7.7) Lymphocytes # (Auto) 0.8 x10^3/uL (1.0-4.8) Monocytes # (Auto) 0.6 x10^3/uL (0.0-1.1) Eosinophils # (Auto) 0.0 x10^3/uL (0.0-0.7) Basophils # (Auto) 0.2 x10^3/uL (0.0-0.2) Laboratory Tests Test 07/06/18 05:15 White Blood Count 42.5 x10^3/uL (4.0-11.0) Red Blood Count 3.73 x10^6/uL (3.50-5.40) Hemoglobin 12.2 g/dL (12.0-15.5) Hematocrit 37.8 % (36.0-47.0) Mean Corpuscular Volume 101 fL (79-100) Mean Corpuscular Hemoglobin 33 pg (25-35) Mean Corpuscular Hemoglobin Concent 32 g/dL (31-37) Red Cell Distribution Width 22.5 % (11.5-14.5) Platelet Count 951 x10^3/uL (140-400) Neutrophils (%) (Auto) 96 % (31-73) Lymphocytes (%) (Auto) 2 % (24-48) Monocytes (%) (Auto) 2 % (0-9) Eosinophils (%) (Auto) 0 % (0-3) Basophils (%) (Auto) 0 % (0-3) Neutrophils # (Auto) 40.9 x10^3uL (1.8-7.7) Lymphocytes # (Auto) 0.8 x10^3/uL (1.0-4.8) Monocytes # (Auto) 0.6 x10^3/uL (0.0-1.1) Eosinophils # (Auto) 0.0 x10^3/uL (0.0-0.7) Basophils # (Auto) 0.2 x10^3/uL (0.0-0.2) Assessment/Plan Assessment/Plan #1. Polycythemia vera. Hemoglobin now normal. I will continue hydroxyurea 1000 mg daily. Worsening leukocytosis and thrombocytosis could be related to underlying pneumonia and sepsis. Other differential diagnosis would also include development and progression to myelofibrosis. I would recommend continued monitoring on the current dose of hydroxyurea. Once his underlying infection resolves WBC and platelet counts may improve. If it does not improve then she would need further investigation with a bone marrow aspiration and biopsy. Her primary oncologist is at [facility] and have advised her to follow-up at [facility] with Dr. Salazar. 2. Pneumonia and sepsis. Antibiotics per Dr. Power. 3. Thrombocytosis and leukocytosis. This is related to underlying myeloproliferative disorder and partly reactive thrombocytosis from underlying pneumonia and sepsis.#1. Polycythemia vera. Hemoglobin now normal. I will continue hydroxyurea 1000 mg daily. Worsening leukocytosis and thrombocytosis could be related to underlying pneumonia and sepsis. Other differential diagnosis would also include development and progression to myelofibrosis. I would recommend continued monitoring on the current dose of hydroxyurea. Once his underlying infection resolves WBC and platelet counts may improve. If it does not improve then she would need further investigation with a bone marrow aspiration and biopsy. Her primary oncologist is at [facility] and have advised her to follow-up at [facility] with Dr. Salazar. CONNOR MONTEZ MD Jul 06, 2018 14:02
[2018-07-06 15:00] VITALS: BP 125/62
--- NOTE | 2018-07-06 18:11 | PN ---
DATE: 07/06/2018 LOCATION: She is in room 506. SUBJECTIVE: The patient is awake and alert, still complaining of right heel pain bitterly, overall feels much better and feels like she is able to return home. OBJECTIVE: VITAL SIGNS: Stable. She is afebrile. CHEST: Reveals decreased breath sounds, but clear. HEART: Regular. ABDOMEN: Benign. EXTREMITIES: Right heel was dressed. LABORATORY DATA: White count this morning; however, spiked up to 42,500 with a marked left shift. She has a platelet count of 951,000. She denies any diarrhea, but we will check a stool for C. diff because of the spike in the white count, but she has known underlying bone marrow disorder for many years with polycythemia vera and is followed by Dr. Rudd at the for the same and she is currently also on prednisone, which could affect her white count in addition. IMPRESSION: 1. Marked leukocytosis and thrombocytosis. 2. Pneumonia, clinically improving. 3. Right heel ulcer, awaiting wound care thoughts on the same. PLAN: Continue present care. At present, I am going to ask Hematology to see her in consultation and await wound care consultation as well as checking the stool for C. diff today. KYLE MCKOY MD DR: YOLANDA/brian JOB#: [id number] / [id number]
[2018-07-06 19:00] VITALS: BP 103/55
[2018-07-06] MEDS: GABAPENTIN 100 MG CAPSULE. PO SCH (21:09)
[2018-07-06 23:00] VITALS: BP 124/62
[2018-07-07 03:00] VITALS: BP 123/75
[2018-07-07] MEDS: ACETAMINOPHEN 325 MG TABLET. PO SCH (05:57)
[2018-07-07 07:00] VITALS: BP 123/74
[2018-07-07 07:02] LABS: BASO # 0.1 x10^3/uL (0.0-0.2); BASO % 0 % (0-3); EOS # 0.1 x10^3/uL (0.0-0.7); EOS % 0 % (0-3); HEMATOCRIT 35.9 % (36.0-47.0); HEMOGLOBIN 11.7 g/dL (12.0-15.5); LYMPH # 0.9 x10^3/uL (1.0-4.8); LYMPH % 3 % (24-48); MEAN CORPUSCULAR HEMOGLOBIN 33 pg (25-35); MEAN CORPUSCULAR HGB CONC 33 g/dL (31-37); MEAN CORPUSCULAR VOLUME 101 fL (79-100); MONO # 0.4 x10^3/uL (0.0-1.1); MONO % 1 % (0-9); NEUT # 31.2 x10^3uL (1.8-7.7); NEUT % 96 % (31-73); PLATELET COUNT 868 x10^3/uL (140-400); RED BLOOD COUNT 3.55 x10^6/uL (3.50-5.40); RED CELL DISTRIBUTION WIDTH 22.5 % (11.5-14.5); WHITE BLOOD COUNT 32.7 x10^3/uL (4.0-11.0)
--- NOTE | 2018-07-07 08:41 | PDOC ---
GENERAL General: dictation not working. will dc with close outpatient followup of leukocytosis. 7 more day antibiotics for pneumonia. will continue outpatient followup at wound care center for heel ulcer. VITAL SIGNS Vital Signs: Vital Signs Date Time Temp Pulse Resp B/P (MAP) Pulse Ox O2 Delivery O2 Flow Rate FiO2 07/07/18 07:00 97.7 74 18 123/74 (90) 95 Nasal Cannula 2.0 97.7 I & O I & O Intake and Output 07/07/18 07:01 Intake Total 880 ml Balance 880 ml Intake Oral 880 ml # Voids 3 ALLERGIES Allergies: Allergies Coded Allergies Type Severity Reaction Last Updated Verified Sulfa (Sulfonamide Antibiotics) Allergy Intermediate Rash 05/06/18 Yes codeine Allergy Intermediate 05/06/18 Yes colloidal oatmeal Allergy Intermediate 05/06/18 Yes cyclobenzaprine Allergy Intermediate 05/06/18 Yes dimethicone Allergy Intermediate 05/06/18 Yes fentanyl Allergy Intermediate Shortness of Air 05/06/18 Yes menthol Allergy Intermediate 05/06/18 Yes morphine Allergy Intermediate 05/06/18 Yes moxifloxacin Allergy Intermediate 05/06/18 Yes soap Allergy Intermediate 05/06/18 Yes MEDS Medications: Current Medications Medications (Trade) Dose Ordered Sig/Gee Start Time Stop Time Status Last Admin Dose Admin Acetaminophen (Tylenol) 650 mg Q6HRS 07/02/18 06:00 07/07/18 05:57 650 MG Albuterol Sulfate (Ventolin Neb Soln) 2.5 mg PRN Q6HRS PRN 07/02/18 10:00 Cancel Aspirin (Children'S Aspirin) 81 mg DAILY 07/02/18 10:00 07/06/18 09:34 81 MG Azithromycin (Zithromax) 250 mg DAILY 07/03/18 09:00 07/06/18 09:37 250 MG Azithromycin 250 mg/Sodium Chloride 250 ml @ 250 mls/hr Q24H 07/02/18 10:00 07/03/18 08:51 DC 07/02/18 10:01 250 MLS/HR Cefdinir (Omnicef) 300 mg BID 07/04/18 21:00 07/06/18 21:08 300 MG Ceftriaxone Sodium (Rocephin) 1 gm Q24H 07/02/18 09:00 07/04/18 11:52 DC 07/03/18 10:54 1 GM Cyanocobalamin (Vitamin B-12) 1,000 mcg DAILYWLUN 07/02/18 12:00 07/06/18 12:07 1,000 MCG Diazepam (Valium) 2 mg PRN TID PRN 07/02/18 09:45 Docusate Sodium (Colace) 100 mg DAILYWLUN 07/02/18 12:00 07/06/18 12:06 100 MG Furosemide (Lasix) 40 mg DAILY 07/02/18 10:00 07/06/18 09:34 40 MG Gabapentin (Neurontin) 300 mg QHS 07/02/18 21:00 07/06/18 21:09 300 MG Hydroxyurea (Hydrea) 500 mg BID 07/02/18 10:00 07/06/18 21:19 500 MG Ibuprofen (Motrin) 400 mg QID 07/02/18 09:00 07/06/18 21:08 400 MG Info (CONTRAST GIVEN -- Rx MONITORING) 1 each PRN DAILY PRN 07/01/18 21:45 07/03/18 21:44 DC Iohexol (Omnipaque 300 Mg/ml) 75 ml 1X ONCE 07/01/18 22:00 07/01/18 22:01 DC 07/01/18 22:14 75 ML Metoprolol Tartrate (Lopressor) 25 mg DAILY 07/02/18 10:00 07/06/18 09:35 25 MG Ondansetron HCl (Zofran) 4 mg PRN Q6HRS PRN 07/02/18 09:30 Prednisone (Prednisone) 30 mg DAILY 07/04/18 09:00 07/06/18 09:36 30 MG Sodium Chloride 1,000 ml @ 1,000 mls/hr 1X ONCE 07/01/18 21:30 07/01/18 22:29 DC 07/01/18 23:35 1,000 MLS/HR Tramadol HCl (Ultram) 100 mg PRN Q6HRS PRN 07/02/18 02:00 07/05/18 20:19 100 MG LAB Lab: Laboratory Tests Test 07/07/18 06:20 White Blood Count 32.7 x10^3/uL (4.0-11.0) Red Blood Count 3.55 x10^6/uL (3.50-5.40) Hemoglobin 11.7 g/dL (12.0-15.5) Hematocrit 35.9 % (36.0-47.0) Mean Corpuscular Volume 101 fL (79-100) Mean Corpuscular Hemoglobin 33 pg (25-35) Mean Corpuscular Hemoglobin Concent 33 g/dL (31-37) Red Cell Distribution Width 22.5 % (11.5-14.5) Platelet Count 868 x10^3/uL (140-400) Neutrophils (%) (Auto) 96 % (31-73) Lymphocytes (%) (Auto) 3 % (24-48) Monocytes (%) (Auto) 1 % (0-9) Eosinophils (%) (Auto) 0 % (0-3) Basophils (%) (Auto) 0 % (0-3) Neutrophils # (Auto) 31.2 x10^3uL (1.8-7.7) Lymphocytes # (Auto) 0.9 x10^3/uL (1.0-4.8) Monocytes # (Auto) 0.4 x10^3/uL (0.0-1.1) Eosinophils # (Auto) 0.1 x10^3/uL (0.0-0.7) Basophils # (Auto) 0.1 x10^3/uL (0.0-0.2) Nutrition Consultation Dietary Evaluation: Recommendations by RD: Increase Calorie Intake, Protein supplementation Comments: continue ensure tid REC mvi and vit c per protocal Expected Outcomes/Goals: to meet > 75% est nutr needs- goal ongoing Malnutrition Findings: Body Fat Depletion (Non Severe: Mod to Severe Weight Status: Underweight APPLKYLE MD Jul 07, 2018 08:41
[2018-07-07] MEDS: ASPIRIN CHEWABLE 81 MG TABLET. PO SCH (09:06)
[2018-07-07] MEDS: METOPROLOL TART IMMED RELEASE 25 MG TABLET. PO SCH (09:07)
[2018-07-07] MEDS: FUROSEMIDE 40 MG TABLET. PO SCH (09:07)
[2018-07-07] MEDS: predniSONE 10 MG TABLET PO SCH (09:08)
[2018-07-07] MEDS: CEFDINIR 300 MG CAPSULE PO SCH (09:08)
[2018-07-07] MEDS: IBUPROFEN 400 MG TABLET. PO SCH (09:08)
[2018-07-07] MEDS: AZITHROMYCIN 250 MG TABLET. PO SCH (09:09)
[2018-07-07] MEDS: HYDROXYUREA 500 MG CAPSULE PO SCH (09:19)
--- NOTE | 2018-07-07 09:35 | PDOC ---
PROGRESS NOTES Subjective Subjective HPI - f/u of Polycythemia vera ROS - no CP Objective Objective Vital Signs Date Time Temp Pulse Resp B/P (MAP) Pulse Ox O2 Delivery O2 Flow Rate FiO2 07/07/18 09:07 74 123/74 07/07/18 07:00 97.7 18 95 Nasal Cannula 2.0 97.7 Intake and Output 07/07/18 07:01 Intake Total 880 ml Balance 880 ml Intake Oral 880 ml # Voids 3 Physical Exam Heart: Normal S1, Normal S2 General: Alert, Oriented X3 Lungs: Clear to auscultation Neuro: Normal speech Psych/Mental Status: Mental status NL Assessment Assessment Problems Medical Problems: (1) Pneumonia Status: Acute (2) Sepsis Status: Acute Assessment/Plan #1. Polycythemia vera. I will continue hydroxyurea 1000 mg daily. Worsening leukocytosis and thrombocytosis could be related to underlying pneumonia and sepsis. Other differential diagnosis would also include development and progression to myelofibrosis. I would recommend continued monitoring on the current dose of hydroxyurea. Once his underlying infection resolves WBC and platelet counts may improve. If it does not improve then she would need further investigation with a bone marrow aspiration and biopsy. Her primary oncologist is at [facility] and have advised her to follow-up at [facility] with Dr. Salazar. Hb 11.7 2. Pneumonia and sepsis. Antibiotics per Dr. Garcia 3. Thrombocytosis and leukocytosis. This is related to underlying myeloproliferative disorder and partly reactive thrombocytosis from underlying pneumonia and sepsis.#1. Polycythemia vera. Hemoglobin now normal. I will continue hydroxyurea 1000 mg daily. Worsening leukocytosis and thrombocytosis could be related to underlying pneumonia and sepsis. Other differential diagnosis would also include development and progression to myelofibrosis. I would recommend continued monitoring on the current dose of hydroxyurea. Once his underlying infection resolves WBC and platelet counts may improve. If it does not improve then she would need further investigation with a bone marrow aspiration and biopsy. Her primary oncologist is at [facility] and have advised her to follow-up at [facility] with Dr. Salazar. WBC better at 32.2 and plt [phone] on 07/07/18 Comment Review of Relevant I have reviewed the following items raudel (where applicable) has been applied. Labs Laboratory Tests Test 07/06/18 05:15 07/07/18 06:20 White Blood Count 42.5 x10^3/uL (4.0-11.0) 32.7 x10^3/uL (4.0-11.0) Red Blood Count 3.73 x10^6/uL (3.50-5.40) 3.55 x10^6/uL (3.50-5.40) Hemoglobin 12.2 g/dL (12.0-15.5) 11.7 g/dL (12.0-15.5) Hematocrit 37.8 % (36.0-47.0) 35.9 % (36.0-47.0) Mean Corpuscular Volume 101 fL (79-100) 101 fL (79-100) Mean Corpuscular Hemoglobin 33 pg (25-35) 33 pg (25-35) Mean Corpuscular Hemoglobin Concent 32 g/dL (31-37) 33 g/dL (31-37) Red Cell Distribution Width 22.5 % (11.5-14.5) 22.5 % (11.5-14.5) Platelet Count 951 x10^3/uL (140-400) 868 x10^3/uL (140-400) Neutrophils (%) (Auto) 96 % (31-73) 96 % (31-73) Lymphocytes (%) (Auto) 2 % (24-48) 3 % (24-48) Monocytes (%) (Auto) 2 % (0-9) 1 % (0-9) Eosinophils (%) (Auto) 0 % (0-3) 0 % (0-3) Basophils (%) (Auto) 0 % (0-3) 0 % (0-3) Neutrophils # (Auto) 40.9 x10^3uL (1.8-7.7) 31.2 x10^3uL (1.8-7.7) Lymphocytes # (Auto) 0.8 x10^3/uL (1.0-4.8) 0.9 x10^3/uL (1.0-4.8) Monocytes # (Auto) 0.6 x10^3/uL (0.0-1.1) 0.4 x10^3/uL (0.0-1.1) Eosinophils # (Auto) 0.0 x10^3/uL (0.0-0.7) 0.1 x10^3/uL (0.0-0.7) Basophils # (Auto) 0.2 x10^3/uL (0.0-0.2) 0.1 x10^3/uL (0.0-0.2) Laboratory Tests Test 07/07/18 06:20 White Blood Count 32.7 x10^3/uL (4.0-11.0) Red Blood Count 3.55 x10^6/uL (3.50-5.40) Hemoglobin 11.7 g/dL (12.0-15.5) Hematocrit 35.9 % (36.0-47.0) Mean Corpuscular Volume 101 fL (79-100) Mean Corpuscular Hemoglobin 33 pg (25-35) Mean Corpuscular Hemoglobin Concent 33 g/dL (31-37) Red Cell Distribution Width 22.5 % (11.5-14.5) Platelet Count 868 x10^3/uL (140-400) Neutrophils (%) (Auto) 96 % (31-73) Lymphocytes (%) (Auto) 3 % (24-48) Monocytes (%) (Auto) 1 % (0-9) Eosinophils (%) (Auto) 0 % (0-3) Basophils (%) (Auto) 0 % (0-3) Neutrophils # (Auto) 31.2 x10^3uL (1.8-7.7) Lymphocytes # (Auto) 0.9 x10^3/uL (1.0-4.8) Monocytes # (Auto) 0.4 x10^3/uL (0.0-1.1) Eosinophils # (Auto) 0.1 x10^3/uL (0.0-0.7) Basophils # (Auto) 0.1 x10^3/uL (0.0-0.2) Microbiology 07/01/18 Blood Culture - Final, Complete NO GROWTH AFTER 5 DAYS 07/01/18 Urine Culture - Final, Complete 07/01/18 Urine Culture Result 1 (ADRIANA) - Final, Complete Medications Current Medications Ondansetron HCl (Zofran) 4 mg 1X ONCE IV Last administered on 07/01/18at 20:16 ; Start 07/01/18 at 20:15; Stop 07/01/18 at 20:16; Status DC Sodium Chloride 1,000 ml @ 1,000 mls/hr 1X ONCE IV Last administered on 07/01at 20:14; Start 07/01/18 at 20:15; Stop 07/01/18 at 21:14; Status DC Sodium Chloride 1,000 ml @ 1,000 mls/hr 1X ONCE IV Last administered on 07/01at 23:35; Start 07/01/18 at 21:30; Stop 07/01/18 at 22:29; Status DC Iohexol (Omnipaque 300 Mg/ml) 75 ml 1X ONCE IV Last administered on at 22:14; Start 07/01/18 at 22:00; Stop 07/01/18 at 22:01; Status DC Info (CONTRAST GIVEN -- Rx MONITORING) 1 each PRN DAILY PRN MC SEE COMMENTS; Start 07/01/18 at 21:45; Stop 07/03/18 at 21:44; Status DC Ceftriaxone Sodium (Rocephin) 1 gm 1X ONCE IVP Last administered on at 00:11; Start 07/01/18 at 23:00; Stop 07/01/18 at 23:01; Status DC Azithromycin 250 ml @ 250 mls/hr 1X ONCE IV Last administered on 07/02/18at 00:16; Start 07/01/18 at 23:30; Stop 07/02/18 at 00:29; Status DC Ibuprofen (Motrin) 400 mg QID PO Last administered on 07/07/18at 09:08; Start 07/02/18 at 09:00 Tramadol HCl (Ultram) 100 mg PRN Q6HRS PRN PO MODERATE PAIN Last administered on 07/05/18at 20:19; Start 07/02/18 at 02:00 Acetaminophen (Tylenol) 650 mg Q6HRS PO Last administered on 07/07/18at 05:57; Start 07/02/18 at 06:00 Ceftriaxone Sodium (Rocephin) 1 gm Q24H IVP Last administered on 07/03/18at 10: 54; Start 07/02/18 at 09:00; Stop 07/04/18 at 11:52; Status DC Azithromycin 250 mg/Sodium Chloride 250 ml @ 250 mls/hr Q24H IV Last administered on 07/02/18at 10:01; Start 07/02/18 at 10:00; Stop 07/03/18 at 08 :51; Status DC Ondansetron HCl (Zofran) 4 mg PRN Q6HRS PRN IV NAUSEA/VOMITING; Start at 09:30 Albuterol Sulfate (Ventolin Neb Soln) 2.5 mg PRN Q4HRS PRN NEB SHORTNESS OF BREATH Last administered on 07/05/18at 21:00; Start 07/02/18 at 09:30 Aspirin (Children'S Aspirin) 81 mg DAILY PO Last administered on 07/07/18 09: 06; Start 07/02/18 at 10:00 Cyanocobalamin (Vitamin B-12) 1,000 mcg DAILY PO ; Start 07/03/18 at 09:00; Status UNV Cyanocobalamin (Vitamin B-12) 1,000 mcg DAILYWLUN PO Last administered on 07/06at 12:07; Start 07/02/18 at 12:00 Diazepam (Valium) 2 mg PRN TID PRN PO ANXIETY; Start 07/02/18 at 09:45 Docusate Sodium (Colace) 100 mg DAILYWLUN PO Last administered on 07/06/18at 12 :06; Start 07/02/18 at 12:00 Furosemide (Lasix) 40 mg DAILY PO Last administered on 07/07/18at 09:07; Start 07/02/18 at 10:00 Gabapentin (Neurontin) 300 mg QHS PO Last administered on 07/06/18at 21:09; Start 07/02/18 at 21:00 Albuterol Sulfate (Ventolin Neb Soln) 2.5 mg PRN Q6HRS PRN NEB SHORTNESS OF BREATH; Start 07/02/18 at 10:00; Status Cancel Metoprolol Tartrate (Lopressor) 25 mg DAILY PO Last administered on 07/07/18at 09:07; Start 07/02/18 at 10:00 Prednisone (Prednisone) 5 mg DAILY PO Last administered on 07/02/18at 10:05; Start 07/02/18 at 10:00; Stop 07/02/18 at 11:08; Status DC Hydroxyurea (Hydrea) 500 mg BID PO Last administered on 07/07/18at 09:19; Start 07/02/18 at 10:00 Prednisone (Prednisone) 30 mg DAILY PO Last administered on 07/03/18at 08:57; Start 07/03/18 at 09:00; Stop 07/04/18 at 08:45; Status DC Azithromycin (Zithromax) 250 mg DAILY PO Last administered on 07/07/18at 09:09 ; Start 07/03/18 at 09:00 Prednisone (Prednisone) 30 mg DAILY PO Last administered on 07/07/18at 09:08; Start 07/04/18 at 09:00 Cefdinir (Omnicef) 300 mg BID PO Last administered on 07/07/18at 09:08; Start 07/04/18 at 21:00 Active Scripts Active Reported Multi Vitamin Daily (Multivitamin) 1 Each Tablet 1 Tab PO DAILY Miralax (Polyethylene Glycol 3350) Unknown Strength Powd.pack Unknown Dose PO BID Metoprolol Tartrate 25 Mg Tablet 1 Tab PO DAILY Duoneb 0.5-3(2.5) Mg/3 Ml (Albuterol/Ipratropium) 3 Ml Ampul.neb 3 Ml NEB Q6HRS PRN Vitamin B-12 (Cyanocobalamin (Vitamin B-12)) 1,000 Mcg Tablet 1 Tab PO DAILY Tramadol Hcl 50 Mg Tablet 100 Mg PO Q6HRS PRN Zofran Odt (Ondansetron) 4 Mg Tab.rapdis 0.5 Tab SL PRN Q6HRS PRN Biofreeze (Menthol) 118 Ml Gel..ml. 118 Ml TP PRN QID PRN [place] Saline (Sodium Chloride) 50 Ml Drops 1 Tu NS TID PRN Hydroxyurea 500 Mg Capsule 500 Mg PO BID Milk Of Magnesia (Magnesium Hydroxide) 400 Mg/5 Ml Oral.susp 30 Ml PO PRN DAILY PRN Maalox Maximum Strength Susp (Mag Hydrox/Al Hydrox/Simeth) 355 Ml Oral.susp 30 Ml PO PRN Q4HRS PRN Aquaphor Ointment (Mineral Oil/Hydrophil Petrolat) 396 Gm Oint...g. 396 Gm TP BID Furosemide 40 Mg Tablet 1 Tab PO DAILY Valium (Diazepam) 2 Mg Tablet 2 Mg PO PRN TID PRN Myrbetriq (Mirabegron) 25 Mg Tab.er.24h 25 Mg PO DAILY Acetaminophen Ext.release (Acetaminophen) 650 Mg Tablet.er 650 Mg PO Q6HRS Ibuprofen 400 Mg Tablet 400 Mg PO QID Colace (Docusate Sodium) 100 Mg Capsule 1 Cap PO DAILYWLUN Aspirin 81 Mg Tab.chew 1 Tab PO DAILY Vitamin B-12 (Cyanocobalamin (Vitamin B-12)) 1,000 Mcg Tablet 1 Tab PO DAILYWLUN Gabapentin (Gabapentin) 100 Mg Capsule 300 Mg PO QHS Prednisone 5 Mg Tablet 5 Mg PO DAILY Albuterol Sulfate Conc Neb Soln (Albuterol Sulfate) 2.5 Mg/0.5 Ml Vial.neb 2.5 Mg NEB PRN Q4HRS PRN Vitals/I & O Vital Sign - Last 24 Hours 07/06/18 07/06/18 07/06/18 07/06/18 09:35 11:00 15:00 19:00 Temp 97.4 97.9 97.9 97.4 97.9 97.9 Pulse 74 71 72 73 Resp 18 B/P (MAP) 136/70 122/59 (80) 125/62 (83) 103/55 (71) Pulse Ox 95 96 93 O2 Delivery Room Air Room Air Room Air 07/06/18 07/06/18 07/07/18 07/07/18 20:00 23:00 03:00 07:00 Temp 97.7 98.3 97.7 97.7 98.3 97.7 Pulse 66 72 74 Resp 18 B/P (MAP) 124/62 (82) 123/75 (91) 123/74 (90) Pulse Ox 97 94 95 O2 Delivery Room Air Room Air Room Air Nasal Cannula O2 Flow Rate 2.0 2.0 2.0 07/07/18 09:07 Pulse 74 B/P (MAP) 123/74 Intake and Output 07/06/18 07/06/18 07/07/18 15:01 23:01 07:01 Intake Total 760 ml 120 ml Balance 760 ml 120 ml Nutrition Consultation Dietary Evaluation: Recommendations by RD: Increase Calorie Intake, Protein supplementation Comments: continue ensure tid REC mvi and vit c per protocal Expected Outcomes/Goals: to meet > 75% est nutr needs- goal ongoing Malnutrition Findings: Body Fat Depletion (Non Severe: Mod to Severe Weight Status: Underweight CONNOR MONTEZ MD Jul 07, 2018 09:35
--- NOTE | 2018-07-07 10:32 | PDOC ---
PULMONARY PROGRESS NOTES Subjective PT NOT MORE SOA Vitals Vital Signs Date Time Temp Pulse Resp B/P (MAP) Pulse Ox O2 Delivery O2 Flow Rate FiO2 07/07/18 09:07 74 123/74 07/07/18 07:00 97.7 18 95 Nasal Cannula 2.0 97.7 ROS: No Nausea, No Chest Pain, No Abdominal Pain, No Increase Cough General: Alert, No acute distress Lungs: Clear Cardiovascular: S1, S2 Abdomen: Soft, Non-tender Neuro Exam: Alert Extremities: No Edema Skin: Warm Labs Laboratory Tests Test 07/06/18 05:15 07/07/18 06:20 White Blood Count 42.5 x10^3/uL (4.0-11.0) 32.7 x10^3/uL (4.0-11.0) Red Blood Count 3.73 x10^6/uL (3.50-5.40) 3.55 x10^6/uL (3.50-5.40) Hemoglobin 12.2 g/dL (12.0-15.5) 11.7 g/dL (12.0-15.5) Hematocrit 37.8 % (36.0-47.0) 35.9 % (36.0-47.0) Mean Corpuscular Volume 101 fL (79-100) 101 fL (79-100) Mean Corpuscular Hemoglobin 33 pg (25-35) 33 pg (25-35) Mean Corpuscular Hemoglobin Concent 32 g/dL (31-37) 33 g/dL (31-37) Red Cell Distribution Width 22.5 % (11.5-14.5) 22.5 % (11.5-14.5) Platelet Count 951 x10^3/uL (140-400) 868 x10^3/uL (140-400) Neutrophils (%) (Auto) 96 % (31-73) 96 % (31-73) Lymphocytes (%) (Auto) 2 % (24-48) 3 % (24-48) Monocytes (%) (Auto) 2 % (0-9) 1 % (0-9) Eosinophils (%) (Auto) 0 % (0-3) 0 % (0-3) Basophils (%) (Auto) 0 % (0-3) 0 % (0-3) Neutrophils # (Auto) 40.9 x10^3uL (1.8-7.7) 31.2 x10^3uL (1.8-7.7) Lymphocytes # (Auto) 0.8 x10^3/uL (1.0-4.8) 0.9 x10^3/uL (1.0-4.8) Monocytes # (Auto) 0.6 x10^3/uL (0.0-1.1) 0.4 x10^3/uL (0.0-1.1) Eosinophils # (Auto) 0.0 x10^3/uL (0.0-0.7) 0.1 x10^3/uL (0.0-0.7) Basophils # (Auto) 0.2 x10^3/uL (0.0-0.2) 0.1 x10^3/uL (0.0-0.2) Laboratory Tests Test 07/07/18 06:20 White Blood Count 32.7 x10^3/uL (4.0-11.0) Red Blood Count 3.55 x10^6/uL (3.50-5.40) Hemoglobin 11.7 g/dL (12.0-15.5) Hematocrit 35.9 % (36.0-47.0) Mean Corpuscular Volume 101 fL (79-100) Mean Corpuscular Hemoglobin 33 pg (25-35) Mean Corpuscular Hemoglobin Concent 33 g/dL (31-37) Red Cell Distribution Width 22.5 % (11.5-14.5) Platelet Count 868 x10^3/uL (140-400) Neutrophils (%) (Auto) 96 % (31-73) Lymphocytes (%) (Auto) 3 % (24-48) Monocytes (%) (Auto) 1 % (0-9) Eosinophils (%) (Auto) 0 % (0-3) Basophils (%) (Auto) 0 % (0-3) Neutrophils # (Auto) 31.2 x10^3uL (1.8-7.7) Lymphocytes # (Auto) 0.9 x10^3/uL (1.0-4.8) Monocytes # (Auto) 0.4 x10^3/uL (0.0-1.1) Eosinophils # (Auto) 0.1 x10^3/uL (0.0-0.7) Basophils # (Auto) 0.1 x10^3/uL (0.0-0.2) Medications Active Scripts Medications Dose Route/Sig Max Daily Dose Days Date Category Multi Vitamin Daily (Multivitamin) 1 Each Tablet 1 Tab PO DAILY 07/02/18 Reported Miralax (Polyethylene Glycol 3350) Unknown Strength Powd.pack Unknown Dose PO BID 07/02/18 Reported Metoprolol Tartrate 25 Mg Tablet 1 Tab PO DAILY 07/02/18 Reported Duoneb 0.5-3(2.5) Mg/3 Ml (Albuterol/Ipratropium) 3 Ml Ampul.neb 3 Ml NEB Q6HRS PRN 07/02/18 Reported Vitamin B-12 (Cyanocobalamin (Vitamin B-12)) 1,000 Mcg Tablet 1 Tab PO DAILY 07/02/18 Reported Tramadol Hcl 50 Mg Tablet 100 Mg PO Q6HRS PRN 07/02/18 Reported Zofran Odt (Ondansetron) 4 Mg Tab.rapdis 0.5 Tab SL PRN Q6HRS PRN 05/06/18 Reported Biofreeze (Menthol) 118 Ml Gel..ml. 118 Ml TP PRN QID PRN 05/06/18 Reported [place] Saline (Sodium Chloride) 50 Ml Drops 1 Tu NS TID PRN 05/06/18 Reported Hydroxyurea 500 Mg Capsule 500 Mg PO BID 05/06/18 Reported Milk Of Magnesia (Magnesium Hydroxide) 400 Mg/5 Ml Oral.susp 30 Ml PO PRN DAILY PRN 05/06/18 Reported Maalox Maximum Strength Susp (Mag Hydrox/Al Hydrox/Simeth) 355 Ml Oral.susp 30 Ml PO PRN Q4HRS PRN 05/06/18 Reported Aquaphor Ointment (Mineral Oil/Hydrophil Petrolat) 396 Gm Oint...g. 396 Gm TP BID 05/06/18 Reported Furosemide 40 Mg Tablet 1 Tab PO DAILY 05/06/18 Reported Valium (Diazepam) 2 Mg Tablet 2 Mg PO PRN TID PRN 05/06/18 Reported Myrbetriq (Mirabegron) 25 Mg Tab.er.24h 25 Mg PO DAILY 05/06/18 Reported Acetaminophen Ext.release (Acetaminophen) 650 Mg Tablet.er 650 Mg PO Q6HRS 05/06/18 Reported Ibuprofen 400 Mg Tablet 400 Mg PO QID 05/06/18 Reported Colace (Docusate Sodium) 100 Mg Capsule 1 Cap PO DAILYWLUN 05/06/18 Reported Aspirin 81 Mg Tab.chew 1 Tab PO DAILY 05/06/18 Reported Vitamin B-12 (Cyanocobalamin (Vitamin B-12)) 1,000 Mcg Tablet 1 Tab PO DAILYWLUN 05/06/18 Reported Gabapentin (Gabapentin) 100 Mg Capsule 300 Mg PO QHS 05/06/18 Reported Prednisone 5 Mg Tablet 5 Mg PO DAILY 06/26/17 Reported Albuterol Sulfate Conc Neb Soln (Albuterol Sulfate) 2.5 Mg/0.5 Ml Vial.neb 2.5 Mg NEB PRN Q4HRS PRN 04/01/17 Reported Impression . IMPRESSION: 1. Abnormal x-ray compatible with pneumonia. 2. Previously abnormal CT of the chest revealing right upper lobe mass along with bronchiectasis in the lingular and right lower lobe. She has had previous workup by Dr. Miguel A Gan at [facility]. A CT-guided biopsy did not reveal evidence of malignancy. The patient has refused further workup. 3. Chronic lymphocytic leukemia. 4. Acute exacerbation of chronic obstructive pulmonary disease. 5. Leukocytosis. 6. Pneumonia. 7. Acute respiratory failure. 8. Protein malnutrition present upon admission. 9. P Vera Plan . SPOKE WITH DR LEELEE CARROLL TO SEE PT FOLLOW UP DR Angie GAN ONCE D/C RESP STATUS IS COMPENSATED ON RA WILL CONTINUE THE SAME ANTIBX JACKLYN BUCIO MD Jul 07, 2018 10:32
[2018-07-07 11:00] VITALS: BP 103/65
== END 2018-07-07 12:00 | DRG 871 ==
LOC: ER 19:49 → 5 NORTH 23:00
PROVIDERS: ADMIT Family Medicine; ATTEND Family Medicine
DX: A41.9 Sepsis, unspecified organism (principal); L89.613 Pressure ulcer of right heel, stage 3; J18.9 Pneumonia, unspecified organism; J96.00 Acute respiratory failure, unspecified whether with hypoxia or hypercapnia; C91.10 Chronic lymphocytic leukemia of B-cell type not having achieved remission; E46 Unspecified protein-calorie malnutrition; J44.0 Chronic obstructive pulmonary disease with (acute) lower respiratory infection; J44.1 Chronic obstructive pulmonary disease with (acute) exacerbation; D75.1 Secondary polycythemia; F32.9 Major depressive disorder, single episode, unspecified; I10 Essential (primary) hypertension; G43.909 Migraine, unspecified, not intractable, without status migrainosus; F41.9 Anxiety disorder, unspecified; K21.9 Gastro-esophageal reflux disease without esophagitis; L89.152 Pressure ulcer of sacral region, stage 2; Z85.118 Personal history of other malignant neoplasm of bronchus and lung; Z85.3 Personal history of malignant neoplasm of breast; Z87.891 Personal history of nicotine dependence; Z90.11 Acquired absence of right breast and nipple; Z90.710 Acquired absence of both cervix and uterus; Z99.81 Dependence on supplemental oxygen; Z87.440 Personal history of urinary (tract) infections; Z88.6 Allergy status to analgesic agent; Z88.1 Allergy status to other antibiotic agents; Z88.2 Allergy status to sulfonamides; Z88.8 Allergy status to other drugs, medicaments and biological substances
CPT/HCPCS: 36415; 36600; 71045; 74177; 80048; 80053; 81001; 82805; 83605; 84484; 85007; 85025; 87040; 87086; 87641; 93005; 96361; 96374; 96375; J0456; J0696; J2405; J7030; J7050; J7512; J7613; Q0144; Q9967; 99285-25

== ENCOUNTER 2018-07-24 22:32 | Emergency (ER) | payer MEDICARE ==
[~2018-07-24 22:32] MED LIST changes: +CYAN-25 PO; -CYAN10005 PO; +IPRA3AMP29 NEB; +MINE50OI TP; +MULT-245 PO; -PANT40TA3 PO; +PANT40TA77 PO; +POLY17PO29 PO
--- NOTE | 2018-07-25 01:57 | RAD ---
INDICATION: headache after fall COMPARISON: March 2017 TECHNIQUE: Axial CT images obtained through the head without intravenous contrast. One or more of the following individualized dose reduction techniques were utilized for this examination: 1. Automated exposure control; 2. Adjustment of the mA and/or kV according to patient size; 3. Use of iterative reconstruction technique. FINDINGS: No intracranial hemorrhage. No midline shift. Basal cisterns patents. Ventricles and sulci are globally prominent. No acute osseous abnormality. Orbits and paranasal sinuses unremarkable. Scattered foci of low attenuation within the white matter. IMPRESSION: 1. No acute intracranial hemorrhage. 2. Scattered regions of low attenuation within the white matter. Non-specific in nature but frequently secondary to chronic small vessel ischemic disease. 3. Prominence of ventricles and sulci which is frequently secondary to age related volume loss. Electronically signed by: Daquan Ramirez MD (07/25/2018 1:52 AM) [id number]
--- NOTE | 2018-07-25 02:08 | RAD ---
INDICATION: pelvis pain after fall COMPARISON: CT July 01, 2018 IMPRESSION: Lumbar spine: 3 views obtained. Severe degenerative changes with scoliotic curvature. Grade 1 anterolisthesis of L4 on 5 and L3 on 4. There is mild bowing of the superior endplate of L2. Would correlate with point tenderness in the region to ensure that there is not a mild compression fracture. Pelvis: Single view obtained. Degenerative changes are identified. Lucency is seen at the right femoral neck region. Difficult to tell if this is secondary to a nondisplaced fracture through the region or if this is related to a skin fold. Dedicated hip radiographs could be obtained to further evaluate. Electronically signed by: Daquan Ramirez MD (07/25/2018 2:04 AM) [id number]
[2018-07-25 04:15] LABS: BACTERIA,URINE 0 /HPF (0-FEW); BILIRUBIN,URINE NEGATIVE (NEG); CLARITY,URINE CLEAR; COLOR,URINE YELLOW; NITRITE,URINE NEGATIVE (NEG); PROTEIN,URINE NEGATIVE (NEG-TRACE); RBC,URINE 0 /HPF (0-2); SQUAMOUS EPITHELIAL CELL,UR OCC /LPF; UROBILINOGEN,URINE 0.2 mg/dL (0.2 mg/dL); WBC,URINE OCC /HPF (0-4)
[2018-07-25 04:16] LABS: AMORPHOUS SEDIMENT,UR PRESENT /HPF; HYALINE CASTS, URINE MANY /HPF
== END 2018-07-25 03:00 | disposition home or self-care (01) ==
LOC: ER 22:32
DX: R10.2 Pelvic and perineal pain (principal); R51 Headache; Z53.21 Procedure and treatment not carried out due to patient leaving prior to being seen by health care provider
CPT/HCPCS: 70450; 72100; 72170; 81001

== ENCOUNTER 2019-04-06 06:40 | Inpatient (IN) | payer MEDICARE ==
[~2019-04-06] VITALS: Ht 154.9 cm; Wt 33.1 kg
[~2019-04-06 06:40] MED LIST changes: -MELA3TAB2 PO; +MELA3TAB56 PO
--- NOTE | 2019-04-06 07:14 | PHYS DOC ---
Past Medical History Past Medical History: Anxiety, Bronchitis, Cancer, COPD, Depression, GERD, Hypertension, Migraines, Pneumonia, UTI, Other Additional Past Medical Histor: ULCER; BRONCHIECTASIS; POLYCYTHEMIA VERA, DUODENAL & BREAST CA Past Surgical History: Hysterectomy Additional Past Surgical Histo: RIGHT MASTECTOMY; COLON RESECTION Alcohol Use: None Drug Use: None Adult General Chief Complaint Chief Complaint: MECHANICAL FALL HPI HPI Patient is an 89-year-old female who arrives via EMS from nursing facility after reportedly falling sometime last night. Patient had responded to ER nurse that she has pain over her entire body at a 10 out of 10 but she is not providing any answers to me. When asked by nurse if she had neck pain, she stated yes at a 10 out of 10. Additional history is limited as patient is not providing any history.[] Review of Systems Review of Systems Constitutional: Denies fever or chills [] Respiratory: No reported shortness of breath [] Cardiovascular: No additional information not addressed in HPI [] GI: No reported vomiting or diarrhea [] Musculoskeletal: Positive report of back and neck pain [] Neurologic: Positive reported headache [] All other systems were reviewed and found to be within normal limits, except as documented in this note. Current Medications Current Medications Current Medications Medications (Trade) Dose Ordered Sig/Gee Start Time Stop Time Status Last Admin Dose Admin Hydromorphone HCl (Dilaudid) 0.25 mg 1X ONCE 04/06/19 10:45 04/06/19 10:46 DC Ondansetron HCl (Zofran) 4 mg 1X ONCE 04/06/19 10:45 04/06/19 10:46 DC Allergies Allergies Allergies Coded Allergies Type Severity Reaction Last Updated Verified Sulfa (Sulfonamide Antibiotics) Allergy Intermediate Rash 05/06/18 Yes codeine Allergy Intermediate 05/06/18 Yes colloidal oatmeal Allergy Intermediate 05/06/18 Yes cyclobenzaprine Allergy Intermediate 05/06/18 Yes dimethicone Allergy Intermediate 05/06/18 Yes fentanyl Allergy Intermediate Shortness of Air 05/06/18 Yes menthol Allergy Intermediate 05/06/18 Yes morphine Allergy Intermediate 05/06/18 Yes moxifloxacin Allergy Intermediate 05/06/18 Yes soap Allergy Intermediate 05/06/18 Yes Physical Exam Physical Exam Constitutional: No acute distress, non-toxic appearance. [] HENT: Normocephalic, with 2 lacerations noted to the scalp, one measuring approx imately 2 and half centimeters in the left parietal region and the other one measuring approximately 2 cm in the left parieto-occipital region, both with fairly sharp margins, extending through subcutaneous tissue area did bilateral external ears normal, oropharynx moist, no oral exudates, nose normal. [] Eyes: PERRLA, EOMI, conjunctiva normal, no discharge. [] Neck: Cervical collar in place. [] Cardiovascular: Regular rate and rhythm[] Lungs & Thorax: Rhonchi are noted in the right lung base to auscultation [] Abdomen: Bowel sounds normal, soft, no tenderness. [] Skin: Warm, dry, no erythema, no rash. [] Extremities: No tenderness, no cyanosis, no clubbing, no evidence of trauma. [] Neurologic: Awake and alert, no obvious focal deficits noted. [] Current Patient Data Vital Signs Vital Signs Date Time Temp Pulse Resp B/P (MAP) Pulse Ox O2 Delivery O2 Flow Rate FiO2 04/06/19 10:30 80 04/06/19 09:30 92 04/06/19 06:40 98.6 16 123/60 (81) Room Air 98.6 Lab Values Laboratory Tests Test 04/06/19 08:55 White Blood Count 22.2 x10^3/uL (4.0-11.0) H Red Blood Count 4.30 x10^6/uL (3.50-5.40) Hemoglobin 11.3 g/dL (12.0-15.5) L Hematocrit 36.5 % (36.0-47.0) Mean Corpuscular Volume 85 fL (79-100) Mean Corpuscular Hemoglobin 26 pg (25-35) Mean Corpuscular Hemoglobin Concent 31 g/dL (31-37) Red Cell Distribution Width 28.6 % (11.5-14.5) H Platelet Count 893 x10^3/uL (140-400) H Neutrophils (%) (Auto) 94 % (31-73) H Lymphocytes (%) (Auto) 3 % (24-48) L Monocytes (%) (Auto) 1 % (0-9) Eosinophils (%) (Auto) 1 % (0-3) Basophils (%) (Auto) 1 % (0-3) Neutrophils # (Auto) 20.9 x10^3/uL (1.8-7.7) H Lymphocytes # (Auto) 0.7 x10^3/uL (1.0-4.8) L Monocytes # (Auto) 0.3 x10^3/uL (0.0-1.1) Eosinophils # (Auto) 0.2 x10^3/uL (0.0-0.7) Basophils # (Auto) 0.1 x10^3/uL (0.0-0.2) Platelet Estimate Pending Urine Collection Type U cath Urine Color Yellow Urine Clarity Clear Urine pH 6.0 Urine Specific [place] 1.020 Urine Protein Negative mg/dL (NEG-TRACE) Urine Glucose (UA) Negative mg/dL (NEG) Urine Ketones (Stick) Negative mg/dL (NEG) Urine Blood Negative (NEG) Urine Nitrite Negative (NEG) Urine Bilirubin Negative (NEG) Urine Urobilinogen Dipstick 0.2 mg/dL (0.2 mg/dL) Urine Leukocyte Esterase Negative (NEG) Urine RBC 0 /HPF (0-2) Urine WBC Occ /HPF (0-4) Urine Amorphous Sediment Present /HPF Urine Bacteria 0 /HPF (0-FEW) Sodium Level 136 mmol/L (136-145) Potassium Level 5.2 mmol/L (3.5-5.1) H Chloride Level 101 mmol/L (98-107) Carbon Dioxide Level 27 mmol/L (21-32) Anion Gap 8 (6-14) Blood Urea Nitrogen 26 mg/dL (7-20) H Creatinine 0.6 mg/dL (0.6-1.0) Estimated GFR (Cockcroft-Gault) 94.3 BUN/Creatinine Ratio 43 (6-20) H Glucose Level 98 mg/dL (70-99) Calcium Level 9.1 mg/dL (8.5-10.1) Magnesium Level 2.3 mg/dL (1.8-2.4) Total Bilirubin 0.8 mg/dL (0.2-1.0) Aspartate Amino Transferase (AST) 13 U/L (15-37) L Alanine Aminotransferase (ALT) 8 U/L (14-59) L Alkaline Phosphatase 95 U/L (46-116) Troponin I Quantitative < 0.017 ng/mL (0.000-0.055) Total Protein 6.7 g/dL (6.4-8.2) Albumin 2.9 g/dL (3.4-5.0) L Albumin/Globulin Ratio 0.8 (1.0-1.7) L Laboratory Tests 04/06/19 08:55 Laboratory Tests 04/06/19 08:55 EKG EKG [] Radiology/Procedures Radiology/Procedures [] Impressions: PATIENT: GREGG BHAKTA ACCOUNT: [id number] : 1930 LOCATION: ER AGE: 89 SEX: F EXAM STATUS: REG ER ORD. PHYSICIAN: NIELS PELLETIER Jr. DO REASON: fall PROCEDURE: CT HEAD AND CERVICAL SPINE WO Examination: CT LUMBAR SPINE WO CONTRAST, CT HEAD AND CERVICAL SPINE WO, CT THORACIC SPINE WO CONTRAST History: Fall, pain, right mastectomy, colon cancer Comparison/Correlation: 07/25/2018 CT head without contrast Findings: Axial images of the head, cervical spine, thoracic spine, lumbar spine were obtained without contrast. Sagittal and coronal reformatted images of the spine were provided. Atrophy is present. Chronic ischemic changes bilaterally as noted. No intracranial hemorrhage, midline shift or mass effect. The globes and optic nerves are unremarkable. No depressed skull fracture. Lytic lesion involving the base of the odontoid is noted along with pannus. This has been reported on previous CT of the head and cervical spine without contrast report of 12/30/2013. Moderate C4-5 disc space narrowing is present. Severe C5-6 and C6-7 disc space narrowing is present. Minimal retrolisthesis of C5 in relation to C6 is likely related to degenerative change. Neural foraminal narrowing is present at the left C5-6 region of significant severity and of moderate severity at C6-7 on the left. Facet joint degenerative changes of the cervical spine are notable on the right. Moderate T6 compression fracture of the up to 50 percent is present. Alignment of the thoracic spine is normal. COPD and pulmonary hyperinflation is noted. Notable increase in the patient's known right upper lung mass is identified with anteroposterior dimension of 4.2 cm x 5.4 cm longitudinal dimension. This represents an increase compared previous exam by nearly 1.6 cm anteroposterior and 0.4 cm increased size longitudinal. Multiple new right upper lung pulmonary nodules are present. Severe L2-3 disc space narrowing is present. Moderate to severe L3-4 disc space narrowing is present. Minimal anterolisthesis of L3 in relation to L4 is present. Concentric disc bulge at L3-4 and L4-5 is present. Spinal canal stenosis at L3-4 is severe. Advanced facet joint degenerative changes of the lumbar spine are present. Facet joint degenerative changes from L2 to L4 noted bilaterally. Osteopenia is present. Impression: No intracranial hemorrhage. Significant degenerative changes of the cervical spine and lumbar spine again seen. T6 vertebral body compression fracture is new since 06/26/2017 CTA of the chest and likely related to osteoporosis. It is otherwise of indeterminate age. No fracture fragments. No retropulsion into the spinal canal. Interval increase in size of the patient's known right upper lung mass with new pulmonary nodules. The lungs are not fully included for purposes of this exam. Primary neoplastic process and development of metastases are of concern. Correlate with history. PQRS Compliance Statement: One or more of the following individualized dose reduction techniques were utilized for this examination: 1. Automated exposure control 2. Adjustment of the mA and/or kV according to patient size 3. Use of iterative reconstruction technique Electronically signed by: Esteban Perry MD (04/06/2019 9:37 AM) [facility] PROCEDURE: PORTABLE CHEST 1V PORTABLE CHEST 1V History: Chest trauma, fall Comparison: July 01, 2018 Findings: Single view of the chest is submitted. There is again coarse interstitial opacity bilaterally. There is again right upper lobe mass near apex, present previously although size more accurately compared by CT. Cardiac silhouette is enlarged although unchanged. There is a somewhat tortuous thoracic aorta, atherosclerotic calcification near arch. No significant pleural fluid or pneumothorax is identified. Impression: 1. There is again right upper lobe mass near the apex, size more accurately compared by CT. There is coarse interstitial opacity likely component of interstitial lung disease. Electronically signed by: Kyle Vallecillo MD (04/06/2019 7:41 AM) [facility] Course & Med Decision Making Course & Med Decision Making Pertinent Labs and Imaging studies reviewed. (See chart for details) Laceration Repair by me: Anesthesia: 1% lidocaine with epinephrine locally Location: Scalp Tendon/Joint/Nerves: No injury Foreign body: None detected after copious irrigation and exploration Technique: A total of 3 chaitanya were placed in laceration #1; a total of 2 chaitanya were placed in laceration #2. Good reapproximation of wound margins was achieved with both lacerations. Complexity: No subcutaneous sutures/mucosal repair/edge excision Post Closure Length: Laceration #1 2.5 cm; laceration #2 2 cm Patient's bleeding was easily controlled in the department and there is no indication of anemia. No evidence of compartment syndrome, neurologic injury, vascular injury, open joint, tendon laceration, or foreign body. Patient is appropriate for outpatient follow up. 48 hour wound check. Scar minimization instructions given. Dragon Disclaimer Dragon Disclaimer This electronic medical record was generated, in whole or in part, using a voice recognition dictation system. Departure Departure Impression: Primary Impression: Thoracic compression fracture Additional Impressions: Scalp laceration Head injury Fall Disposition: 09 ADMITTED INPATIENT Admitting Physician: Kyle Power Condition: IMPROVED Referrals: KYLE POWER MD (PCP) Problem Qualifiers Primary Impression: Thoracic compression fracture Encounter type: initial encounter Thoracic vertebra fracture level: T6 Qualified Codes: S22.050A - Wedge compression fracture of t5-T6 vertebra, initial encounter for closed fracture Additional Impressions: Scalp laceration Encounter type: initial encounter Qualified Codes: S01.01XA - Laceration without foreign body of scalp, initial encounter Head injury Encounter type: initial encounter Qualified Codes: S09.90XA - Unspecified injury of head, initial encounter Fall Encounter type: initial encounter Qualified Codes: W19.XXXA - Unspecified fall, initial encounter NIELS PELLETIER Jr. DO Apr 06, 2019 07:14
--- NOTE | 2019-04-06 07:43 | RAD ---
PORTABLE CHEST 1V History: Chest trauma, fall Comparison: July 01, 2018 Findings: Single view of the chest is submitted. There is again coarse interstitial opacity bilaterally. There is again right upper lobe mass near apex, present previously although size more accurately compared by CT. Cardiac silhouette is enlarged although unchanged. There is a somewhat tortuous thoracic aorta, atherosclerotic calcification near arch. No significant pleural fluid or pneumothorax is identified. Impression: 1. There is again right upper lobe mass near the apex, size more accurately compared by CT. There is coarse interstitial opacity likely component of interstitial lung disease. Electronically signed by: Jaime Vallecillo MD (04/06/2019 7:41 AM) [facility]
--- NOTE | 2019-04-06 08:26 | EKG ---
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
[2019-04-06 09:14] LABS: BILIRUBIN,URINE NEGATIVE (NEG); CLARITY,URINE CLEAR; COLOR,URINE YELLOW; NITRITE,URINE NEGATIVE (NEG); PROTEIN,URINE NEGATIVE (NEG-TRACE); UROBILINOGEN,URINE 0.2 mg/dL (0.2 mg/dL)
[2019-04-06 09:16] LABS: BASO # 0.1 x10^3/uL (0.0-0.2); BASO % 1 % (0-3); EOS # 0.2 x10^3/uL (0.0-0.7); EOS % 1 % (0-3); HEMATOCRIT 36.5 % (36.0-47.0); HEMOGLOBIN 11.3 g/dL (12.0-15.5); LYMPH # 0.7 x10^3/uL (1.0-4.8); LYMPH % 3 % (24-48); MEAN CORPUSCULAR HEMOGLOBIN 26 pg (25-35); MEAN CORPUSCULAR HGB CONC 31 g/dL (31-37); MEAN CORPUSCULAR VOLUME 85 fL (79-100); MONO # 0.3 x10^3/uL (0.0-1.1); MONO % 1 % (0-9); NEUT # 20.9 x10^3/uL (1.8-7.7); NEUT % 94 % (31-73); PLATELET COUNT 893 x10^3/uL (140-400); RED CELL DISTRIBUTION WIDTH 28.6 % (11.5-14.5); WHITE BLOOD COUNT 22.2 x10^3/uL (4.0-11.0)
[2019-04-06 09:21] LABS: CALCIUM 9.1 mg/dL (8.5-10.1); CREATININE 0.6 mg/dL (0.6-1.0); GFR 94.3; POTASSIUM 5.2 mmol/L (3.5-5.1)
[2019-04-06 09:22] LABS: AMORPHOUS SEDIMENT,UR PRESENT /HPF; BACTERIA,URINE 0 /HPF (0-FEW); RBC,URINE 0 /HPF (0-2); WBC,URINE OCC /HPF (0-4)
[2019-04-06 09:27] LABS: ALBUMIN 2.9 g/dL (3.4-5.0); ALBUMIN/GLOBULIN RATIO 0.8 (1.0-1.7); MAGNESIUM 2.3 mg/dL (1.8-2.4); TOTAL BILIRUBIN 0.8 mg/dL (0.2-1.0); TOTAL PROTEIN 6.7 g/dL (6.4-8.2)
--- NOTE | 2019-04-06 09:40 | RAD ---
Examination: CT LUMBAR SPINE WO CONTRAST, CT HEAD AND CERVICAL SPINE WO, CT THORACIC SPINE WO CONTRAST History: Fall, pain, right mastectomy, colon cancer Comparison/Correlation: 07/25/2018 CT head without contrast Findings: Axial images of the head, cervical spine, thoracic spine, lumbar spine were obtained without contrast. Sagittal and coronal reformatted images of the spine were provided. Atrophy is present. Chronic ischemic changes bilaterally as noted. No intracranial hemorrhage, midline shift or mass effect. The globes and optic nerves are unremarkable. No depressed skull fracture. Lytic lesion involving the base of the odontoid is noted along with pannus. This has been reported on previous CT of the head and cervical spine without contrast report of 12/30/2013. Moderate C4-5 disc space narrowing is present. Severe C5-6 and C6-7 disc space narrowing is present. Minimal retrolisthesis of C5 in relation to C6 is likely related to degenerative change. Neural foraminal narrowing is present at the left C5-6 region of significant severity and of moderate severity at C6-7 on the left. Facet joint degenerative changes of the cervical spine are notable on the right. Moderate T6 compression fracture of the up to 50 percent is present. Alignment of the thoracic spine is normal. COPD and pulmonary hyperinflation is noted. Notable increase in the patient's known right upper lung mass is identified with anteroposterior dimension of 4.2 cm x 5.4 cm longitudinal dimension. This represents an increase compared previous exam by nearly 1.6 cm anteroposterior and 0.4 cm increased size longitudinal. Multiple new right upper lung pulmonary nodules are present. Severe L2-3 disc space narrowing is present. Moderate to severe L3-4 disc space narrowing is present. Minimal anterolisthesis of L3 in relation to L4 is present. Concentric disc bulge at L3-4 and L4-5 is present. Spinal canal stenosis at L3-4 is severe. Advanced facet joint degenerative changes of the lumbar spine are present. Facet joint degenerative changes from L2 to L4 noted bilaterally. Osteopenia is present. Impression: No intracranial hemorrhage. Significant degenerative changes of the cervical spine and lumbar spine again seen. T6 vertebral body compression fracture is new since 06/26/2017 CTA of the chest and likely related to osteoporosis. It is otherwise of indeterminate age. No fracture fragments. No retropulsion into the spinal canal. Interval increase in size of the patient's known right upper lung mass with new pulmonary nodules. The lungs are not fully included for purposes of this exam. Primary neoplastic process and development of metastases are of concern. Correlate with history. PQRS Compliance Statement: One or more of the following individualized dose reduction techniques were utilized for this examination: 1. Automated exposure control 2. Adjustment of the mA and/or kV according to patient size 3. Use of iterative reconstruction technique Electronically signed by: Esteban Perry MD (04/06/2019 9:37 AM) [facility]
[2019-04-06] MEDS ORDERED: HYDROmorphone 2 MG/ML VIAL IV ONE (10:45)
[2019-04-06] MEDS ORDERED: ONDANSETRON PF 4 MG/2 ML VIAL. IV ONE (10:45)
[2019-04-06 11:21] LABS: % BANDS 3 % (0-9); % EOS 1 % (0-5); % LYMPHS 3 % (24-48); % MONOS 1 % (0-10); % SEGS 92 % (35-66); PLT ESTIMATE INCREASED (ADEQUATE)
[2019-04-06 11:24] LABS: ANISOCYTOSIS MOD
[2019-04-06 11:25] LABS: TOXIC VACUOLATION PRESENT
[2019-04-06 11:26] LABS: OVALOCYTES FEW
[2019-04-06] MEDS ORDERED: HYDROmorphone 2 MG/ML VIAL IV PRN (11:30)
[2019-04-06] MEDS ORDERED: ONDANSETRON PF 4 MG/2 ML VIAL. IV PRN (11:30)
[2019-04-06] MEDS: HYDROmorphone 2 MG/ML VIAL IVP PRN ×2 (14:34→21:00)
[2019-04-06 15:00] VITALS: BP 108/65
--- NOTE | 2019-04-06 17:47 | PDOC ---
GENERAL General: reviewed patient on computer only. MRI ordered of T spine for possible T6 compression fracture. hematological abnormalities are improved and are follow at [facility] hematology. Right upper lobe mass biopsied years ago and benign but this imaging suggests enlargement of same and new lung masses. will possible need more thorne of same this stay. VITAL SIGNS/I&O Vital Signs/I&O: Vital Signs Date Time Temp Pulse Resp B/P (MAP) Pulse Ox O2 Delivery O2 Flow Rate FiO2 04/06/19 16:08 Nasal Cannula 2.5 04/06/19 15:24 16 04/06/19 13:30 82 96 04/06/19 06:40 98.6 123/60 (81) 98.6 ALLERGIES Allergies: Allergies Coded Allergies Type Severity Reaction Last Updated Verified Sulfa (Sulfonamide Antibiotics) Allergy Intermediate Rash 05/06/18 Yes codeine Allergy Intermediate 05/06/18 Yes colloidal oatmeal Allergy Intermediate 05/06/18 Yes cyclobenzaprine Allergy Intermediate 05/06/18 Yes dimethicone Allergy Intermediate 05/06/18 Yes fentanyl Allergy Intermediate Shortness of Air 05/06/18 Yes menthol Allergy Intermediate 05/06/18 Yes morphine Allergy Intermediate 05/06/18 Yes moxifloxacin Allergy Intermediate 05/06/18 Yes soap Allergy Intermediate 05/06/18 Yes MEDS Medications: Current Medications Medications (Trade) Dose Ordered Sig/Gee Route PRN Reason Start Time Stop Time Status Last Admin Dose Admin Hydromorphone HCl (Dilaudid) 0.25 mg 1X ONCE IV 04/06/19 10:45 04/06/19 10:46 DC 04/06/19 11:50 Ondansetron HCl (Zofran) 4 mg 1X ONCE IV 04/06/19 10:45 04/06/19 10:46 DC 04/06/19 11:48 Hydromorphone HCl (Dilaudid) 0.25 mg PRN Q2HR PRN IVP MODERATE PAIN 04/06/19 14:15 04/06/19 14:34 LAB Lab: Laboratory Tests Test 04/06/19 08:55 White Blood Count 22.2 x10^3/uL (4.0-11.0) H Red Blood Count 4.30 x10^6/uL (3.50-5.40) Hemoglobin 11.3 g/dL (12.0-15.5) L Hematocrit 36.5 % (36.0-47.0) Mean Corpuscular Volume 85 fL (79-100) Mean Corpuscular Hemoglobin 26 pg (25-35) Mean Corpuscular Hemoglobin Concent 31 g/dL (31-37) Red Cell Distribution Width 28.6 % (11.5-14.5) H Platelet Count 893 x10^3/uL (140-400) H Neutrophils (%) (Auto) 94 % (31-73) H Lymphocytes (%) (Auto) 3 % (24-48) L Monocytes (%) (Auto) 1 % (0-9) Eosinophils (%) (Auto) 1 % (0-3) Basophils (%) (Auto) 1 % (0-3) Neutrophils # (Auto) 20.9 x10^3/uL (1.8-7.7) H Lymphocytes # (Auto) 0.7 x10^3/uL (1.0-4.8) L Monocytes # (Auto) 0.3 x10^3/uL (0.0-1.1) Eosinophils # (Auto) 0.2 x10^3/uL (0.0-0.7) Basophils # (Auto) 0.1 x10^3/uL (0.0-0.2) Segmented Neutrophils % 92 % (35-66) H Band Neutrophils % 3 % (0-9) Lymphocytes % 3 % (24-48) L Monocytes % 1 % (0-10) Eosinophils % 1 % (0-5) Toxic Vacuolation Present Platelet Estimate Increased (ADEQUATE) Large Platelets Few Giant Platelets Occ Anisocytosis Mod Ovalocytes Few Urine Collection Type U cath Urine Color Yellow Urine Clarity Clear Urine pH 6.0 Urine Specific [place] 1.020 Urine Protein Negative mg/dL (NEG-TRACE) Urine Glucose (UA) Negative mg/dL (NEG) Urine Ketones (Stick) Negative mg/dL (NEG) Urine Blood Negative (NEG) Urine Nitrite Negative (NEG) Urine Bilirubin Negative (NEG) Urine Urobilinogen Dipstick 0.2 mg/dL (0.2 mg/dL) Urine Leukocyte Esterase Negative (NEG) Urine RBC 0 /HPF (0-2) Urine WBC Occ /HPF (0-4) Urine Amorphous Sediment Present /HPF Urine Bacteria 0 /HPF (0-FEW) Sodium Level 136 mmol/L (136-145) Potassium Level 5.2 mmol/L (3.5-5.1) H Chloride Level 101 mmol/L (98-107) Carbon Dioxide Level 27 mmol/L (21-32) Anion Gap 8 (6-14) Blood Urea Nitrogen 26 mg/dL (7-20) H Creatinine 0.6 mg/dL (0.6-1.0) Estimated GFR (Cockcroft-Gault) 94.3 BUN/Creatinine Ratio 43 (6-20) H Glucose Level 98 mg/dL (70-99) Calcium Level 9.1 mg/dL (8.5-10.1) Magnesium Level 2.3 mg/dL (1.8-2.4) Total Bilirubin 0.8 mg/dL (0.2-1.0) Aspartate Amino Transferase (AST) 13 U/L (15-37) L Alanine Aminotransferase (ALT) 8 U/L (14-59) L Alkaline Phosphatase 95 U/L (46-116) Troponin I Quantitative < 0.017 ng/mL (0.000-0.055) Total Protein 6.7 g/dL (6.4-8.2) Albumin 2.9 g/dL (3.4-5.0) L Albumin/Globulin Ratio 0.8 (1.0-1.7) L Laboratory Tests 04/06/19 08:55 Laboratory Tests 04/06/19 08:55 KYLE MCKOY MD Apr 06, 2019 17:47
[2019-04-06 19:00] VITALS: BP 108/53
[2019-04-06 23:00] VITALS: BP 126/62
[2019-04-07 03:00] VITALS: BP 131/73
[2019-04-07 07:00] VITALS: BP 112/56
[2019-04-07] MEDS: HYDROmorphone 2 MG/ML VIAL IVP PRN (08:53)
[2019-04-07 09:34] LABS: BASO # 0.1 x10^3/uL (0.0-0.2); BASO % 0 % (0-3); EOS # 0.2 x10^3/uL (0.0-0.7); EOS % 1 % (0-3); HEMOGLOBIN 11.2 g/dL (12.0-15.5); LYMPH # 0.6 x10^3/uL (1.0-4.8); LYMPH % 3 % (24-48); MEAN CORPUSCULAR HEMOGLOBIN 27 pg (25-35); MEAN CORPUSCULAR HGB CONC 31 g/dL (31-37); MEAN CORPUSCULAR VOLUME 86 fL (79-100); MONO # 0.5 x10^3/uL (0.0-1.1); MONO % 2 % (0-9); NEUT # 22.4 x10^3/uL (1.8-7.7); NEUT % 94 % (31-73); RED BLOOD COUNT 4.19 x10^6/uL (3.50-5.40); RED CELL DISTRIBUTION WIDTH 28.8 % (11.5-14.5); WHITE BLOOD COUNT 23.7 x10^3/uL (4.0-11.0)
[2019-04-07 09:37] LABS: PLATELET COUNT 943 x10^3/uL (140-400)
[2019-04-07 10:02] LABS: ALBUMIN 2.8 g/dL (3.4-5.0); ALBUMIN/GLOBULIN RATIO 0.6 (1.0-1.7); ALK PHOS 91 U/L (46-116); ANION GAP 6 (6-14); AST (SGOT) 10 U/L (15-37); BLOOD UREA NITROGEN 19 mg/dL (7-20); BUN/CREATININE RATIO 32 (6-20); CALCIUM 8.9 mg/dL (8.5-10.1); CARBON DIOXIDE 29 mmol/L (21-32); CHLORIDE 103 mmol/L (98-107); CREATININE 0.6 mg/dL (0.6-1.0); GFR 94.3; GLUCOSE 159 mg/dL (70-99); POTASSIUM 4.3 mmol/L (3.5-5.1); SODIUM 138 mmol/L (136-145); TOTAL BILIRUBIN 0.7 mg/dL (0.2-1.0); TOTAL PROTEIN 7.2 g/dL (6.4-8.2)
[2019-04-07 10:05] LABS: ALT (SGPT) < 6 U/L (14-59)
[2019-04-07] MEDS ORDERED: MAG HYDROX/ALUMINUM HYD/SIMETH 30 ML ORAL.SUSP PO PRN (10:30)
[2019-04-07] MEDS ORDERED: traMADol 50 MG TABLET PO PRN (10:30)
[2019-04-07] MEDS ORDERED: MAGNESIUM HYDROXIDE 2,400 MG/30 ML ORAL.SUSP. PO PRN (10:30)
[2019-04-07] MEDS ORDERED: ALBUTEROL SULFATE 2.5 MG/3 ML NEBU. NEB PRN (10:30)
[2019-04-07] MEDS ORDERED: diazePAM 2 MG TABLET PO PRN (10:30)
[2019-04-07] MEDS ORDERED: ONDANSETRON ODT 4 MG TAB.RAPDIS. PO PRN (10:30)
--- NOTE | 2019-04-07 10:30 | PDOC ---
Provider Note Provider Note sleeping after narc- has new T6 fx from fall, RUL mass seems alrger w/ new nodules, likely a CA, poss pathologic fx- will consult pulm, needs another biopsy- Has PV, labs noted, add miacalcin SUSAN Adam MD Apr 07, 2019 10:30
[2019-04-07 11:00] VITALS: BP 104/56
[2019-04-07] MEDS ORDERED: METOPROLOL TART IMMED RELEASE 25 MG TABLET. PO SCH (11:00)
--- NOTE | 2019-04-07 11:02 | PDOC ---
Provider Note Provider Note [id number] acute resp fail abnl cxr copd t6 fx see orders. MARY TRIANA MD Apr 07, 2019 11:02
--- NOTE | 2019-04-07 11:28 | CONS ---
DATE OF CONSULTATION: 04/07/2019 REASON FOR CONSULTATION: I was asked to see this 89-year-old lady for abnormal chest x-ray. HISTORY OF PRESENT ILLNESS: The patient is currently sleepy. She did have Dilaudid. All of the information was obtained from the chart. She was brought via an EMS from a nursing facility. Reportedly, she fell. She was found to have a new T6 fracture from fall. A chest x-ray was done, which showed right upper lobe mass, which appeared larger with no nodules. She was admitted in 06/2018. The patient was seen by Dr. Lawson. Apparently, she did have biopsy many years ago of this lesion, which was nondiagnostic and she has been followed by Dr. Miguel A Gan in [facility]. At that point, she did not want any other workup to be done. She is currently sleepy. She does have cough. She is on oxygen continuously. She did have pain in the Emergency Room. PAST MEDICAL HISTORY: History of lung mass, probable lung cancer, COPD, CLL, history of breast cancer, history of colon cancer, depression. SOCIAL HISTORY: Positive for smoking. Unable to obtain details. ALLERGIES: SULFA, CODEINE, OATMEAL, CYCLOBENZAPRINE, DIMETHICONE, FENTANYL, Menthol, MORPHINE, MOXIFLOXACIN SOAP. MEDICATIONS: Currently, she is on gabapentin, Motrin, Colace, prednisone, Lopressor, Hydrea, Ultram. FAMILY HISTORY: Unable to obtain. REVIEW OF SYSTEMS: As mentioned as above. Unable to obtain more information. The patient is sleepy post-tramadol. Other systems are otherwise negative. PHYSICAL EXAMINATION: GENERAL: This is a chronically ill-appearing, malnourished lady. VITAL SIGNS: Her O2 saturation on 2 liters of oxygen is 97%, respiratory rate 16, heart rate 88, blood pressure 112/56, temperature 98.1. HEENT: Normocephalic, atraumatic. Pupils equal, round, reactive to light. Nose is clear. NECK: There is no lymphadenopathy or thyromegaly. CARDIOVASCULAR: Regular rate and rhythm. PMI is nondisplaced. CHEST: Inspection is normal. LUNGS: Diminished breath sounds. Percussion is within normal limit. ABDOMEN: Soft. Bowel sounds are good. There is no mass. EXTREMITIES: There is no edema. LYMPHATICS: There is no lymphadenopathy. NEUROLOGIC: She is sleepy. SKIN: Chronic changes. LABORATORY DATA: I reviewed the following lab data: Chest x-ray shows right upper lobe mass, increased in size. CT showed no intracranial hemorrhage, new T6 vertebral body compression fracture, interval increase in right upper lung mass with new pulmonary nodules. Her lungs are not fully included. WBC 23.7, hemoglobin 11.2, platelets 943. Sodium 138, potassium 4.3, chloride 103, CO2 of 29, glucose 159, BUN 19, creatinine 0.6. Troponin less than 0.01. IMPRESSION: 1. Acute respiratory failure, multifactorial in etiology. 2. Status post fall with T6 fracture. 3. Abnormal chest x-ray, enlarging lung mass. The patient previously did not want any further evaluation. 4. Chronic obstructive pulmonary disease. 5. History of breast cancer. 6. History of colon cancer. PLAN AND RECOMMENDATIONS: 1. Titrate FiO2 to keep O2 saturation 92%. 2. Start bronchodilator. 3. Start inhaled corticosteroid. 4. I will do a CT of the chest. 5. We will discuss further evaluation of her lung mass tomorrow when she is more alert. 6. Avoid oversedation. 7. The findings and recommendations were discussed with RN. Thank you very much for allowing me to participate in care of this very nice lady. MARY TRIANA M.D. : Nikki JOB#: [id number] / [id number]
[2019-04-07] MEDS: IPRATRPIUM/ALBUTEROL 0.5/2.5MG 3 ML NEBU. NEB SCH ×3 (12:00→20:46)
[2019-04-07] MEDS ORDERED: CYANOCOBALAMIN (VITAMIN B-12) 1,000 MCG TABLET. PO SCH (12:00)
[2019-04-07] MEDS ORDERED: IOHEXOL 300 MG/ML 100ML VIAL. IV ONE (12:45)
[2019-04-07] MEDS: ASPIRIN CHEWABLE 81 MG TABLET. PO SCH (13:00)
[2019-04-07] MEDS: CYANOCOBALAMIN (VITAMIN B-12) 1,000 MCG TABLET. PO SCH (13:00)
[2019-04-07] MEDS ORDERED: CONTRAST GIVEN. MC PRN (13:00)
[2019-04-07] MEDS: DOCUSATE SODIUM 100 MG CAPSULE. PO SCH (13:00)
[2019-04-07] MEDS: CALCITONIN,SALMON NASAL 200 UNITS/SPRAY 3.7ML BOTTLE. NS SCH (13:00)
[2019-04-07] MEDS: predniSONE 5 MG TABLET PO SCH (13:01)
[2019-04-07] MEDS: IBUPROFEN 400 MG TABLET. PO SCH ×3 (13:01→22:08)
[2019-04-07] MEDS: HYDROXYUREA 500 MG CAPSULE PO SCH ×2 (13:07→22:10)
[2019-04-07 15:00] VITALS: BP 107/59
[2019-04-07] MEDS: BUDESONIDE 0.5 MG/2 ML NEBU. NEB SCH ×2 (15:24→20:46)
[2019-04-07 19:00] VITALS: BP 111/54
[2019-04-07] MEDS: GABAPENTIN 300 MG CAPSULE. PO SCH (22:08)
[2019-04-07 23:00] VITALS: BP 110/61
--- NOTE | 2019-04-08 00:07 | RAD ---
EXAM: CT OF THE CHEST WITH CONTRAST. HISTORY: Lung mass. TECHNIQUE: Computed tomography of the chest was performed after the intravenous administration of of iodinated contrast. COMPARISON: 06/26/2017. FINDINGS: Images of the upper abdomen reveal stable hepatic cysts measuring up to 2.2 cm. Bone windows reveal no suspicious lesions. A low-density mass in the right upper lobe measures 5.0 x 3.8 cm transaxially. This has been present chronically but has increased in size. In 2017 it measured 4.2 x 3.5 cm. There are now many small satellite nodules extending centrally and peripherally. Nodular infiltrates posteroinferior to the mass have been present chronically. There is chronic bronchiectasis and scarring in the right middle lobe. This is seen to a lesser degree in the right base. Nodular infiltrates in the right base have improved since 2017. There are lesser nodular infiltrates and bronchiectasis in the left base and inferiorly in the right upper lobe. A prominent right hilar lymph node as seen on image 24 measures 3.0 x 1.3 cm. This has also been present chronically and may be reactive. A subcarinal node measures 2.7 x 1.2 cm and is more prominent than on the prior study. The esophagus is dilated proximally but not distally. There is a trace right pleural effusion. There is no pericardial effusion. The heart is not enlarged. IMPRESSION: 1. A 5.0 cm low-density mass in the right upper lobe has been present chronically, but has increased in size since 2017. Many surrounding satellite nodules are also increased. A chronic postinfectious process such as focal cystic bronchiectasis or a lung abscess could be considered given chronicity, but malignancy should be excluded. PET/CT or biopsy are recommended if the diagnosis remains unclear. 2. Right hilar and subcarinal adenopathy has increased but is also chronic. 3. Bronchiectasis and chronic infiltrates elsewhere are consistent with chronic aspiration or chronic atypical infectious process. *One or more of the following individualized dose reduction techniques were utilized for this examination: 1. Automated exposure control. 2. Adjustment of the mA and/or kV according to patient size. 3. Use of iterative reconstruction technique. Electronically signed by: Chino Ramirez MD (04/08/2019 12:04 AM) [facility] [place]
[2019-04-08 02:57] VITALS: BP 102/52
--- NOTE | 2019-04-08 06:42 | PDOC2 ---
CONSULT Date of Consult Date of Consult DATE: 04/08/19 TIME: 06:36 Reason for Consult Reason for Consult: polycythemia Identification/Chief Complaint Chief Complaint elevated plt count Source Source: Chart review, Patient History of Present Illness Reason for Visit: long-standing JAK2+ polycythemia vera (manifested as leukocytosis, anemia and thrombocytosis) who has been on long-term treatment with Hydrea which certainly causes some of her anemic problems. She was admitted to the hospital in October 2018 with anemia. Her Hydroxyurea was then held. Over the past few months, her platelet count and WBC has dramatically increased. She restarted Hydrea mid February 2019. Dr Salazar increased Hydrea from 500mg qday to 1000mg qday early Mar 2019 (her plt count was nearly 1.4million then). She was admitted a couple days ago after falling at [facility]. She has been there for 3-4 yrs, per her recollection. According to her, she wants to know what is going on with lungs. Past Medical History Cardiovascular: HTN Pulmonary: COPD, Other Heme/Onc: Cancer Past Surgical History Past Surgical History: Mastectomy, Tonsillectomy, Hysterectomy, Colon Resection Family History Family History: Cancer Social History ALCOHOL: occassional Drugs: None Current Problem List Problem List Problems Medical Problems: (1) Fall Status: Acute (2) Head injury Status: Acute (3) Scalp laceration Status: Acute (4) Thoracic compression fracture Status: Acute Current Medications Current Medications Current Medications Hydromorphone HCl (Dilaudid) 0.25 mg 1X ONCE IV Last administered on 04/06/19at 11:50; Start 04/06/19 at 10:45; Stop 04/06/19 at 10:46; Status DC Ondansetron HCl (Zofran) 4 mg 1X ONCE IV Last administered on 04/06/19at 11:48; Start 04/06/19 at 10:45; Stop 04/06/19 at 10:46; Status DC Ondansetron HCl (Zofran) 4 mg PRN Q8HRS PRN IV NAUSEA/VOMITING; Start 04/06/19 at 11:30; Stop 04/07/19 at 11:29; Status DC Hydromorphone HCl (Dilaudid) 0.025 mg PRN Q2HRS PRN IV MODERATE TO SEVERE PAIN; Start 04/06/19 at 11:30; Status Cancel Hydromorphone HCl (Dilaudid) 0.25 mg PRN Q2HR PRN IVP MODERATE PAIN Last administered on 04/07/19at 08:53; Start 04/06/19 at 14:15 Cyanocobalamin (Vitamin B-12) 1,000 mcg DAILY PO Last administered on 04/07/19at 13:00; Start 04/07/19 at 11:00 Cyanocobalamin (Vitamin B-12) 1,000 mcg DAILYWLUN PO ; Start 04/07/19 at 12:00; Status UNV Diazepam (Valium) 2 mg PRN TID PRN PO ANXIETY; Start 04/07/19 at 10:30 Docusate Sodium (Colace) 100 mg DAILYWLUN PO Last administered on 04/07/19at 13:00; Start 04/07/19 at 12:00 Gabapentin (Neurontin) 300 mg QHS PO Last administered on 04/07/19at 22:08; Start 04/07/19 at 21:00 Hydroxyurea (Hydrea) 500 mg BID PO Last administered on 04/07/19at 22:10; Start 04/07/19 at 11:00 Ibuprofen (Motrin) 400 mg QID PO Last administered on 04/07/19at 22:08; Start 04/07/19 at 13:00 Albuterol Sulfate (Ventolin Neb Soln) 2.5 mg PRN Q6HRS PRN NEB SHORTNESS OF BREATH; Start 04/07/19 at 10:30 Al Hydroxide/Mg Hydroxide (Mylanta Plus Xs) 30 ml PRN Q4HRS PRN PO STOMACH CRAMPING; Start 04/07/19 at 10:30 Magnesium Hydroxide (Milk Of Magnesia) 2,400 mg PRN DAILY PRN PO CONSTIPATION; Start 04/07/19 at 10:30 Metoprolol Tartrate (Lopressor) 25 mg DAILY PO ; Start 04/07/19 at 11:00 Ondansetron HCl (Zofran Odt) 2 mg PRN Q6HRS PRN PO NAUSEA; Start 04/07/19 at 10:30 Prednisone (Prednisone) 5 mg DAILY PO Last administered on 04/07/19at 13:01; Start 04/07/19 at 11:00 Tramadol HCl (Ultram) 100 mg PRN Q6HRS PRN PO PAIN Last administered on 04/07/19at 19:16; Start 04/07/19 at 10:30 Calcitonin [place] (Miacalcin Nasal) 1 spray DAILY NS Last administered on 04/07/19at 13:00; Start 04/07/19 at 11:00 Albuterol/ Ipratropium (Duoneb) 3 ml RTQID NEB Last administered on 04/07/19at 20:46; Start 04/07/19 at 12:00 Budesonide (Pulmicort) 0.5 mg RTBID NEB Last administered on 04/07/19at 20:46; Start 04/07/19 at 12:00 Aspirin (Children'S Aspirin) 162 mg DAILYWBKFT PO Last administered on 03/12 02/26at 13:00; Start 04/07/19 at 13:00 Iohexol (Omnipaque 300 Mg/ml) 75 ml 1X ONCE IV Last administered on 04/07/19at 12:45; Start 04/07/19 at 12:45; Stop 04/07/19 at 12:47; Status DC Info (CONTRAST GIVEN -- Rx MONITORING) 1 each PRN DAILY PRN MC SEE COMMENTS; Start 04/07/19 at 13:00; Stop 04/09/19 at 12:59 Active Scripts Active Reported Multi Vitamin Daily (Multivitamin) 1 Each Tablet 1 Tab PO DAILY Miralax (Polyethylene Glycol 3350) Unknown Strength Powd.pack Unknown Dose PO BID Metoprolol Tartrate 25 Mg Tablet 1 Tab PO DAILY Duoneb 0.5-3(2.5) Mg/3 Ml (Albuterol/Ipratropium) 3 Ml Ampul.neb 3 Ml NEB Q6HRS PRN Vitamin B-12 (Cyanocobalamin (Vitamin B-12)) 1,000 Mcg Tablet 1 Tab PO DAILY Tramadol Hcl 50 Mg Tablet 100 Mg PO Q6HRS PRN Zofran Odt (Ondansetron) 4 Mg Tab.rapdis 0.5 Tab SL PRN Q6HRS PRN Biofreeze (Menthol) 118 Ml Gel..ml. 118 Ml TP PRN QID PRN [place] Saline (Sodium Chloride) 50 Ml Drops 1 Tu NS TID PRN Hydroxyurea 500 Mg Capsule 500 Mg PO BID Milk Of Magnesia (Magnesium Hydroxide) 400 Mg/5 Ml Oral.susp 30 Ml PO PRN DAILY PRN Maalox Maximum Strength Susp (Mag Hydrox/Al Hydrox/Simeth) 355 Ml Oral.susp 30 Ml PO PRN Q4HRS PRN Aquaphor Ointment (Mineral Oil/Hydrophil Petrolat) 396 Gm Oint...g. 396 Gm TP BID Furosemide 40 Mg Tablet 1 Tab PO DAILY Valium (Diazepam) 2 Mg Tablet 2 Mg PO PRN TID PRN Myrbetriq (Mirabegron) 25 Mg Tab.er.24h 25 Mg PO DAILY Acetaminophen Ext.release (Acetaminophen) 650 Mg Tablet.er 650 Mg PO Q6HRS Ibuprofen 400 Mg Tablet 400 Mg PO QID Colace (Docusate Sodium) 100 Mg Capsule 1 Cap PO DAILYWLUN Aspirin 81 Mg Tab.chew 1 Tab PO DAILY Vitamin B-12 (Cyanocobalamin (Vitamin B-12)) 1,000 Mcg Tablet 1 Tab PO DAILYWLUN Gabapentin (Gabapentin) 100 Mg Capsule 300 Mg PO QHS Prednisone 5 Mg Tablet 5 Mg PO DAILY Albuterol Sulfate Conc Neb Soln (Albuterol Sulfate) 2.5 Mg/0.5 Ml Vial.neb 2.5 Mg NEB PRN Q4HRS PRN Allergies Allergies: Coded Allergies: Sulfa (Sulfonamide Antibiotics) (Verified Allergy, Intermediate, Rash, ) codeine (Verified Allergy, Intermediate, 05/06/18) colloidal oatmeal (Verified Allergy, Intermediate, 05/06/18) cyclobenzaprine (Verified Allergy, Intermediate, 05/06/18) dimethicone (Verified Allergy, Intermediate, 05/06/18) fentanyl (Verified Allergy, Intermediate, Shortness of Air, 05/06/18) menthol (Verified Allergy, Intermediate, 05/06/18) morphine (Verified Allergy, Intermediate, 05/06/18) moxifloxacin (Verified Allergy, Intermediate, 05/06/18) PT CURRENTLY TAKING LEVAQUIN PO WITH NO PROBLEM soap (Verified Allergy, Intermediate, 05/06/18) ROS General: YES: Fatigue PSYCHOLOGICAL ROS: YES: Disorientation Eyes: Yes Decreased vision HEENT: YES: Hearing change Hematological and Lymphatic: No: Bleeding Problems, Blood Clots, Blood Transfusions, Brusing, Night Sweats, Pallor, Swollen Lymph Nodes, Other Respiratory: YES: Cough Gastrointestinal: No Nausea, No Vomiting, No Abdominal Pain, No Diarrhea, No Constipation, No Melena, No Hematochezia, No Other Musculoskeletal: Yes Gait Disturbance Neurological: Yes Confusion Physical Exam General: Alert, No acute distress, Other ("2001" for the year, 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 [place]: "that [place]" (could not believe it was Jason Blake), did know she was in a hospital setting but could not name it) HEENT: PERRLA Lungs: Clear to auscultation Heart: Regular rate Abdomen: Normal bowel sounds Extremities: No clubbing, No cyanosis, No edema Neuro: Normal speech Vitals VITALS Vital Signs Date Time Temp Pulse Resp B/P (MAP) Pulse Ox O2 Delivery O2 Flow Rate FiO2 04/08/19 02:57 98.5 79 18 102/52 (69) 93 Room Air 98.5 04/07/19 15:26 2.0 Labs Labs Laboratory Tests Test 04/06/19 08:55 04/07/19 09:15 White Blood Count 22.2 x10^3/uL (4.0-11.0) 23.7 x10^3/uL (4.0-11.0) Red Blood Count 4.30 x10^6/uL (3.50-5.40) 4.19 x10^6/uL (3.50-5.40) Hemoglobin 11.3 g/dL (12.0-15.5) 11.2 g/dL (12.0-15.5) Hematocrit 36.5 % (36.0-47.0) 36.0 % (36.0-47.0) Mean Corpuscular Volume 85 fL (79-100) 86 fL (79-100) Mean Corpuscular Hemoglobin 26 pg (25-35) 27 pg (25-35) Mean Corpuscular Hemoglobin Concent 31 g/dL (31-37) 31 g/dL (31-37) Red Cell Distribution Width 28.6 % (11.5-14.5) 28.8 % (11.5-14.5) Platelet Count 893 x10^3/uL (140-400) 943 x10^3/uL (140-400) Neutrophils (%) (Auto) 94 % (31-73) 94 % (31-73) Lymphocytes (%) (Auto) 3 % (24-48) 3 % (24-48) Monocytes (%) (Auto) 1 % (0-9) 2 % (0-9) Eosinophils (%) (Auto) 1 % (0-3) 1 % (0-3) Basophils (%) (Auto) 1 % (0-3) 0 % (0-3) Neutrophils # (Auto) 20.9 x10^3/uL (1.8-7.7) 22.4 x10^3/uL (1.8-7.7) Lymphocytes # (Auto) 0.7 x10^3/uL (1.0-4.8) 0.6 x10^3/uL (1.0-4.8) Monocytes # (Auto) 0.3 x10^3/uL (0.0-1.1) 0.5 x10^3/uL (0.0-1.1) Eosinophils # (Auto) 0.2 x10^3/uL (0.0-0.7) 0.2 x10^3/uL (0.0-0.7) Basophils # (Auto) 0.1 x10^3/uL (0.0-0.2) 0.1 x10^3/uL (0.0-0.2) Segmented Neutrophils % 92 % (35-66) Band Neutrophils % 3 % (0-9) Lymphocytes % 3 % (24-48) Monocytes % 1 % (0-10) Eosinophils % 1 % (0-5) Toxic Vacuolation Present Platelet Estimate Increased (ADEQUATE) Large Platelets Few Giant Platelets Occ Anisocytosis Mod Ovalocytes Few Urine Collection Type U cath Urine Color Yellow Urine Clarity Clear Urine pH 6.0 Urine Specific [place] 1.020 Urine Protein Negative mg/dL (NEG-TRACE) Urine Glucose (UA) Negative mg/dL (NEG) Urine Ketones (Stick) Negative mg/dL (NEG) Urine Blood Negative (NEG) Urine Nitrite Negative (NEG) Urine Bilirubin Negative (NEG) Urine Urobilinogen Dipstick 0.2 mg/dL (0.2 mg/dL) Urine Leukocyte Esterase Negative (NEG) Urine RBC 0 /HPF (0-2) Urine WBC Occ /HPF (0-4) Urine Amorphous Sediment Present /HPF Urine Bacteria 0 /HPF (0-FEW) Sodium Level 136 mmol/L (136-145) 138 mmol/L (136-145) Potassium Level 5.2 mmol/L (3.5-5.1) 4.3 mmol/L (3.5-5.1) Chloride Level 101 mmol/L (98-107) 103 mmol/L (98-107) Carbon Dioxide Level 27 mmol/L (21-32) 29 mmol/L (21-32) Anion Gap 8 (6-14) 6 (6-14) Blood Urea Nitrogen 26 mg/dL (7-20) 19 mg/dL (7-20) Creatinine 0.6 mg/dL (0.6-1.0) 0.6 mg/dL (0.6-1.0) Estimated GFR (Cockcroft-Gault) 94.3 94.3 BUN/Creatinine Ratio 43 (6-20) 32 (6-20) Glucose Level 98 mg/dL (70-99) 159 mg/dL (70-99) Calcium Level 9.1 mg/dL (8.5-10.1) 8.9 mg/dL (8.5-10.1) Magnesium Level 2.3 mg/dL (1.8-2.4) Total Bilirubin 0.8 mg/dL (0.2-1.0) 0.7 mg/dL (0.2-1.0) Aspartate Amino Transf (AST/SGOT) 13 U/L (15-37) 10 U/L (15-37) Alanine Aminotransferase (ALT/SGPT) 8 U/L (14-59) < 6 U/L (14-59) Alkaline Phosphatase 95 U/L (46-116) 91 U/L (46-116) Troponin I Quantitative < 0.017 ng/mL (0.000-0.055) Total Protein 6.7 g/dL (6.4-8.2) 7.2 g/dL (6.4-8.2) Albumin 2.9 g/dL (3.4-5.0) 2.8 g/dL (3.4-5.0) Albumin/Globulin Ratio 0.8 (1.0-1.7) 0.6 (1.0-1.7) Laboratory Tests Test 04/07/19 09:15 White Blood Count 23.7 x10^3/uL (4.0-11.0) Red Blood Count 4.19 x10^6/uL (3.50-5.40) Hemoglobin 11.2 g/dL (12.0-15.5) Hematocrit 36.0 % (36.0-47.0) Mean Corpuscular Volume 86 fL (79-100) Mean Corpuscular Hemoglobin 27 pg (25-35) Mean Corpuscular Hemoglobin Concent 31 g/dL (31-37) Red Cell Distribution Width 28.8 % (11.5-14.5) Platelet Count 943 x10^3/uL (140-400) Neutrophils (%) (Auto) 94 % (31-73) Lymphocytes (%) (Auto) 3 % (24-48) Monocytes (%) (Auto) 2 % (0-9) Eosinophils (%) (Auto) 1 % (0-3) Basophils (%) (Auto) 0 % (0-3) Neutrophils # (Auto) 22.4 x10^3/uL (1.8-7.7) Lymphocytes # (Auto) 0.6 x10^3/uL (1.0-4.8) Monocytes # (Auto) 0.5 x10^3/uL (0.0-1.1) Eosinophils # (Auto) 0.2 x10^3/uL (0.0-0.7) Basophils # (Auto) 0.1 x10^3/uL (0.0-0.2) Sodium Level 138 mmol/L (136-145) Potassium Level 4.3 mmol/L (3.5-5.1) Chloride Level 103 mmol/L (98-107) Carbon Dioxide Level 29 mmol/L (21-32) Anion Gap 6 (6-14) Blood Urea Nitrogen 19 mg/dL (7-20) Creatinine 0.6 mg/dL (0.6-1.0) Estimated GFR (Cockcroft-Gault) 94.3 BUN/Creatinine Ratio 32 (6-20) Glucose Level 159 mg/dL (70-99) Calcium Level 8.9 mg/dL (8.5-10.1) Total Bilirubin 0.7 mg/dL (0.2-1.0) Aspartate Amino Transf (AST/SGOT) 10 U/L (15-37) Alanine Aminotransferase (ALT/SGPT) < 6 U/L (14-59) Alkaline Phosphatase 91 U/L (46-116) Total Protein 7.2 g/dL (6.4-8.2) Albumin 2.8 g/dL (3.4-5.0) Albumin/Globulin Ratio 0.6 (1.0-1.7) Images Images Reviewed CT chest... Images of the upper abdomen reveal stable hepatic cysts measuring up to 2.2 cm. Bone windows reveal no suspicious lesions. A low-density mass in the right upper lobe measures 5.0 x 3.8 cm transaxially. This has been present chronically but has increased in size. In 2017 it measured 4.2 x 3.5 cm. There are now many small satellite nodules extending centrally and peripherally. Nodular infiltrates posteroinferior to the mass have been present chronically. There is chronic bronchiectasis and scarring in the right middle lobe. This is seen to a lesser degree in the right base. Nodular infiltrates in the right base have improved since 2017. There are lesser nodular infiltrates and bronchiectasis in the left base and inferiorly in the right upper lobe. A prominent right hilar lymph node as seen on image 24 measures 3.0 x 1.3 cm. This has also been present chronically and may be reactive. A subcarinal node measures 2.7 x 1.2 cm and is more prominent than on the prior study. The esophagus is dilated proximally but not distally. There is a trace right pleural effusion. There is no pericardial effusion. The heart is not enlarged. Assessment/Plan Assessment/Plan 89 yo F w/ P vera, admitted with fall, compression fracture, slowly growing lung mass, underlying dementia, noted to have elevated plt count which is actually better than it was a couple weeks ago after adjusting dose of hydrea to 1000mg/day. Recommend 162mg baby aspirin a day as well as the 1000mg hydrea to prevent clotting issues, but no other recs. She should continue hydrea as dosed for now. Would not recommend pursuing further work-up of lung mass. The only thing that it could help would be potentially the conversation about overall prognosis, but she is too weak, frail, demented to undergo treatment, if indeed a slow growing lung cancer. MRI head w/ and w/o, if never done before, may be helpful in assuring this is not metastatic disease to the brain that caused the falls, but again, hard to believe that we would do anything, if so. Ongoing conversation with family should be had to decide on goals of care... Thanks for consult, Ritu, cell [phone] CANDIDO ONTIVEROS MD Apr 08, 2019 06:42
[2019-04-08 07:00] VITALS: BP 106/57
[2019-04-08] MEDS: IPRATRPIUM/ALBUTEROL 0.5/2.5MG 3 ML NEBU. NEB SCH ×4 (07:15→18:19)
[2019-04-08] MEDS: BUDESONIDE 0.5 MG/2 ML NEBU. NEB SCH ×2 (07:15→18:18)
--- NOTE | 2019-04-08 07:35 | PDOC ---
PULMONARY PROGRESS NOTES Subjective feels better, tired, sob better, no cough, Vitals Vital Signs Date Time Temp Pulse Resp B/P (MAP) Pulse Ox O2 Delivery O2 Flow Rate FiO2 04/08/19 07:18 92 Room Air 04/08/19 02:57 98.5 79 18 102/52 (69) 98.5 04/07/19 15:26 2.0 ROS: No Nausea General: Alert, No acute distress HEENT: Other (nc at perrl ) Lungs: Crackles Cardiovascular: S1, S2 Abdomen: Soft, Non-tender Neuro Exam: Alert Extremities: No Edema Skin: Warm Labs Laboratory Tests Test 04/06/19 08:55 04/07/19 09:15 White Blood Count 22.2 x10^3/uL (4.0-11.0) 23.7 x10^3/uL (4.0-11.0) Red Blood Count 4.30 x10^6/uL (3.50-5.40) 4.19 x10^6/uL (3.50-5.40) Hemoglobin 11.3 g/dL (12.0-15.5) 11.2 g/dL (12.0-15.5) Hematocrit 36.5 % (36.0-47.0) 36.0 % (36.0-47.0) Mean Corpuscular Volume 85 fL (79-100) 86 fL (79-100) Mean Corpuscular Hemoglobin 26 pg (25-35) 27 pg (25-35) Mean Corpuscular Hemoglobin Concent 31 g/dL (31-37) 31 g/dL (31-37) Red Cell Distribution Width 28.6 % (11.5-14.5) 28.8 % (11.5-14.5) Platelet Count 893 x10^3/uL (140-400) 943 x10^3/uL (140-400) Neutrophils (%) (Auto) 94 % (31-73) 94 % (31-73) Lymphocytes (%) (Auto) 3 % (24-48) 3 % (24-48) Monocytes (%) (Auto) 1 % (0-9) 2 % (0-9) Eosinophils (%) (Auto) 1 % (0-3) 1 % (0-3) Basophils (%) (Auto) 1 % (0-3) 0 % (0-3) Neutrophils # (Auto) 20.9 x10^3/uL (1.8-7.7) 22.4 x10^3/uL (1.8-7.7) Lymphocytes # (Auto) 0.7 x10^3/uL (1.0-4.8) 0.6 x10^3/uL (1.0-4.8) Monocytes # (Auto) 0.3 x10^3/uL (0.0-1.1) 0.5 x10^3/uL (0.0-1.1) Eosinophils # (Auto) 0.2 x10^3/uL (0.0-0.7) 0.2 x10^3/uL (0.0-0.7) Basophils # (Auto) 0.1 x10^3/uL (0.0-0.2) 0.1 x10^3/uL (0.0-0.2) Segmented Neutrophils % 92 % (35-66) Band Neutrophils % 3 % (0-9) Lymphocytes % 3 % (24-48) Monocytes % 1 % (0-10) Eosinophils % 1 % (0-5) Toxic Vacuolation Present Platelet Estimate Increased (ADEQUATE) Large Platelets Few Giant Platelets Occ Anisocytosis Mod Ovalocytes Few Urine Collection Type U cath Urine Color Yellow Urine Clarity Clear Urine pH 6.0 Urine Specific [place] 1.020 Urine Protein Negative mg/dL (NEG-TRACE) Urine Glucose (UA) Negative mg/dL (NEG) Urine Ketones (Stick) Negative mg/dL (NEG) Urine Blood Negative (NEG) Urine Nitrite Negative (NEG) Urine Bilirubin Negative (NEG) Urine Urobilinogen Dipstick 0.2 mg/dL (0.2 mg/dL) Urine Leukocyte Esterase Negative (NEG) Urine RBC 0 /HPF (0-2) Urine WBC Occ /HPF (0-4) Urine Amorphous Sediment Present /HPF Urine Bacteria 0 /HPF (0-FEW) Sodium Level 136 mmol/L (136-145) 138 mmol/L (136-145) Potassium Level 5.2 mmol/L (3.5-5.1) 4.3 mmol/L (3.5-5.1) Chloride Level 101 mmol/L (98-107) 103 mmol/L (98-107) Carbon Dioxide Level 27 mmol/L (21-32) 29 mmol/L (21-32) Anion Gap 8 (6-14) 6 (6-14) Blood Urea Nitrogen 26 mg/dL (7-20) 19 mg/dL (7-20) Creatinine 0.6 mg/dL (0.6-1.0) 0.6 mg/dL (0.6-1.0) Estimated GFR (Cockcroft-Gault) 94.3 94.3 BUN/Creatinine Ratio 43 (6-20) 32 (6-20) Glucose Level 98 mg/dL (70-99) 159 mg/dL (70-99) Calcium Level 9.1 mg/dL (8.5-10.1) 8.9 mg/dL (8.5-10.1) Magnesium Level 2.3 mg/dL (1.8-2.4) Total Bilirubin 0.8 mg/dL (0.2-1.0) 0.7 mg/dL (0.2-1.0) Aspartate Amino Transf (AST/SGOT) 13 U/L (15-37) 10 U/L (15-37) Alanine Aminotransferase (ALT/SGPT) 8 U/L (14-59) < 6 U/L (14-59) Alkaline Phosphatase 95 U/L (46-116) 91 U/L (46-116) Troponin I Quantitative < 0.017 ng/mL (0.000-0.055) Total Protein 6.7 g/dL (6.4-8.2) 7.2 g/dL (6.4-8.2) Albumin 2.9 g/dL (3.4-5.0) 2.8 g/dL (3.4-5.0) Albumin/Globulin Ratio 0.8 (1.0-1.7) 0.6 (1.0-1.7) Laboratory Tests Test 04/07/19 09:15 White Blood Count 23.7 x10^3/uL (4.0-11.0) Red Blood Count 4.19 x10^6/uL (3.50-5.40) Hemoglobin 11.2 g/dL (12.0-15.5) Hematocrit 36.0 % (36.0-47.0) Mean Corpuscular Volume 86 fL (79-100) Mean Corpuscular Hemoglobin 27 pg (25-35) Mean Corpuscular Hemoglobin Concent 31 g/dL (31-37) Red Cell Distribution Width 28.8 % (11.5-14.5) Platelet Count 943 x10^3/uL (140-400) Neutrophils (%) (Auto) 94 % (31-73) Lymphocytes (%) (Auto) 3 % (24-48) Monocytes (%) (Auto) 2 % (0-9) Eosinophils (%) (Auto) 1 % (0-3) Basophils (%) (Auto) 0 % (0-3) Neutrophils # (Auto) 22.4 x10^3/uL (1.8-7.7) Lymphocytes # (Auto) 0.6 x10^3/uL (1.0-4.8) Monocytes # (Auto) 0.5 x10^3/uL (0.0-1.1) Eosinophils # (Auto) 0.2 x10^3/uL (0.0-0.7) Basophils # (Auto) 0.1 x10^3/uL (0.0-0.2) Sodium Level 138 mmol/L (136-145) Potassium Level 4.3 mmol/L (3.5-5.1) Chloride Level 103 mmol/L (98-107) Carbon Dioxide Level 29 mmol/L (21-32) Anion Gap 6 (6-14) Blood Urea Nitrogen 19 mg/dL (7-20) Creatinine 0.6 mg/dL (0.6-1.0) Estimated GFR (Cockcroft-Gault) 94.3 BUN/Creatinine Ratio 32 (6-20) Glucose Level 159 mg/dL (70-99) Calcium Level 8.9 mg/dL (8.5-10.1) Total Bilirubin 0.7 mg/dL (0.2-1.0) Aspartate Amino Transf (AST/SGOT) 10 U/L (15-37) Alanine Aminotransferase (ALT/SGPT) < 6 U/L (14-59) Alkaline Phosphatase 91 U/L (46-116) Total Protein 7.2 g/dL (6.4-8.2) Albumin 2.8 g/dL (3.4-5.0) Albumin/Globulin Ratio 0.6 (1.0-1.7) Medications Active Scripts Medications Dose Route/Sig Max Daily Dose Days Date Category Multi Vitamin Daily (Multivitamin) 1 Each Tablet 1 Tab PO DAILY 07/02/18 Reported Miralax (Polyethylene Glycol 3350) Unknown Strength Powd.pack Unknown Dose PO BID 07/02/18 Reported Metoprolol Tartrate 25 Mg Tablet 1 Tab PO DAILY 07/02/18 Reported Duoneb 0.5-3(2.5) Mg/3 Ml (Albuterol/Ipratropium) 3 Ml Ampul.neb 3 Ml NEB Q6HRS PRN 07/02/18 Reported Vitamin B-12 (Cyanocobalamin (Vitamin B-12)) 1,000 Mcg Tablet 1 Tab PO DAILY 07/02/18 Reported Tramadol Hcl 50 Mg Tablet 100 Mg PO Q6HRS PRN 07/02/18 Reported Zofran Odt (Ondansetron) 4 Mg Tab.rapdis 0.5 Tab SL PRN Q6HRS PRN 05/06/18 Reported Biofreeze (Menthol) 118 Ml Gel..ml. 118 Ml TP PRN QID PRN 05/06/18 Reported [place] Saline (Sodium Chloride) 50 Ml Drops 1 Tu NS TID PRN 05/06/18 Reported Hydroxyurea 500 Mg Capsule 500 Mg PO BID 05/06/18 Reported Milk Of Magnesia (Magnesium Hydroxide) 400 Mg/5 Ml Oral.susp 30 Ml PO PRN DAILY PRN 05/06/18 Reported Maalox Maximum Strength Susp (Mag Hydrox/Al Hydrox/Simeth) 355 Ml Oral.susp 30 Ml PO PRN Q4HRS PRN 05/06/18 Reported Aquaphor Ointment (Mineral Oil/Hydrophil Petrolat) 396 Gm Oint...g. 396 Gm TP BID 05/06/18 Reported Furosemide 40 Mg Tablet 1 Tab PO DAILY 05/06/18 Reported Valium (Diazepam) 2 Mg Tablet 2 Mg PO PRN TID PRN 05/06/18 Reported Myrbetriq (Mirabegron) 25 Mg Tab.er.24h 25 Mg PO DAILY 05/06/18 Reported Acetaminophen Ext.release (Acetaminophen) 650 Mg Tablet.er 650 Mg PO Q6HRS 05/06/18 Reported Ibuprofen 400 Mg Tablet 400 Mg PO QID 05/06/18 Reported Colace (Docusate Sodium) 100 Mg Capsule 1 Cap PO DAILYWLUN 05/06/18 Reported Aspirin 81 Mg Tab.chew 1 Tab PO DAILY 05/06/18 Reported Vitamin B-12 (Cyanocobalamin (Vitamin B-12)) 1,000 Mcg Tablet 1 Tab PO DAILYWLUN 05/06/18 Reported Gabapentin (Gabapentin) 100 Mg Capsule 300 Mg PO QHS 05/06/18 Reported Prednisone 5 Mg Tablet 5 Mg PO DAILY 06/26/17 Reported Albuterol Sulfate Conc Neb Soln (Albuterol Sulfate) 2.5 Mg/0.5 Ml Vial.neb 2.5 Mg NEB PRN Q4HRS PRN 04/01/17 Reported Impression . IMPRESSION: 1. Acute respiratory failure, multifactorial in etiology. 2. Status post fall with T6 fracture. 3. Abnormal chest x-ray, enlarging lung mass. The patient previously did not want any further evaluation. 4. Chronic obstructive pulmonary disease. 5. History of breast cancer. 6. History of colon cancer. Plan . PLAN AND RECOMMENDATIONS: 1. Titrate FiO2 to keep O2 saturation 92%. 2. cont bronchodilator. 3. cont inhaled corticosteroid. 4. CT of the chest reviewed, slowly growing lung mass, nodules, med lad, malignancy is a concern, she wants to think about further diagnostic procedure, she is weak, would not tolerate tx if this is cancer, will discuss w primary. 5. Avoid oversedation. discussed w pt MARY TRIANA MD Apr 08, 2019 07:35
[2019-04-08] MEDS: ASPIRIN CHEWABLE 81 MG TABLET. PO SCH (08:57)
[2019-04-08] MEDS: predniSONE 5 MG TABLET PO SCH (08:58)
[2019-04-08] MEDS: IBUPROFEN 400 MG TABLET. PO SCH ×4 (08:58→21:34)
[2019-04-08] MEDS: CYANOCOBALAMIN (VITAMIN B-12) 1,000 MCG TABLET. PO SCH (08:58)
[2019-04-08] MEDS: CALCITONIN,SALMON NASAL 200 UNITS/SPRAY 3.7ML BOTTLE. NS SCH (08:59)
--- NOTE | 2019-04-08 09:01 | PDOC ---
Provider Note Provider Note more alert , wet cough- daughter syas RUL lesion is infection, ? MAC, so will not pursue biopsy etc- will add duragesic and get hospice involved-[facility] when ready, comfort care only, no vertebro[natyty SUSAN LANIER MD Apr 08, 2019 09:00
[2019-04-08] MEDS: HYDROXYUREA 500 MG CAPSULE PO SCH ×2 (09:05→21:44)
[2019-04-08] MEDS ORDERED: fentaNYL 25MCG/HR PATCH 1 PATCH PATCH.TD72 TD SCH (10:00)
[2019-04-08 11:00] VITALS: BP 103/50
[2019-04-08] MEDS: DOCUSATE SODIUM 100 MG CAPSULE. PO SCH (12:00)
[2019-04-08 15:00] VITALS: BP 104/55
[2019-04-08 19:00] VITALS: BP 108/52
[2019-04-08] MEDS: GABAPENTIN 300 MG CAPSULE. PO SCH (21:33)
[2019-04-08 23:02] VITALS: BP 105/59
[2019-04-09 03:11] VITALS: BP 106/64
[2019-04-09] MEDS: BUDESONIDE 0.5 MG/2 ML NEBU. NEB SCH ×2 (06:58→20:36)
[2019-04-09] MEDS: IPRATRPIUM/ALBUTEROL 0.5/2.5MG 3 ML NEBU. NEB SCH ×4 (06:58→20:36)
[2019-04-09 07:00] VITALS: BP 101/53
--- NOTE | 2019-04-09 08:38 | PDOC ---
Provider Note Provider Note sleeping, vss, no temp- after discuss w/ daughter 04/08 can jason castillo when hospice arranged - add duragesic patch trial SUSAN LANIER MD Apr 09, 2019 08:38
[2019-04-09] MEDS: IBUPROFEN 400 MG TABLET. PO SCH ×4 (08:40→21:30)
[2019-04-09] MEDS: predniSONE 5 MG TABLET PO SCH (08:40)
[2019-04-09] MEDS: ASPIRIN CHEWABLE 81 MG TABLET. PO SCH (08:40)
[2019-04-09] MEDS: CALCITONIN,SALMON NASAL 200 UNITS/SPRAY 3.7ML BOTTLE. NS SCH (08:40)
[2019-04-09] MEDS: CYANOCOBALAMIN (VITAMIN B-12) 1,000 MCG TABLET. PO SCH (08:41)
[2019-04-09] MEDS: HYDROXYUREA 500 MG CAPSULE PO SCH ×2 (08:47→21:30)
[2019-04-09 11:00] VITALS: BP 105/63
[2019-04-09] MEDS: MULTIVITAMIN with MINERAL TABLET. PO SCH (12:11)
[2019-04-09] MEDS: DOCUSATE SODIUM 100 MG CAPSULE. PO SCH (12:11)
[2019-04-09] MEDS: ASCORBIC ACID 500 MG TABLET PO SCH ×2 (12:11→21:30)
--- NOTE | 2019-04-09 14:04 | PDOC ---
PULMONARY PROGRESS NOTES Subjective feels better, tired, sob better, no cough, Vitals Vital Signs Date Time Temp Pulse Resp B/P (MAP) Pulse Ox O2 Delivery O2 Flow Rate FiO2 04/09/19 11:12 93 Room Air 04/09/19 11:00 97.9 95 18 105/63 (77) 97.9 04/08/19 17:27 2.0 ROS: No Nausea General: Alert, No acute distress HEENT: Other (nc at perrl ) Lungs: Crackles Cardiovascular: S1, S2 Abdomen: Soft, Non-tender Neuro Exam: Alert Extremities: No Edema Skin: Warm Medications Active Scripts Medications Dose Route/Sig Max Daily Dose Days Date Category Multi Vitamin Daily (Multivitamin) 1 Each Tablet 1 Tab PO DAILY 07/02/18 Reported Miralax (Polyethylene Glycol 3350) Unknown Strength Powd.pack Unknown Dose PO BID 07/02/18 Reported Metoprolol Tartrate 25 Mg Tablet 1 Tab PO DAILY 07/02/18 Reported Duoneb 0.5-3(2.5) Mg/3 Ml (Albuterol/Ipratropium) 3 Ml Ampul.neb 3 Ml NEB Q6HRS PRN 07/02/18 Reported Vitamin B-12 (Cyanocobalamin (Vitamin B-12)) 1,000 Mcg Tablet 1 Tab PO DAILY 07/02/18 Reported Tramadol Hcl 50 Mg Tablet 100 Mg PO Q6HRS PRN 07/02/18 Reported Zofran Odt (Ondansetron) 4 Mg Tab.rapdis 0.5 Tab SL PRN Q6HRS PRN 05/06/18 Reported Biofreeze (Menthol) 118 Ml Gel..ml. 118 Ml TP PRN QID PRN 05/06/18 Reported [place] Saline (Sodium Chloride) 50 Ml Drops 1 Tu NS TID PRN 05/06/18 Reported Hydroxyurea 500 Mg Capsule 500 Mg PO BID 05/06/18 Reported Milk Of Magnesia (Magnesium Hydroxide) 400 Mg/5 Ml Oral.susp 30 Ml PO PRN DAILY PRN 05/06/18 Reported Maalox Maximum Strength Susp (Mag Hydrox/Al Hydrox/Simeth) 355 Ml Oral.susp 30 Ml PO PRN Q4HRS PRN 05/06/18 Reported Aquaphor Ointment (Mineral Oil/Hydrophil Petrolat) 396 Gm Oint...g. 396 Gm TP BID 05/06/18 Reported Furosemide 40 Mg Tablet 1 Tab PO DAILY 05/06/18 Reported Valium (Diazepam) 2 Mg Tablet 2 Mg PO PRN TID PRN 05/06/18 Reported Myrbetriq (Mirabegron) 25 Mg Tab.er.24h 25 Mg PO DAILY 05/06/18 Reported Acetaminophen Ext.release (Acetaminophen) 650 Mg Tablet.er 650 Mg PO Q6HRS 05/06/18 Reported Ibuprofen 400 Mg Tablet 400 Mg PO QID 05/06/18 Reported Colace (Docusate Sodium) 100 Mg Capsule 1 Cap PO DAILYWLUN 05/06/18 Reported Aspirin 81 Mg Tab.chew 1 Tab PO DAILY 05/06/18 Reported Vitamin B-12 (Cyanocobalamin (Vitamin B-12)) 1,000 Mcg Tablet 1 Tab PO DAILYWLUN 05/06/18 Reported Gabapentin (Gabapentin) 100 Mg Capsule 300 Mg PO QHS 05/06/18 Reported Prednisone 5 Mg Tablet 5 Mg PO DAILY 06/26/17 Reported Albuterol Sulfate Conc Neb Soln (Albuterol Sulfate) 2.5 Mg/0.5 Ml Vial.neb 2.5 Mg NEB PRN Q4HRS PRN 04/01/17 Reported Impression . IMPRESSION: 1. Acute respiratory failure, multifactorial in etiology. 2. Status post fall with T6 fracture. 3. Abnormal chest x-ray, enlarging lung mass RUL. The patient previously did not want any further evaluation. 4. Chronic obstructive pulmonary disease. 5. History of breast cancer. 6. History of colon cancer. Plan . 1. Titrate FiO2 to keep O2 saturation 92%. 2. cont bronchodilator. 3. cont inhaled corticosteroid. 4. CT of the chest reviewed, slowly growing Necrotic lung mass vs abscess RUL, nodules, sub-carinal adenopathy, malignancy is a concern, d/w family, she wants to go with hospice per notes.she is weak, would not tolerate tx if this is cancer, 5. d/w RN discussed w pt SHAYAN APPIAH MD Apr 09, 2019 14:04
[2019-04-09 15:00] VITALS: BP 107/62
--- NOTE | 2019-04-09 15:40 | PDOC ---
PROGRESS NOTES Subjective Subjective HPI - f/u of Miki ROS - no CP Objective Objective Vital Signs Date Time Temp Pulse Resp B/P (MAP) Pulse Ox O2 Delivery O2 Flow Rate FiO2 04/09/19 15:24 Room Air 04/09/19 11:12 93 04/09/19 11:00 97.9 95 18 105/63 (77) 97.9 04/08/19 17:27 2.0 Intake and Output 04/09/19 07:00 Intake Total 100 ml Output Total 0 ml Balance 100 ml Intake Oral 100 ml Output Urine Total 0 ml # Voids 4 Physical Exam Heart: Normal S1, Normal S2 General: Alert, No acute distress Lungs: Clear to auscultation Assessment Assessment Problems Medical Problems: (1) Fall Status: Acute (2) Head injury Status: Acute (3) Scalp laceration Status: Acute (4) Thoracic compression fracture Status: Acute Assessment/Plan 89 yo F w/ P annie, admitted with fall, compression fracture, slowly growing lung mass, underlying dementia, noted to have elevated plt count which is actually better than it was a couple weeks ago after adjusting dose of hydrea to 1000mg/day. 1. P.quetaa - Recommend to continue 1000mg hydrea to prevent clotting issues, but no other recs. She should continue hydrea as dosed for now. 2. Lung mass - Would not recommend pursuing further work-up of lung mass per pt wishes. Appreciate lamar addison. Comment Review of Relevant I have reviewed the following items raudel (where applicable) has been applied. Medications Current Medications Hydromorphone HCl (Dilaudid) 0.25 mg 1X ONCE IV Last administered on 04/06/19at 11:50; Start 04/06/19 at 10:45; Stop 04/06/19 at 10:46; Status DC Ondansetron HCl (Zofran) 4 mg 1X ONCE IV Last administered on 04/06/19at 11:48; Start 04/06/19 at 10:45; Stop 04/06/19 at 10:46; Status DC Ondansetron HCl (Zofran) 4 mg PRN Q8HRS PRN IV NAUSEA/VOMITING; Start 04/06/19 at 11:30; Stop 04/07/19 at 11:29; Status DC Hydromorphone HCl (Dilaudid) 0.025 mg PRN Q2HRS PRN IV MODERATE TO SEVERE PAIN; Start 04/06/19 at 11:30; Status Cancel Hydromorphone HCl (Dilaudid) 0.25 mg PRN Q2HR PRN IVP MODERATE PAIN Last administered on 04/07/19at 08:53; Start 04/06/19 at 14:15 Cyanocobalamin (Vitamin B-12) 1,000 mcg DAILY PO Last administered on 04/09/19at 08:41; Start 04/07/19 at 11:00 Cyanocobalamin (Vitamin B-12) 1,000 mcg DAILYWLUN PO ; Start 04/07/19 at 12:00; Status UNV Diazepam (Valium) 2 mg PRN TID PRN PO ANXIETY; Start 04/07/19 at 10:30 Docusate Sodium (Colace) 100 mg DAILYWLUN PO Last administered on 04/09/19at 12:11; Start 04/07/19 at 12:00 Gabapentin (Neurontin) 300 mg QHS PO Last administered on 04/08/19at 21:33; Start 04/07/19 at 21:00 Hydroxyurea (Hydrea) 500 mg BID PO Last administered on 04/09/19at 08:47; Start 04/07/19 at 11:00 Ibuprofen (Motrin) 400 mg QID PO Last administered on 04/09/19at 14:02; Start 04/07/19 at 13:00 Albuterol Sulfate (Ventolin Neb Soln) 2.5 mg PRN Q6HRS PRN NEB SHORTNESS OF BREATH; Start 04/07/19 at 10:30 Al Hydroxide/Mg Hydroxide (Mylanta Plus Xs) 30 ml PRN Q4HRS PRN PO STOMACH CRAMPING; Start 04/07/19 at 10:30 Magnesium Hydroxide (Milk Of Magnesia) 2,400 mg PRN DAILY PRN PO CONSTIPATION; Start 04/07/19 at 10:30 Metoprolol Tartrate (Lopressor) 25 mg DAILY PO ; Start 04/07/19 at 11:00; Stop 04/08/19 at 08:59; Status DC Ondansetron HCl (Zofran Odt) 2 mg PRN Q6HRS PRN PO NAUSEA; Start 04/07/19 at 10:30 Prednisone (Prednisone) 5 mg DAILY PO Last administered on 04/09/19 08:40; Start 04/07/19 at 11:00 Tramadol HCl (Ultram) 100 mg PRN Q6HRS PRN PO PAIN Last administered on 04/07/19 19:16; Start 04/07/19 at 10:30 Calcitonin [place] (Miacalcin Nasal) 1 spray DAILY NS Last administered on 04/09/19 08:40; Start 04/07/19 at 11:00 Albuterol/ Ipratropium (Duoneb) 3 ml RTQID NEB Last administered on 04/09/19 15:24; Start 04/07/19 at 12:00 Budesonide (Pulmicort) 0.5 mg RTBID NEB Last administered on 04/09/19 06:58; Start 04/07/19 at 12:00 Aspirin (Children'S Aspirin) 162 mg DAILYWBKFT PO Last administered on 04/09/19 08:40; Start 04/07/19 at 13:00 Iohexol (Omnipaque 300 Mg/ml) 75 ml 1X ONCE IV Last administered on 04/07/19at 12:45; Start 04/07/19 at 12:45; Stop 04/07/19 at 12:47; Status DC Info (CONTRAST GIVEN -- Rx MONITORING) 1 each PRN DAILY PRN MC SEE COMMENTS; Start 04/07/19 at 13:00; Stop 04/09/19 at 12:59; Status DC Fentanyl (Duragesic 25mcg/ Hr Patch) 1 patch Q3DAYS TD Last administered on 04/08/19 11:20; Start 04/08/19 at 10:00 Ascorbic Acid (Vitamin C) 500 mg BID PO Last administered on 04/09/19 12:11; Start 04/09/19 at 11:00 Multivitamins (Thera M Plus) 1 tab DAILY PO Last administered on 04/09/19 12:11; Start 04/09/19 at 11:00 Active Scripts Active Reported Multi Vitamin Daily (Multivitamin) 1 Each Tablet 1 Tab PO DAILY Miralax (Polyethylene Glycol 3350) Unknown Strength Powd.pack Unknown Dose PO BID Metoprolol Tartrate 25 Mg Tablet 1 Tab PO DAILY Duoneb 0.5-3(2.5) Mg/3 Ml (Albuterol/Ipratropium) 3 Ml Ampul.neb 3 Ml NEB Q6HRS PRN Vitamin B-12 (Cyanocobalamin (Vitamin B-12)) 1,000 Mcg Tablet 1 Tab PO DAILY Tramadol Hcl 50 Mg Tablet 100 Mg PO Q6HRS PRN Zofran Odt (Ondansetron) 4 Mg Tab.rapdis 0.5 Tab SL PRN Q6HRS PRN Biofreeze (Menthol) 118 Ml Gel..ml. 118 Ml TP PRN QID PRN [place] Saline (Sodium Chloride) 50 Ml Drops 1 Tu NS TID PRN Hydroxyurea 500 Mg Capsule 500 Mg PO BID Milk Of Magnesia (Magnesium Hydroxide) 400 Mg/5 Ml Oral.susp 30 Ml PO PRN DAILY PRN Maalox Maximum Strength Susp (Mag Hydrox/Al Hydrox/Simeth) 355 Ml Oral.susp 30 Ml PO PRN Q4HRS PRN Aquaphor Ointment (Mineral Oil/Hydrophil Petrolat) 396 Gm Oint...g. 396 Gm TP BID Furosemide 40 Mg Tablet 1 Tab PO DAILY Valium (Diazepam) 2 Mg Tablet 2 Mg PO PRN TID PRN Myrbetriq (Mirabegron) 25 Mg Tab.er.24h 25 Mg PO DAILY Acetaminophen Ext.release (Acetaminophen) 650 Mg Tablet.er 650 Mg PO Q6HRS Ibuprofen 400 Mg Tablet 400 Mg PO QID Colace (Docusate Sodium) 100 Mg Capsule 1 Cap PO DAILYWLUN Aspirin 81 Mg Tab.chew 1 Tab PO DAILY Vitamin B-12 (Cyanocobalamin (Vitamin B-12)) 1,000 Mcg Tablet 1 Tab PO DAILYWLUN Gabapentin (Gabapentin) 100 Mg Capsule 300 Mg PO QHS Prednisone 5 Mg Tablet 5 Mg PO DAILY Albuterol Sulfate Conc Neb Soln (Albuterol Sulfate) 2.5 Mg/0.5 Ml Vial.neb 2.5 Mg NEB PRN Q4HRS PRN Vitals/I & O Vital Sign - Last 24 Hours 04/08/19 04/08/19 04/08/19 04/08/19 17:27 18:20 19:00 20:00 Temp 98.2 98.2 Pulse 97 Resp 18 B/P (MAP) 108/52 (70) Pulse Ox 92 94 O2 Delivery Room Air Room Air Room Air Room Air O2 Flow Rate 2.0 04/08/19 04/09/19 04/09/19 04/09/19 23:02 03:11 06:58 07:00 Temp 98.3 98.3 98.0 98.3 98.3 98.0 Pulse 93 81 99 Resp 20 20 18 B/P (MAP) 105/59 (74) 106/64 (78) 101/53 (69) Pulse Ox 92 92 94 96 O2 Delivery Room Air Room Air Room Air Room Air 04/09/19 04/09/19 04/09/19 04/09/19 07:30 11:00 11:12 15:24 Temp 97.9 97.9 Pulse 95 Resp 18 B/P (MAP) 105/63 (77) Pulse Ox 91 93 O2 Delivery Room Air Room Air Room Air Room Air Intake and Output 04/08/19 04/08/19 04/09/19 15:00 23:00 07:00 Intake Total 100 ml Output Total 0 ml Balance 100 ml 0 ml Nutrition Consultation Dietary Evaluation: Recommendations by RD: Add supplement feedings Comments: mvi and vit c for wound healing Expected Outcomes/Goals: pt is comfort care Malnutrition Findings: Body Fat Depletion (Non Severe: Mod to Severe Weight Status: Underweight CONNOR MONTEZ MD Apr 09, 2019 15:40
--- NOTE | 2019-04-09 15:46 | NUR ---
SS following up with discharge planning. SS received notification that physician wants pt set up with hospice services. SS attempted to call pt's family with no success. Pt is from [facility], ; fax [phone], and is able to return when ready. SS phoned and faxed clinical to [place] and [facility], [facility], ; fax [phone]. SS spoke with William from [facility] and she reported that she will follow up with pt's family and [place].
--- NOTE | 2019-04-09 16:04 | NUR ---
Wound Care Wound care consult for multiple wounds. Pt has stage III to right posterior heel, dressed with Medihoney alginate and foam dressing, recommend to change every 3 days. Pt has 2 stage II PU to sacrum and coccyx, dressed with Xeroform and foam, recommend to change every 3 days. Pt has lacerations to scalp that are well approximated with chaitanya and a ST to LUIS E that is well approximated with steri-strips. No other wounds noted on skin inspection. P500 bed and WC cushion ordered for pt. Pt educated on PU prevention. WC will continue to follow for possible changes.
--- NOTE | 2019-04-09 16:55 | NUR ---
Spoke with pt's daughter in law, Echo Cuevas re: pt's wishes on things such as having a bx done, returning to [facility], etc. Dr. James waite re: palliative care to assist pt and family with communication on pt's desires with disease process.
--- NOTE | 2019-04-09 18:34 | NUR ---
Dr. Ramirez notified of pt's daughter in law's concerns re: what pt wants as well as other family members re: bx, hospice, etc. Orders received.
[2019-04-09 19:00] VITALS: BP 107/62
[2019-04-09] MEDS: GABAPENTIN 300 MG CAPSULE. PO SCH (21:29)
[2019-04-09 23:00] VITALS: BP 116/65
[2019-04-10 03:00] VITALS: BP 125/69
[2019-04-10 07:00] VITALS: BP 125/68
[2019-04-10] MEDS: BUDESONIDE 0.5 MG/2 ML NEBU. NEB SCH (07:23)
[2019-04-10] MEDS: IPRATRPIUM/ALBUTEROL 0.5/2.5MG 3 ML NEBU. NEB SCH ×2 (07:23→11:07)
--- NOTE | 2019-04-10 08:39 | PDOC ---
Provider Note Provider Note [id number] SUSAN LANIER MD Apr 10, 2019 08:39
[2019-04-10] MEDS: CYANOCOBALAMIN (VITAMIN B-12) 1,000 MCG TABLET. PO SCH (08:42)
[2019-04-10] MEDS: predniSONE 5 MG TABLET PO SCH (08:42)
[2019-04-10] MEDS: MULTIVITAMIN with MINERAL TABLET. PO SCH (08:42)
[2019-04-10] MEDS: ASCORBIC ACID 500 MG TABLET PO SCH (08:43)
[2019-04-10] MEDS: CALCITONIN,SALMON NASAL 200 UNITS/SPRAY 3.7ML BOTTLE. NS SCH (08:43)
[2019-04-10] MEDS: IBUPROFEN 400 MG TABLET. PO SCH ×2 (08:43→12:27)
[2019-04-10] MEDS: ASPIRIN CHEWABLE 81 MG TABLET. PO SCH (08:43)
[2019-04-10] MEDS: HYDROXYUREA 500 MG CAPSULE PO SCH (08:51)
--- NOTE | 2019-04-10 08:55 | PDOC ---
PROGRESS NOTES Subjective Subjective HPI - f/u of Robb.annie ROS - no CP Objective Objective Vital Signs Date Time Temp Pulse Resp B/P (MAP) Pulse Ox O2 Delivery O2 Flow Rate FiO2 04/10/19 07:24 95 Room Air 04/10/19 07:00 97.7 61 18 125/68 (87) 97.7 04/08/19 17:27 2.0 Intake and Output 04/10/19 07:00 Intake Total 1140 ml Output Total 1 ml Balance 1139 ml Intake Oral 1140 ml Stool Total 1 ml # Voids 5 Physical Exam Heart: Normal S1, Normal S2 General: Alert, Oriented X3, No acute distress Lungs: Clear to auscultation Assessment Assessment Problems Medical Problems: (1) Fall Status: Acute (2) Head injury Status: Acute (3) Scalp laceration Status: Acute (4) Thoracic compression fracture Status: Acute Assessment/Plan 89 yo F w/ P annie, admitted with fall, compression fracture, slowly growing lung mass, underlying dementia, noted to have elevated plt count which is actually better than it was a couple weeks ago after adjusting dose of hydrea to 1000mg/day. 1. P.vera - Recommend to continue 1000mg hydrea to prevent clotting issues, but no other recs. She should continue hydrea as dosed for now. 2. Lung mass - Would not recommend pursuing further work-up of lung mass per pt wishes. Appreciate lamar addison. I d/w DR Ramirez I d/w pt's dtr who agrees with conservative/supportive management. Comment Review of Relevant I have reviewed the following items raudel (where applicable) has been applied. Medications Current Medications Hydromorphone HCl (Dilaudid) 0.25 mg 1X ONCE IV Last administered on 04/06/19at 11:50; Start 04/06/19 at 10:45; Stop 04/06/19 at 10:46; Status DC Ondansetron HCl (Zofran) 4 mg 1X ONCE IV Last administered on 04/06/19at 11:48; Start 04/06/19 at 10:45; Stop 04/06/19 at 10:46; Status DC Ondansetron HCl (Zofran) 4 mg PRN Q8HRS PRN IV NAUSEA/VOMITING; Start 04/06/19 at 11:30; Stop 04/07/19 at 11:29; Status DC Hydromorphone HCl (Dilaudid) 0.025 mg PRN Q2HRS PRN IV MODERATE TO SEVERE PAIN; Start 04/06/19 at 11:30; Status Cancel Hydromorphone HCl (Dilaudid) 0.25 mg PRN Q2HR PRN IVP MODERATE PAIN Last administered on 04/07/19at 08:53; Start 04/06/19 at 14:15 Cyanocobalamin (Vitamin B-12) 1,000 mcg DAILY PO Last administered on 04/10/19at 08:42; Start 04/07/19 at 11:00 Cyanocobalamin (Vitamin B-12) 1,000 mcg DAILYWLUN PO ; Start 04/07/19 at 12:00; Status UNV Diazepam (Valium) 2 mg PRN TID PRN PO ANXIETY; Start 04/07/19 at 10:30 Docusate Sodium (Colace) 100 mg DAILYWLUN PO Last administered on 04/09/19at 12:11; Start 04/07/19 at 12:00 Gabapentin (Neurontin) 300 mg QHS PO Last administered on 04/09/19at 21:29; Start 04/07/19 at 21:00 Hydroxyurea (Hydrea) 500 mg BID PO Last administered on 04/10/19at 08:51; Start 04/07/19 at 11:00 Ibuprofen (Motrin) 400 mg QID PO Last administered on 04/10/19at 08:43; Start 04/07/19 at 13:00 Albuterol Sulfate (Ventolin Neb Soln) 2.5 mg PRN Q6HRS PRN NEB SHORTNESS OF BREATH; Start 04/07/19 at 10:30 Al Hydroxide/Mg Hydroxide (Mylanta Plus Xs) 30 ml PRN Q4HRS PRN PO STOMACH CRAMPING; Start 04/07/19 at 10:30 Magnesium Hydroxide (Milk Of Magnesia) 2,400 mg PRN DAILY PRN PO CONSTIPATION; Start 04/07/19 at 10:30 Metoprolol Tartrate (Lopressor) 25 mg DAILY PO ; Start 04/07/19 at 11:00; Stop 04/08/19 at 08:59; Status DC Ondansetron HCl (Zofran Odt) 2 mg PRN Q6HRS PRN PO NAUSEA; Start 04/07/19 at 10:30 Prednisone (Prednisone) 5 mg DAILY PO Last administered on 04/10/19 08:42; Start 04/07/19 at 11:00 Tramadol HCl (Ultram) 100 mg PRN Q6HRS PRN PO PAIN Last administered on 04/07/19 19:16; Start 04/07/19 at 10:30 Calcitonin [place] (Miacalcin Nasal) 1 spray DAILY NS Last administered on 04/10/19 08:43; Start 04/07/19 at 11:00 Albuterol/ Ipratropium (Duoneb) 3 ml RTQID NEB Last administered on 04/10/19 07:23; Start 04/07/19 at 12:00 Budesonide (Pulmicort) 0.5 mg RTBID NEB Last administered on 04/10/19 07:23; Start 04/07/19 at 12:00 Aspirin (Children'S Aspirin) 162 mg DAILYWBKFT PO Last administered on 04/10/19 08:43; Start 04/07/19 at 13:00 Iohexol (Omnipaque 300 Mg/ml) 75 ml 1X ONCE IV Last administered on 04/07/19 12:45; Start 04/07/19 at 12:45; Stop 04/07/19 at 12:47; Status DC Info (CONTRAST GIVEN -- Rx MONITORING) 1 each PRN DAILY PRN MC SEE COMMENTS; Start 04/07/19 at 13:00; Stop 04/09/19 at 12:59; Status DC Fentanyl (Duragesic 25mcg/ Hr Patch) 1 patch Q3DAYS TD Last administered on 04/08/19 11:20; Start 04/08/19 at 10:00 Ascorbic Acid (Vitamin C) 500 mg BID PO Last administered on 04/10/19 08:43; Start 04/09/19 at 11:00 Multivitamins (Thera M Plus) 1 tab DAILY PO Last administered on 04/10/19 08:42; Start 04/09/19 at 11:00 Active Scripts Active Reported Multi Vitamin Daily (Multivitamin) 1 Each Tablet 1 Tab PO DAILY Miralax (Polyethylene Glycol 3350) Unknown Strength Powd.pack Unknown Dose PO BID Metoprolol Tartrate 25 Mg Tablet 1 Tab PO DAILY Duoneb 0.5-3(2.5) Mg/3 Ml (Albuterol/Ipratropium) 3 Ml Ampul.neb 3 Ml NEB Q6HRS PRN Vitamin B-12 (Cyanocobalamin (Vitamin B-12)) 1,000 Mcg Tablet 1 Tab PO DAILY Tramadol Hcl 50 Mg Tablet 100 Mg PO Q6HRS PRN Zofran Odt (Ondansetron) 4 Mg Tab.rapdis 0.5 Tab SL PRN Q6HRS PRN Biofreeze (Menthol) 118 Ml Gel..ml. 118 Ml TP PRN QID PRN [place] Saline (Sodium Chloride) 50 Ml Drops 1 Tu NS TID PRN Hydroxyurea 500 Mg Capsule 500 Mg PO BID Milk Of Magnesia (Magnesium Hydroxide) 400 Mg/5 Ml Oral.susp 30 Ml PO PRN DAILY PRN Maalox Maximum Strength Susp (Mag Hydrox/Al Hydrox/Simeth) 355 Ml Oral.susp 30 Ml PO PRN Q4HRS PRN Aquaphor Ointment (Mineral Oil/Hydrophil Petrolat) 396 Gm Oint...g. 396 Gm TP BID Furosemide 40 Mg Tablet 1 Tab PO DAILY Valium (Diazepam) 2 Mg Tablet 2 Mg PO PRN TID PRN Myrbetriq (Mirabegron) 25 Mg Tab.er.24h 25 Mg PO DAILY Acetaminophen Ext.release (Acetaminophen) 650 Mg Tablet.er 650 Mg PO Q6HRS Ibuprofen 400 Mg Tablet 400 Mg PO QID Colace (Docusate Sodium) 100 Mg Capsule 1 Cap PO DAILYWLUN Aspirin 81 Mg Tab.chew 1 Tab PO DAILY Vitamin B-12 (Cyanocobalamin (Vitamin B-12)) 1,000 Mcg Tablet 1 Tab PO DAILYWLUN Gabapentin (Gabapentin) 100 Mg Capsule 300 Mg PO QHS Prednisone 5 Mg Tablet 5 Mg PO DAILY Albuterol Sulfate Conc Neb Soln (Albuterol Sulfate) 2.5 Mg/0.5 Ml Vial.neb 2.5 Mg NEB PRN Q4HRS PRN Vitals/I & O Vital Sign - Last 24 Hours 04/09/19 04/09/19 04/09/19 04/09/19 11:00 11:12 15:00 15:24 Temp 97.9 97.7 97.9 97.7 Pulse 95 89 Resp 18 18 B/P (MAP) 105/63 (77) 107/62 (77) Pulse Ox 91 93 96 O2 Delivery Room Air Room Air Room Air Room Air 04/09/19 04/09/19 04/09/19 04/09/19 19:00 19:50 20:37 23:00 Temp 98.5 98.5 Pulse 87 97 Resp 18 18 B/P (MAP) 107/62 (77) 116/65 (82) Pulse Ox 96 94 95 O2 Delivery Room Air Room Air Room Air Room Air 04/10/19 04/10/19 04/10/19 03:00 07:00 07:24 Temp 98.2 97.7 98.2 97.7 Pulse 73 61 Resp 18 18 B/P (MAP) 125/69 (87) 125/68 (87) Pulse Ox 93 90 95 O2 Delivery Room Air Room Air Room Air Intake and Output 04/09/19 04/09/19 04/10/19 15:00 23:00 07:00 Intake Total 580 ml 440 ml 120 ml Output Total 1 ml Balance 580 ml 439 ml 120 ml Nutrition Consultation Dietary Evaluation: Recommendations by RD: Add supplement feedings Comments: mvi and vit c for wound healing Expected Outcomes/Goals: pt is comfort care Malnutrition Findings: Body Fat Depletion (Non Severe: Mod to Severe Weight Status: Underweight CONNOR MONTEZ MD Apr 10, 2019 08:55
--- NOTE | 2019-04-10 08:59 | DS ---
DATE OF DISCHARGE: 04/10/2019 HOSPITAL SUMMARY: An 89-year-old white female with back pain from a recent fall and has a T6 compression fracture that is probably relatively new. CT scan of the chest showed enlarging right upper lobe mass, it was felt to be benign in the past, maybe some sort of untreated malignancy. She has polycythemia vera and her white count was 22,000; platelets were high at 900,000 consistent with that disorder. She was seen in consultation by Hematology and Pulmonary and family really wish to pursue hospice and comfort care, which is arranged at this time. No biopsies will be done as it is more likely the right upper lobe process of some sort of unrecognized infection, perhaps MAC but not likely malignancy and she could not tolerate treatment or intervention as well. Pain medicine was instituted with Duragesic and she seems to have some good results from that and will be discharged to hospice at her current living facility. FINAL DIAGNOSES: 1. T6 compression fracture from trauma. 2. Polycythemia vera, progressive. 3. Right upper lobe lesion benign and likely unrecognized infection. 4. Moderately severe malnutrition. OPERATIONS, PROCEDURES, COMPLICATIONS: None. CONSULTATIONS: Dr. Pimentel, Dr. Rangel and Dr. Lawson. DISPOSITION: We will add Duragesic patches and Miacalcin nasal spray for comfort care. Home meds remain the same. No new medications. She remains a DNR patient and hospice has been arranged for her at her living facility. Prognosis is ultimately terminal. SUSAN LANIER MD DR: TAPAN/brian JOB#: [id number] / [id number]
--- NOTE | 2019-04-10 10:49 | PDOC ---
PULMONARY PROGRESS NOTES Subjective feels better, tired, sob better, no cough, Vitals Vital Signs Date Time Temp Pulse Resp B/P (MAP) Pulse Ox O2 Delivery O2 Flow Rate FiO2 04/10/19 08:00 Room Air 04/10/19 07:24 95 04/10/19 07:00 97.7 61 18 125/68 (87) 97.7 ROS: No Nausea General: Alert, No acute distress HEENT: Other (nc at perrl ) Lungs: Crackles Cardiovascular: S1, S2 Abdomen: Soft, Non-tender Neuro Exam: Alert Extremities: No Edema Skin: Warm Medications Active Scripts Medications Dose Route/Sig Max Daily Dose Days Date Category Multi Vitamin Daily (Multivitamin) 1 Each Tablet 1 Tab PO DAILY 07/02/18 Reported Miralax (Polyethylene Glycol 3350) Unknown Strength Powd.pack Unknown Dose PO BID 07/02/18 Reported Metoprolol Tartrate 25 Mg Tablet 1 Tab PO DAILY 07/02/18 Reported Duoneb 0.5-3(2.5) Mg/3 Ml (Albuterol/Ipratropium) 3 Ml Ampul.neb 3 Ml NEB Q6HRS PRN 07/02/18 Reported Vitamin B-12 (Cyanocobalamin (Vitamin B-12)) 1,000 Mcg Tablet 1 Tab PO DAILY 07/02/18 Reported Tramadol Hcl 50 Mg Tablet 100 Mg PO Q6HRS PRN 07/02/18 Reported Zofran Odt (Ondansetron) 4 Mg Tab.rapdis 0.5 Tab SL PRN Q6HRS PRN 05/06/18 Reported Biofreeze (Menthol) 118 Ml Gel..ml. 118 Ml TP PRN QID PRN 05/06/18 Reported [place] Saline (Sodium Chloride) 50 Ml Drops 1 Tu NS TID PRN 05/06/18 Reported Hydroxyurea 500 Mg Capsule 500 Mg PO BID 05/06/18 Reported Milk Of Magnesia (Magnesium Hydroxide) 400 Mg/5 Ml Oral.susp 30 Ml PO PRN DAILY PRN 05/06/18 Reported Maalox Maximum Strength Susp (Mag Hydrox/Al Hydrox/Simeth) 355 Ml Oral.susp 30 Ml PO PRN Q4HRS PRN 05/06/18 Reported Aquaphor Ointment (Mineral Oil/Hydrophil Petrolat) 396 Gm Oint...g. 396 Gm TP BID 05/06/18 Reported Furosemide 40 Mg Tablet 1 Tab PO DAILY 05/06/18 Reported Valium (Diazepam) 2 Mg Tablet 2 Mg PO PRN TID PRN 05/06/18 Reported Myrbetriq (Mirabegron) 25 Mg Tab.er.24h 25 Mg PO DAILY 05/06/18 Reported Acetaminophen Ext.release (Acetaminophen) 650 Mg Tablet.er 650 Mg PO Q6HRS 05/06/18 Reported Ibuprofen 400 Mg Tablet 400 Mg PO QID 05/06/18 Reported Colace (Docusate Sodium) 100 Mg Capsule 1 Cap PO DAILYWLUN 05/06/18 Reported Aspirin 81 Mg Tab.chew 1 Tab PO DAILY 05/06/18 Reported Vitamin B-12 (Cyanocobalamin (Vitamin B-12)) 1,000 Mcg Tablet 1 Tab PO DAILYWLUN 05/06/18 Reported Gabapentin (Gabapentin) 100 Mg Capsule 300 Mg PO QHS 05/06/18 Reported Prednisone 5 Mg Tablet 5 Mg PO DAILY 06/26/17 Reported Albuterol Sulfate Conc Neb Soln (Albuterol Sulfate) 2.5 Mg/0.5 Ml Vial.neb 2.5 Mg NEB PRN Q4HRS PRN 04/01/17 Reported Impression . IMPRESSION: 1. Acute respiratory failure, multifactorial in etiology. 2. Status post fall with T6 fracture. 3. Abnormal chest x-ray, enlarging lung mass RUL. The patient previously did not want any further evaluation. 4. Chronic obstructive pulmonary disease. 5. History of breast cancer. 6. History of colon cancer. Plan . 1. Titrate FiO2 to keep O2 saturation 92%. 2. cont bronchodilator. 3. cont inhaled corticosteroid. 4. CT of the chest reviewed, slowly growing Necrotic lung mass vs abscess RUL, nodules, sub-carinal adenopathy, malignancy is a concern, d/w family, she wants to go with hospice per notes.she is weak, would not tolerate tx if this is cancer, 5. d/w RN discussed w pt/ d/w SHAYAN Rivas MD Apr 10, 2019 10:49
[2019-04-10 11:00] VITALS: BP 109/69
--- NOTE | 2019-04-10 11:19 | NUR ---
SS following up with discharge planning. Discharge orders received for return to [place] with [facility]. SS phoned and faxed discharge orders to [facility], ; fax [phone], and [facility], ; fax [phone]. Pt will discharge today and return to [place] at 1330 via stretcher transport. [facility] to provide transportation. Pt's daughter has admission appointment with [facility] at [place] on 04/11/2019 at 0900. Pt, pt's family, and pt's RN notified.
[2019-04-10] MEDS: DOCUSATE SODIUM 100 MG CAPSULE. PO SCH (12:26)
--- NOTE | 2019-04-10 13:17 | NUR ---
Attempted to call report to [facility] and was transferred to the nurse's station. The staff that answered asked this nurse to call back to supervisor picking crew the line at the other nurse's station. This nurse returned the phone call and phone rang for about a minute with no answer. Information to get updates from this nurse placed with patient packet.
--- NOTE | 2019-04-10 13:54 | NUR ---
Discharge Note: GREGG BHAKTA [address] [place] [address] Discharge instructions and discharge home medications reviewed with Other facility and a copy given. All questions have been answered and understanding verbalized. The following instructions and handouts were given: Diet, activity, medication list and follow up instructions provided to Damien. Discontinued lines and drains: Peripheral IV discontinued at previous time with catheter intact. Patient discharged to [facility] with Ambulance Personnel via Stretcher
--- NOTE | 2019-04-10 13:54 | PDOC2 ---
PALLIATIVE CARE Palliative Care Note Palliative Care Patient seen at [address] Ramirez to discuss plan of care. Patient alert. Visiting with daughter Veronica Medical Assessment reviewed with daughter. : 1. Acute respiratory failure, multifactorial in etiology. 2. Status post fall with T6 fracture. 3. Abnormal chest x-ray, enlarging lung mass RUL. The patient previously did not want any further evaluation. 4. Chronic obstructive pulmonary disease. 5. History of breast cancer. 6. History of colon cancer. Patient and family state they have discussed with Dr Pimentel and Dr. Ramirez. They would like to return to [place] with [facility]. Outside the Hospital DNR/DNI form signed. Angelika LO informed and will assist with discharge plan. MORA MARTINI Apr 10, 2019 13:54
--- NOTE | 2019-04-11 08:36 | PDOC ---
Provider Note Provider Note [id number] SUSAN LANIER MD Apr 11, 2019 08:36
--- NOTE | 2019-04-11 08:42 | HP ---
ADMIT DATE: CHIEF COMPLAINT: Back pain. HISTORY OF PRESENT ILLNESS: An 89-year-old white female of Dr. Power's who had a recent fall, has back pain with a T6 compression fracture. She has a history of prior lung mass that was biopsied but the CT shows enlargement at this point. PAST MEDICAL HISTORY: Well documented in the old record. ALLERGIES: Multiple allergies as noted. SOCIAL HISTORY: Lives with her daughter. Has been ill in many ways for many months. FAMILY HISTORY: Unremarkable. REVIEW OF SYSTEMS: No other complaints. OBJECTIVE: ENT: Mild pallor, otherwise normal. NECK: No masses, nodes or bruits. LUNGS: Clear. CARDIOVASCULAR: Regular rate. No murmur. BACK: Tender to percussion over mid thoracic fracture of the spine. ABDOMEN: Soft, benign and nontender. EXTREMITIES: Reasonably good pedal pulses. No edema, joint or skin lesions. NEUROLOGIC: Physiologic, nonfocal. ASSESSMENT: 1. T6 compression fracture, likely traumatic, cannot rule out pathologic possibility. 2. Enlarging right upper lobe mass that raised the question of undiagnosed malignancy or even mycobacterium avium complex or progressive infection, but she is not functionally capable of undergoing aggressive evaluation and certainly about any treatment for this should be malignant. 3. Hematologic disorder. PLAN: As ordered. Comfort care, DNR. SUASN LANIER MD DR: TAPAN/nts JOB#: [id number] / [id number]
== END 2019-04-10 13:57 | disposition hospice, inpatient (51) | DRG 551 ==
LOC: ER 06:40 → 4 NORTH 11:22
PROVIDERS: ADMIT Family Medicine; ATTEND Family Medicine
DX: S22.059A Unspecified fracture of T5-T6 vertebra, initial encounter for closed fracture (principal); J96.00 Acute respiratory failure, unspecified whether with hypoxia or hypercapnia; E43 Unspecified severe protein-calorie malnutrition; Z68.1 Body mass index [BMI] 19.9 or less, adult; J44.9 Chronic obstructive pulmonary disease, unspecified; F41.9 Anxiety disorder, unspecified; F32.9 Major depressive disorder, single episode, unspecified; G43.909 Migraine, unspecified, not intractable, without status migrainosus; I10 Essential (primary) hypertension; S01.01XA Laceration without foreign body of scalp, initial encounter; W18.39XA Other fall on same level, initial encounter; Z66 Do not resuscitate; Z51.5 Encounter for palliative care; D64.9 Anemia, unspecified; F03.90 Unspecified dementia, unspecified severity, without behavioral disturbance, psychotic disturbance, mood disturbance, and anxiety; D45 Polycythemia vera; K21.9 Gastro-esophageal reflux disease without esophagitis; Z85.3 Personal history of malignant neoplasm of breast; Z90.710 Acquired absence of both cervix and uterus; Z90.11 Acquired absence of right breast and nipple; Z88.1 Allergy status to other antibiotic agents; Z88.5 Allergy status to narcotic agent; Z88.2 Allergy status to sulfonamides; Z88.8 Allergy status to other drugs, medicaments and biological substances; Y93.89 Activity, other specified; Y92.89 Other specified places as the place of occurrence of the external cause; Y99.8 Other external cause status; Z99.81 Dependence on supplemental oxygen; Z85.118 Personal history of other malignant neoplasm of bronchus and lung; Z85.038 Personal history of other malignant neoplasm of large intestine; Z85.6 Personal history of leukemia
CPT/HCPCS: 36415; 70450; 71045; 71260; 72125; 72128; 72131; 80053; 81001; 83735; 84484; 85007; 85025; 93005; 94640; 96374; J0630; J1170; J2405; J7512; J7620; J7626; Q9967; 97110; 97530; 97535; 99285-25; G0378